=== PATIENT | male | born 1935 | race Caucasian/White ===

== ENCOUNTER 2018-06-06 11:31 | Outpatient (REF) | payer OTHER, SELFPAY ==
[2018-06-06 19:11] LABS: HCT 44.2 % (40.0-50.0); HGB 14.5 g/dL (13.5-17.5); Mean Corp. HGB Concentration 32.8 g/dL (32.0-36.0); Mean Corpuscular Volume 94.4 fL (80-95); Platelet Count 236 x1000/uL (130-400); RBC 4.68 m/cumm (4.50-6.00); RBC Distribution Width 13.1 % (11.8-14.1); White Blood Cell Count 7.59 k/cumm (4.4-10.8)
[2018-06-06 19:35] LABS: ALT 28 U/L (12-78); Albumin 3.8 g/dL (3.4-5.0); BUN 32 mg/dL (7-18); CREATININE 1.82 mg/dL (0.70-1.30); Calcium 9.3 mg/dL (8.5-10.1); Chloride 104 mmol/L (98-107); Estimated GFR 35.93 (mL/min/1.73m2); Glucose 104 mg/dL (70-100); Potassium 4.1 mmol/L (3.5-5.1); Sodium 141 mmol/L (136-145)
[2018-06-06 23:24] LABS: LDL CHOLESTEROL 82 mg/dL (<100)
== END 2018-06-06 11:51 ==
LOC: NCHCN 11:31
PROVIDERS: PCP Internal Medicine; Visit Provider Internal Medicine
DX: E78.5 Hyperlipidemia, unspecified (principal); L57.8 Other skin changes due to chronic exposure to nonionizing radiation; N18.3 Chronic kidney disease, stage 3 (moderate)
CPT/HCPCS: 80069; 83721; 85027; 84460

== ENCOUNTER 2018-11-11 08:52 | Outpatient (REF) | payer OTHER, SELFPAY ==
[2018-11-11 19:33] LABS: HCT 45.4 % (40.0-50.0); HGB 14.6 g/dL (13.5-17.5); Mean Corp. HGB Concentration 32.2 g/dL (32.0-36.0); Mean Corpuscular Hemoglobin 30.6 pg (27.0-33.0); Mean Corpuscular Volume 95.2 fL (80-95); Platelet Count 234 x1000/uL (130-400); RBC 4.77 m/cumm (4.50-6.00); RBC Distribution Width 13.5 % (11.8-14.1); White Blood Cell Count 6.51 k/cumm (4.4-10.8)
[2018-11-11 19:42] LABS: Iron 98 ug/dL (50-175); Total Iron Binding Capacity 315 ug/dL (250-450); Transferrin Sat 31 % (20-55)
[2018-11-11 19:54] LABS: PROTEIN 17.4 mg/dL (0.0-11.9)
[2018-11-11 20:09] LABS: Albumin 3.8 g/dL (3.4-5.0); Anion Gap 7.2 mmol/L (3-11); BUN 39 mg/dL (7-18); CO2 28.8 mmol/L (21.0-32.0); CREATININE 1.71 mg/dL (0.70-1.30); Calcium 9.1 mg/dL (8.5-10.1); Chloride 107 mmol/L (98-107); Estimated GFR 38.61 (mL/min/1.73m2); Ferritin 85 ng/mL (8-388); Potassium 4.3 mmol/L (3.5-5.1); Sodium 143 mmol/L (136-145)
[2018-11-11 20:22] LABS: COMMENT (LAB VIEW ONLY) 94.82 mg/dL; Microalb ug/mg Crea 16.3 ug/mg Cr
[2018-11-11 20:23] LABS: PHOSPHORUS 2.8 mg/dL (2.6-4.7); Uric Acid 8.5 mg/dL (3.5-7.2)
[2018-11-14 10:54] LABS: Parathyroid Hormone,Intact 94 pg/ml (19-88)
== END 2018-11-11 09:12 ==
LOC: LBN 08:52
PROVIDERS: PCP Internal Medicine; Visit Provider Internal Medicine Nephrology
DX: N18.3 Chronic kidney disease, stage 3 (moderate) (principal)
CPT/HCPCS: 80051; 84520; 85027; 82040; 82043; 82310; 82565; 82570; 82728; 83540; 83550; 83970; 84100; 84156; 84550

== ENCOUNTER 2019-12-11 13:26 | Outpatient (REF) | payer OTHER, SELFPAY ==
[2019-12-11 19:36] LABS: HCT 40.3 % (40.0-50.0); HGB 13.3 g/dL (13.5-17.5); Mean Corpuscular Hemoglobin 31.6 pg (27.0-33.0); Mean Corpuscular Volume 95.7 fL (80-95); Platelet Count 244 x1000/uL (130-400); RBC 4.21 m/cumm (4.50-6.00); RBC Distribution Width 13.6 % (11.8-14.1); White Blood Cell Count 7.49 k/cumm (4.4-10.8)
[2019-12-11 19:58] LABS: ALT 20 U/L (16-63); Albumin 3.7 g/dL (3.4-5.0); Anion Gap 7.9 mmol/L (3-11); BUN 41 mg/dL (7-18); CO2 26.1 mmol/L (21.0-32.0); CREATININE 1.79 mg/dL (0.70-1.30); Calcium 8.8 mg/dL (8.5-10.1); Chloride 105 mmol/L (98-107); Estimated GFR 36.54 (mL/min/1.73m2); Glucose 100 mg/dL (74-106); LDL CHOLESTEROL 81 mg/dL (<100); Potassium 4.1 mmol/L (3.5-5.1); Sodium 139 mmol/L (136-145)
[2019-12-11 20:10] LABS: PHOSPHORUS 2.9 mg/dL (2.6-4.7)
== END 2019-12-11 13:46 ==
LOC: NCHCN 13:26
PROVIDERS: PCP Internal Medicine; Visit Provider Internal Medicine
DX: N18.3 Chronic kidney disease, stage 3 (moderate) (principal); I10 Essential (primary) hypertension; E78.5 Hyperlipidemia, unspecified
CPT/HCPCS: 80069; 83721; 85027; 84460

== ENCOUNTER 2020-06-20 13:43 | Outpatient (REF) | payer OTHER, SELFPAY ==
[2020-06-20 16:01] LABS: Anion Gap 5.8 mmol/L (3-11); BUN 34 mg/dL (7-18); CO2 29.2 mmol/L (21.0-32.0); CREATININE 1.8 mg/dL (0.70-1.30); Calcium 9.5 mg/dL (8.5-10.1); Chloride 106 mmol/L (98-107); Estimated GFR 36.21 (mL/min/1.73m2); Glucose 96 mg/dL (74-106); Potassium 4.5 mmol/L (3.5-5.1); Sodium 141 mmol/L (136-145); TSH 0.92 uIU/mL (0.36-3.74); Vitamin B12 646 pg/mL (193-986)
== END 2020-06-20 14:03 ==
LOC: NCHCN 13:43
PROVIDERS: PCP Internal Medicine; Visit Provider Internal Medicine
DX: I10 Essential (primary) hypertension (principal); N18.30 Chronic kidney disease, stage 3 unspecified; G31.84 Mild cognitive impairment of uncertain or unknown etiology; R32 Unspecified urinary incontinence
CPT/HCPCS: 80048; 82607; 84443

== ENCOUNTER 2020-10-10 08:36 | Outpatient (REF) | payer OTHER, SELFPAY ==
[2020-10-10 18:41] LABS: HCT 43.9 % (40.0-50.0); HGB 14.4 g/dL (13.5-17.5); MCH 30.9 pg (27.0-33.0); MCHC 32.8 % (32.0-36.0); MCV 94.2 fL (80-95); MPV 10.5 fL (8.0-11.0); Platelet Count 260 10^3/uL (130-400); RBC 4.66 10^6/uL (4.36-5.78); RDW 13.1 % (11.8-14.1); RDW-SD 45.4 fL; WBC 7.39 10^3/uL (4.4-10.8)
[2020-10-10 18:56] LABS: Albumin 4.1 g/dL (3.4-5.0); Anion Gap 7.7 mmol/L (3-11); BUN 41 mg/dL (7-18); CO2 27.3 mmol/L (21.0-32.0); CREATININE 1.8 mg/dL (0.70-1.30); Calcium 9.4 mg/dL (8.5-10.1); Chloride 105 mmol/L (98-107); Estimated GFR 36.21 (mL/min/1.73m2); Glucose 99 mg/dL (74-106); PHOSPHORUS 3.2 mg/dL (2.6-4.7); Potassium 4.1 mmol/L (3.5-5.1); Sodium 140 mmol/L (136-145)
[2020-10-10 18:58] LABS: Iron 118 ug/dL (65-175); Total Iron Binding Capacity 338 ug/dL (250-450); Transferrin Sat 35 % (20-55)
[2020-10-10 19:02] LABS: COMMENT (LAB VIEW ONLY) 102.17 mg/dL; Microalb ug/mg Crea 23.9 ug/mg Cr
[2020-10-10 19:27] LABS: Ferritin 94 ng/mL (26-388)
[2020-10-14 10:51] LABS: Parathyroid Hormone,Intact 142 pg/mL (19-88)
== END 2020-10-10 08:37 | disposition home or self-care (01) ==
LOC: LBN 08:36
PROVIDERS: PCP Internal Medicine; Visit Provider Internal Medicine Nephrology
DX: N18.32 Chronic kidney disease, stage 3b (principal)
CPT/HCPCS: 80069; 85027; 82043; 82570; 82728; 83540; 83550; 83970

== ENCOUNTER 2021-06-17 16:39 | Outpatient (REF) | payer MEDICARE, SELFPAY ==
[2021-06-17 20:29] LABS: Bacteria Negative HPF (Negative); C & S Indicated? No; Crystals Many Triple Phos HPF (Negative); Epithelial Cells Negative HPF (Negative); Mucus Negative (Negative); RBC 20-50 HPF (0-2); WBC Negative HPF (0-5)
[2021-06-18 17:54] LABS: PSA, Diagnostic 12.4 ng/mL (0.0-6.5)
== END 2021-06-17 16:40 | disposition home or self-care (01) ==
LOC: NCHCN 16:39
PROVIDERS: PCP Internal Medicine; Visit Provider Physician Assistant
DX: R35.0 Frequency of micturition (principal); R31.9 Hematuria, unspecified; Z80.42 Family history of malignant neoplasm of prostate
CPT/HCPCS: 81015; 84153

== ENCOUNTER 2021-10-14 13:21 | Outpatient (REF) | payer MEDICARE, SELFPAY ==
[2021-10-14 19:33] LABS: Albumin 3.5 g/dL (3.4-5.0); Anion Gap 8.8 mmol/L (3-11); BUN 39 mg/dL (7-18); CO2 26.2 mmol/L (21.0-32.0); CREATININE 1.9 mg/dL (0.70-1.30); Calcium 9.1 mg/dL (8.5-10.1); Chloride 110 mmol/L (98-107); Estimated GFR 33.94 (mL/min/1.73m2); Glucose 102 mg/dL (74-106); PHOSPHORUS 2.8 mg/dL (2.6-4.7); Potassium 4.6 mmol/L (3.5-5.1); Sodium 145 mmol/L (136-145)
== END 2021-10-14 13:22 | disposition home or self-care (01) ==
LOC: LBN 13:21
PROVIDERS: PCP Internal Medicine; Visit Provider Internal Medicine Nephrology
DX: N18.32 Chronic kidney disease, stage 3b (principal)
CPT/HCPCS: 80051; 80069; 85027

== ENCOUNTER 2021-10-15 11:13 | Outpatient (REF) | payer MEDICARE, SELFPAY ==
[2021-10-15 20:41] LABS: HGB 13.5 g/dL (13.5-17.5); MCH 32.1 pg (27.0-33.0); MCHC 33.8 % (32.0-36.0); MCV 95 fL (80-95); Platelet Count 247 10^3/uL (130-400); RDW-SD 45.6 fL; WBC 11.09 10^3/uL (4.4-10.8)
== END 2021-10-15 11:14 | disposition home or self-care (01) ==
LOC: LBN 11:13
PROVIDERS: PCP Internal Medicine; Visit Provider Internal Medicine Nephrology
DX: N18.32 Chronic kidney disease, stage 3b (principal)
CPT/HCPCS: 85027

== ENCOUNTER 2022-01-16 19:02 | Outpatient (REF) | payer MEDICARE, SELFPAY ==
[2022-01-19 09:33] LABS: PSA, Screening 10.7 ng/mL (<=6.5)
== END 2022-01-16 19:03 | disposition home or self-care (01) ==
LOC: NCHCN 19:02
PROVIDERS: PCP Internal Medicine; Visit Provider Internal Medicine
DX: R97.20 Elevated prostate specific antigen [PSA] (principal); Z12.5 Encounter for screening for malignant neoplasm of prostate
CPT/HCPCS: 84153

== ENCOUNTER 2022-07-15 16:17 | Outpatient (REF) | payer MEDICARE, SELFPAY ==
[2022-07-15 21:32] LABS: Calculated LDL 77 mg/dL (<100); Cholesterol 178 mg/dL (<200); HDL Cholesterol 48 mg/dL (40-60); Triglyceride 267 mg/dL (<150)
[2022-07-15 21:51] LABS: Anion Gap 7.3 mmol/L (3-11); BUN 46 mg/dL (7-18); CO2 29.7 mmol/L (21.0-32.0); CREATININE 1.9 mg/dL (0.70-1.30); Calcium 9.8 mg/dL (8.5-10.1); Chloride 106 mmol/L (98-107); Estimated GFR 34.14 (mL/min/1.73m2); Glucose 116 mg/dL (74-106); Potassium 4.3 mmol/L (3.5-5.1); Sodium 143 mmol/L (136-145); Uric Acid 9.1 mg/dL (3.5-7.2)
[2022-07-16 18:09] LABS: PSA, Screening 13.3 ng/mL (<=6.5)
== END 2022-07-15 16:18 | disposition home or self-care (01) ==
LOC: NCHCN 16:17
PROVIDERS: PCP Internal Medicine; Visit Provider Internal Medicine
DX: R97.20 Elevated prostate specific antigen [PSA]; G31.84 Mild cognitive impairment of uncertain or unknown etiology; N18.30 Chronic kidney disease, stage 3 unspecified; Z12.5 Encounter for screening for malignant neoplasm of prostate; I10 Essential (primary) hypertension; E78.5 Hyperlipidemia, unspecified; R79.89 Other specified abnormal findings of blood chemistry
CPT/HCPCS: 80048; 80061; 84153; 84550

== ENCOUNTER 2022-10-07 21:52 | Outpatient (REF) | payer MEDICARE, SELFPAY ==
[2022-10-07 19:44] LABS: HCT 42.3 % (40.0-50.0); HGB 14.2 g/dL (13.5-17.5); MCHC 33.6 % (32.0-36.0); MCV 95 fL (80-95); MPV 10.2 fL (8.0-11.0); Platelet Count 307 10^3/uL (130-400); RBC 4.44 10^6/uL (4.36-5.78); RDW 12.9 % (11.8-14.1); RDW-SD 45.8 fL; WBC 7.94 10^3/uL (4.4-10.8)
[2022-10-07 19:54] LABS: Albumin 3.6 g/dL (3.4-5.0); Anion Gap 6.6 mmol/L (3-11); BUN 36 mg/dL (7-18); CO2 28.4 mmol/L (21.0-32.0); Calcium 9.4 mg/dL (8.5-10.1); Chloride 105 mmol/L (98-107); Glucose 112 mg/dL (74-106); PHOSPHORUS 2.8 mg/dL (2.6-4.7); Potassium 4.2 mmol/L (3.5-5.1); Sodium 140 mmol/L (136-145)
[2022-10-07 20:25] LABS: Creatinine,Urine 293.37 mg/dL; PROTEIN 24.1 mg/dL (0.0-11.9)
[2022-10-08 19:51] LABS: Parathyroid Hormone,Intact 198 pg/mL (19-88)
== END 2022-10-07 21:53 | disposition home or self-care (01) ==
LOC: LBN 21:52
PROVIDERS: PCP Internal Medicine; Visit Provider Internal Medicine Nephrology
DX: N18.32 Chronic kidney disease, stage 3b (principal)
CPT/HCPCS: 80069; 85027; 82565; 83970; 84156

== ENCOUNTER 2023-01-11 18:04 | Outpatient (REF) | payer MEDICARE, SELFPAY ==
[2023-01-11 19:39] LABS: ALT 22 U/L (16-63); Anion Gap 7.3 mmol/L (3-11); BUN 44 mg/dL (7-18); CO2 28.7 mmol/L (21.0-32.0); CREATININE 1.9 mg/dL (0.70-1.30); Calcium 9.4 mg/dL (8.5-10.1); Calculated LDL 48 mg/dL (<100); Chloride 106 mmol/L (98-107); Cholesterol 127 mg/dL (<200); Estimated GFR 33.93 (mL/min/1.73m2); Glucose 85 mg/dL (74-106); HDL Cholesterol 46 mg/dL (40-60); Potassium 4.4 mmol/L (3.5-5.1); Sodium 142 mmol/L (136-145); Triglyceride 166 mg/dL (<150)
[2023-01-11 19:51] LABS: Creatine Kinase 88 U/L (39-308)
[2023-01-12 18:33] LABS: PSA, Diagnostic 9.4 ng/mL (<=6.5)
== END 2023-01-11 18:05 | disposition home or self-care (01) ==
LOC: NCHCN 18:04
PROVIDERS: PCP Internal Medicine; Visit Provider Internal Medicine
DX: E78.5 Hyperlipidemia, unspecified (principal); I10 Essential (primary) hypertension; K21.9 Gastro-esophageal reflux disease without esophagitis; R97.20 Elevated prostate specific antigen [PSA]; N18.30 Chronic kidney disease, stage 3 unspecified
CPT/HCPCS: 80048; 80061; 82550; 84153; 84460

== ENCOUNTER 2023-03-22 13:38 | Outpatient (REF) | payer MEDICARE, SELFPAY ==
[2023-03-22 19:07] LABS: Uric Acid 8.5 mg/dL (3.5-7.2)
== END 2023-03-22 13:39 | disposition home or self-care (01) ==
LOC: NCHCN 13:38
PROVIDERS: PCP Internal Medicine; Visit Provider Nurse Practitioner Family
DX: M25.561 Pain in right knee (principal)
CPT/HCPCS: 84550

== ENCOUNTER 2023-07-16 21:09 | Outpatient (REF) | payer MEDICARE, SELFPAY ==
--- NOTE | 2023-07-16 11:15 | SKI_PTH ---
PAT[facility]: [id number] AGE/SX: 88/M ROOM: RE07/16/[address]: Henry Lehman : 1935 BED: DIS: 07/16/2023 SPEC #: [id number] RECD: 07/19/23 12:39 STATUS: TEDDY RUBIO #: [id number] KOURTNEY: 07/16/23 11:[address]: Henry Lehman DEPT: Surgical Specimen RECD BY: Allison Cali Tissues: 1 - SKIN BIOPSY(SHAVE/PUNCH) Procedures: SKIN LEVEL 4 Comments: [id number]
== END 2023-07-16 21:10 | disposition home or self-care (01) ==
LOC: NCHCN 21:09
PROVIDERS: PCP Internal Medicine; Referring Provider Internal Medicine; Visit Provider Internal Medicine
DX: C44.91 Basal cell carcinoma of skin, unspecified (principal)
CPT/HCPCS: 88305

== ENCOUNTER 2024-04-05 13:11 | Outpatient (REF) | payer MEDICARE, SELFPAY ==
--- OUTSIDE RECORDS SUMMARY | 2024-04-05 13:12 | XMS_ITS | Encounter Summary ---
Author Organization [facility] Address [facility] [address] [place] [id number] Care Team Providers Care Application Developer Manager Name Role Phone Henry Lehman MD Primary Care Provider [phone] Reason for Visit * Consultation (Routine) - Closed Specialty Diagnoses / Procedures Referred By Indu baum Referred To Contact Dermatology Diagnoses Squamous cell carcinoma, face Wilmer Cisneros MD [facility] [address] [place] [address] Maxim Rodriguez MD [facility] [address] [place] [address] Referral ID Status Reason Start Date Expiration Date V isits Requested Visits Authorized [id number] Closed Consult, Test & Treat 09/04/2023 09/03/2024 1 1 Encounter Details Date Type Department Care Team (Latest Contact Info) Description 09/14/2023 8:00 AM EDT Procedure visit Dermatology at [facility] [address] [place] [address] Maxim Rodriguez MD 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 Social History Tobacco Use Types Packs/Day Years Used Date Smoking Tobacco: Former Smokeless Tobacco: Never Sex and Gender Information Value Date Recorded Sex Assigned at Not on file Gender Identity Not on file Sexual Orientation Not on file documented as of this encounter Last Filed Vital Signs Vital Sign Reading Time Taken Comments Blood Pressure 125/63 09/14/2023 7:41 AM EDT Pulse 65 09/14/2023 7:41 AM EDT Temperature - - Respiratory Rate - - Oxygen Saturation - - Inhaled Oxygen Concentration - - Weight - - Height - - Body Mass Index - - documented in this encounter Progress Notes * Maxim Rodriguez MD - 09/14/2023 8:00 AM EDT Images from the original note were not included. Summary of Procedure(s): Site: right upper cutaneous lip Tumor Type: Squamous Cell Carcinoma + incidental basal cell carcinoma Stages to clear tumor: 3 Repair: advancement flap Images: The patient was asked to call with any issues and is aware that I am available 14/12 should questions arise. Maxim Rodriguez MD PhD Mohs Micrographic Surgery and Dermatologic Oncology Department of Dermatology Please note that I have reviewed the preoperative checklist from today's nursing visit including relevant social history and medications. I have reviewed the preoperative photos if available and the biopsy report. VITAL SIGNS: BP 125/63 (BP Location (NBP): Right arm, Patient Position: Sitting, BP Cuff Sizes: Adult (25-34 cm)) Pulse 65 PHYSICAL EXAMINATION: General: patient is awake, alert, oriented and in no acute distress. Skin: Focused examination of surgical site(s) performed which shows a well healed biopsy site with poorly defined surrounding hyperkeratosis and induration. PHYSICIAN REVIEW OF REPORTS, RECORDS, IMAGES: 1) The accompanying pathology report(s) associated with aforementioned biopsy slide(s) were/was also reviewed. Assessment: Anup Stanton is a 88 y.o. male presenting for: 1. 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 Plan: 1. Findings from the biopsy report, today's clinical exam, and other pertinent details were reviewed with patient today. All questions were answered. 2. Discussed treatment options based on the above findings. We recommended Mohs micrographic surgery for treatment of this tumor. Mohs micrographic surgery was indicated due to patient, site and/or tumor characteristics (see operative report for specific indication). 3. We discussed risks, benefits, and alternative treatment options to the Mohs micrographic surgeryprocedure and pertinent information including but not limited to the following: Risks include bleeding, infection, scar, recurrence, incomplete tumor removal or inability to cure with surgery alone if the tumor features are more aggressive than the initial pathology indicates. Occasionally, additional adjuvant treatments may be recommended. Additional risks include large wound, prolonged wound and healing, pain, swelling, bruising, increased appearance of vessels or worsening erythema of baseline skin; more rarely risks include damage to underlying structures such as nerves, cartilage, or muscle which could lead to temporary or permanent loss of sensation or motor function. Benefit is precise tumor removal If reconstruction is performed, it is specific to the patient and defect. Discussed that the shape, size, depth of the wound is often not known until the tumor is cleared and thus the reconstruction options are sometimes not known until after tumor clearance. Occasionally,referrals to other providers may be recommended for reconstruction based on patient preference and need. Reviewed the pros and cons of common reconstructions used for this tumor type, size, and location, and that reconstruction may lead to change in appearance. Natural history of scar was discussed, including that the scar will continue to mature for 1-2 years. Recommended avoidance of special ointments or scar creams, and avoidance of direct sun exposure to the scar for optimal recovery. Reviewed that there are some aspects of cosmesis that are dependent on patient's characteristics such as age, skin laxity/texture factors, inflammatory skin diseases such as rosacea, prior surgery/radiation, degree of actinic damage, smoking status, strength of the patient's immune system, diligentwound care, medications, and genetics. Having Mohs surgery may lead to physical limitations for optimal healing, such as restricted physical activity and heavy lifting. 4. Signs and symptoms of skin cancer reviewed. Patient to report any new, changing, or symptomatic lesions and follow up with his or her sales marketing or other skin provider. 5. Discussed avoiding direct sun exposure to scars for best cosmetic result. Note initiated by FLORENCIO Fay LPN has performed the documentation for this encounter in the presence of and acting as a scribe for Dr. Rodriguez I performed the above scribed service and agree with the accuracy of the documentation in this encounter. Reviewed and signed by: Maxim Rodriguez Dermat[facility] * Maxim Rodriguez MD - 09/14/2023 8:00 AM EDT Mohs micrographic Surgery Operative Report Patient name: Anup Stanton : 1935 Date: 09/14/2023 Staff Surgeon and Pathologist: Maxim Rodriguez MD PhD Nursing/Merchandise Presentation Associate(s): Loly Vazquez RN, Gavi Osborne LPN, Dulce Echeverria, Josie Bojorquez RN Coffee Bar Attendant (s): Pan Vinson CMA Pre-operative diagnosis: Squamous cell carcinoma Post-operative diagnosis: Same as above + incidental basal cell carcinoma Location/Site: Right upper cutaneous lip Procedure: Mohs micrographic surgery Indication(s) for Mohs micrographic surgery: Anatomic location for tissue conservation Stages: 3 Preoperative size of tumor: 1.5 x 1.7 cm Final defect size: 2.0 x 2.0 cm Stage I The nature and purpose of the procedure, associated risks, possible consequences and complications,and alternative forms of treatment were explained in detail. We reviewed the possible repairs basedon the clinical appearance of tumor but discussed that often the repair options may not be known until the tumor has yusuf extirpated. Informed consent and permission to take photographs were obtained. The site was confirmed with the patient/authorized sales representative rural power/referring physician and/or a photograph form time of biopsy. A pre-operative time-out (procedural pause) was conducted with no unresolved discrepancies noted. Local anesthesia was obtained with 0.5 % lidocaine with 1:200,000 epinephrine. The surgical site was prepped and draped in the usual sterile manner. A 1-2 mm margin was excised around clinically evident tumor as a complete layer. Hemostasis was achieved by electrocoagulation. The excised tissue was oriented and divided into 2 sections, chromacoded, and submitted for frozen sections. The patient tolerated the procedure well and without complications. On my personal microscopic evaluation of the frozen sections, residual tumor was identified as SUPERFICIAL BASAL CELL CARCINOMA - Extending from the epidermis and superficial hair follicles are multicentric buds of basaloid keratinocytes. The nuclei at the periphery of the islands have a palisaded arrangement. The tumor islands are associated with a fibromyxoid stroma and there is cleft formationbetween some of the islands and stroma. on section A2 (see section number on map). Stage II The surgical site was re-anesthetized with 0.5 % lidocaine with 1:200,000 epinephrine, re-prepped and redraped in a sterile manner. The residual tumor was re-excised as a complete layer 2-3mm in thickness using the Mohs map to delineate area of residual tumor. Hemostasis was achieved with electrocoa gulation. The tissue was oriented and divided into 1 sections, chromacoded, and submitted for frozen sections. The patient tolerated the procedure well and without complications. On my personal microscopic evaluation of the frozen sections, residual tumor was identified as SUPERFICIAL BASAL CELL CARCINOMA - Extending from the epidermis and superficial hair follicles are multicentric buds of basaloid keratinocytes. The nuclei at the periphery of the islands have a palisaded arrangement. The tumor islands are associated with a fibromyxoid stroma and there is cleft formationbetween some of the islands and stroma. on section(s) B1. Stage III The surgical site was re-anesthetized with 0.5 % lidocaine with 1:200,000 epinephrine, re-prepped and redraped in a sterile manner. The residual tumor was re-excised as a complete layer 2-3mm in thickness. Hemostasis was achieved with electrocoagulation. The tissue was oriented and divided into 1 sections, chromacoded, and submitted for frozen sections. The patient tolerated the procedure well and without complications. On my personal microscopic evaluation of the frozen sections, no residual tumor was identified on the deep or outer border of the sections. The final size of the defect after complete tumor removal was 2.0 x 2.0 cm, extending to muscle. Maxim Rodriguez MD PhD Mohs Micrographic Surgery and Dermatologic Oncology Department of Dermatology [address] [place] [id number] Repair Report (Flap) Patient name: Anup Stanton Staff Surgeon: Maxim Rodriguez MD PhD Community Services Coordinator(s): same as above senior office assistant: Sylvia Fernandes LPN, Vasu Anderson MD Date: 09/14/2023 Clinical Diagnosis: skin and soft tissue defect status post Mohs micrographic surgery Location/Site: Right upper cutaneous lip Indication: repair of wound with uatsdin of anatomy/function Defect size to be repaired: 2.0 x 2.0 cm Procedure: Advancement flap repair (tissue rearrangement) Final flap size: 2.5 x 4.0 cm 2 Procedure Details: Due to the size and location of the defect resulting from the complete removal of the tumor, the postoperative risk of hemorrhage, infection, and the possibility of serious deformity from scarring, and in order to restore proper function and prevent loss of function, the defect was closed with a flap. The nature and purpose of the procedure, associated risks, possible consequences, complications andalternative methods of treatment were explained to the patient in detail. An informed consent was obtained. Local anesthesia was obtained with a solution of 0.5 % lidocaine with 1:200,000 epinephrine. The surgical site was prepped and draped in the usual sterile manner. Any beveled edges of the defect were repaired with a scalpel blade. The flap was created by making incisions along the upper right and left cutaneous lip and columella. The flap and the wound edges were undermined, and hemostasis was obtained with electrocoagulation.The flap was advanced onto the defect. The skin edges were closed using 4.0 Monocryl dermal/subcutaneous sutures and 5.0 Chromic gut and 5.0 Fast gut skin sutures. Final flap size: 2.5 x 4.0 cm2. Estimated blood loss: Minimal. Complications: None. Wound care: Routine. Follow up as needed. The patient was discharged in good condition. Total anesthesia used today of 0.5 % lidocaine with 1:200,000 epinephrine: 15 cc Total anesthesia used today of 1% lidocaine with 1:100,000 epinephrine: 4 cc Post-operative medication: Tylenol 650 mg PO now Maxim Rodriguez MD PhD Mohs Micrographic Surgery and Dermatologic Oncology Department of Dermatology [address] [place] [address] Note initiated by Sylvia Fernandes LPN. Sylvia Fernandes LPN has performed the documentation for this encounter in the presence of and acting as a scribe for Dr. Rodriguez I performed the above scribed service and agree with the accuracy of the documentation in this encounter. 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 When ordered for pain, acetaminophen should be given even when other ordered pain medications are indicated., Routine Given 09/14/2023 10:30 AM EDT 650 mg documented in this encounter Care Teams Application Developer Manager Relationship Specialty Start Date End Date Henry Lehman MD [address] [place] [id number] PCP - General General Internal Medicine 08/19/23 documented as of this encounter
--- OUTSIDE RECORDS SUMMARY | 2024-04-05 13:12 | XMS_ITS | Continuity of Care Document ---
Author Organization [facility] Address [address] [place] [address] Care Team Providers Care Tank Crewmember Name Role Phone Henry Baez Primary Care Physician Encounter [facility] Date(s): 07/30/23 - 07/30/[address] [address] Discharge Disposition: Home or Self Care Attending Physician: Henry Baez MD Admitting Physician: Henry Baez MD Referring Physician: Henry Baez MD Allergies, Adverse Reactions, Alerts No Known Medication Allergies Immunizations Given and Recorded Vaccine Date Status Refusal Reason SARS-CoV-2 (COVID-19) mRNA-1273 vaccine 03/21/21 R ecorded SARS-CoV-2 (COVID-19) mRNA-1273 vaccine 07/31/20 R ecorded SARS-CoV-2 (COVID-19) mRNA-1273 vaccine 07/03/20 R ecorded Medications atorvastatin 20 mg oral tablet 90 EA, TAKE ONE TABLET BY MOUTH EVERY DAY, 0 Refill(s) Start Date: 11/19/22 Status: Ordered citalopram 20 mg oral tablet 90 EA, TAKE ONE TABLET BY MOUTH EVERY DAY, 0 Refill(s) Start Date: 11/19/22 Status: Ordered hydroCHLOROthiazide 25 mg oral tablet 90 EA, TAKE ONE TABLET BY MOUTH EVERY DAY, 0 Refill(s) Start Date: 11/19/22 Status: Ordered losartan 100 mg oral tablet 90 EA, TAKE ONE TABLET BY MOUTH EVERY DAY, 0 Refill(s) Start Date: 11/19/22 Status: Ordered NIFEdipine (Eqv-Adalat CC) 60 mg oral tablet, extended release 90 EA, TAKE ONE TABLET BY MOUTH EVERY DAY, 0 Refill(s) Start Date: 11/19/22 Status: Ordered tamsulosin 0.4 mg oral capsule 30 EA, TAKE ONE CAPSULE BY MOUTH EVERY NIGHT, 0 Refill(s) Start Date: 11/19/22 Status: Ordered Problem List Condition Confirmation Course Effective Dates Status H ealth Status Informant Adenomatous polyp of colon Confirmed Active Anxiety Confirmed Active Basal cell carcinoma - primary Confirmed Active CKD stage 3 Confirmed Active Dyspnea Confirmed Active Elevated PSA 1 Confirmed Active Gastritis Confirmed Active Gout Confirmed Active Hematuria Confirmed Active Hyperlipidemia Confirmed Active Hypertension Confirmed Active Inguinal hernia Confirmed Active Long-term current use of drug therapy Confirmed Active Melena Confirmed Active Mild cognitive impairment Confirmed Active Urinary incontinence Confirmed Active Urolithiasis Confirmed Active Vertigo Confirmed Active 1From 10-05-2021 visit: One-time PSA of 12, obtained during an episode of exacerbated lower urinary tract symptoms which have since resolved. Exam showed some right-sided induration but he has known prostatic calculi based on recent ultrasound. Given age, we are pursuing this conservatively. I recommended a PSA 3 months after the last (due late October), with follow-up based on results. Statistics for men in their 80s are that aggressive evaluation of the prostate which show about a 70% likelihood of having prostate cancer, most of these being indolent. However, with a PSA above 10 this could represent a more significant (clinically relevant) prostate cancer in a patient with physiology suggesting a 5 to 10-year lifeexpectancy. Social History Social History Type Response Tobacco Former tobacco user Tobacco Use:. 1 pack per day. 1 Sex Male 1quit ~46 years ago, smoked for 30 years Pulmonary function study * Event Display: Pulmonary Function Studies Please click on link to view image. Patient Care team information Care Team Personnel Name: Fallon Henry FERREIRA MD Position: No Access Member Role: Primary Care Physician Address: Address: [facility] [address], [place] [address] Name: [facility] Position: Physician Member Role: Informed Provider Address: Address: [address] [place] [phone] Care Team Related Persons Name: MIREYA BAY Address: Home [address] [place] [address], [phone]
--- OUTSIDE RECORDS SUMMARY | 2024-04-05 13:12 | XMS_ITS | Continuity of Care Document ---
Author Organization [facility] Ambulatory Clinics Address [address] [place] [address] Care Team Providers Care Footwear Sales Representative Name Role Phone JEFERSON STEPHEN Primary Care Physician Encounter [facility] NBR [id number] Date(s): 03/14/24 - 03/14/24 [facility] [address] [place] [address]- [place] Encounter Diagnosis History of squamous cell carcinoma of skin(Discharge Diagnosis) - 03/14/24 Abnormal skin growth(Discharge Diagnosis) - 03/14/24 Discharge Disposition: Home or Self Care Attending Physician: JAIMIE Perales Referring Physician: JEFERSON STEPHEN Allergies, Adverse Reactions, Alerts No Known Medication Allergies Assessment and Plan Extracted from: Title:ENT Office Visit Note Author:JAIMIE Keller Date:03/14/24 1.??History of squamous cell carcinoma of skin??Z85.828 Left preauricular lesion is consistent with nonmelanotic skin cancer probable squamous cell carcinoma which has been growing??fairly rapidly recently. ??This was biopsied today in the office as well as the other 2 lesions??in case they are??cancerous I suspect they may be these can also be removed at the time of the??left preauricular lesion.?? We discussed consideration for surgical excision of the left preauricular lesion??with frozen section. ??Will proceed with MAC anesthesia.?? He does primarily speak Albanian??and his??daughter and?? were present with him today.?? He has no??history of??cardiopulmonary disease. ??He is able to??walk up 2 flights of stairs without any chest pain or shortness of breath.?? Is a non-smoker. ??He does have history of??high blood pressure. ??No history of??prior problems with anesthesia or??bleeding problems.?? Will proceed with surgical??date tentatively May 04 and sooner if cancellations??pending pathology.?? Postbiopsy care instructions reviewed and provided. 2.??Abnormal skin growth??D49.2 Medications atorvastatin 20 mg oral tablet TAKE ONE TABLET BY MOUTH EVERY DAY Start Date: 03/14/24 Status: Ordered citalopram 20 mg oral tablet TAKE ONE TABLET BY MOUTH EVERY DAY Start Date: 03/14/24 Status: Ordered fluorouracil 5% topical cream APPLY TOPICALLY EVERY DAY IN THE MORNING FOR 21 DAYS Start Date: 03/14/24 Status: Ordered hydroCHLOROthiazide 25 mg oral tablet TAKE ONE TABLET BY MOUTH EVERY DAY Start Date: 03/14/24 Status: Ordered NIFEdipine (Eqv-Adalat CC) 60 mg oral tablet, extended release TAKE ONE TABLET BY MOUTH EVERY DAY, TAKE WITH 30 MG FOR TOTAL 90 MG DAILY Start Date: 03/14/24 Status: Ordered tamsulosin 0.4 mg oral capsule TAKE TWO CAPSULES BY MOUTH EVERY EVENING AT BEDTIME Start Date: 03/14/24 Status: Ordered Physician Outpatient Note * JAIMIE Perales: PERFORM JAIMIE Perales: PERFORM, MODIFY JAIMIE Perales: MODIFY Event Display: Office Clinic Note Physician Authored Date: [id number] REBECCA BAY :1935 Age:89 years Sex:Male Visit Date:03/14/2024 Primary Care Physician: JEFERSON STEPHEN Chief Complaint new patient - squamous cell on tragus History of Present Illness New patient referred for evaluation of possible??squamous cell on the left ear. 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 Review of Systems Negative for: no new cardiac, respiratory, GI, , hematologic, neurologic, psychological, allergic, traumatic or endocrine problems except as listed above Physical Exam GENERAL APPEARANCE:??The patient is awake, alert, and oriented and in no acute distress, Appears nutritionally sound, Healthy in appearance, Voice is strong, with no stridor or stertor, Handling secretions without difficulty.?PSYCH:??affect normal, good eye contact, oriented to person, oriented to place, oriented to time.?NEURO:??CN's II-XII grossly intact, Gait is normal,?HEENT:??The patient is normocephalic with a normal facies?NECK:??There is no palpable lymphadenopathy.?SKIN:??Surgical scar of the upper lip.?? Multiple actinic changes of the forearms bilaterally??prominent??lesion of the left??forearm concerning for probable skin cancer??photo documented??and 0.3 cm diameter,??large ulcerated??lesion??right??preauricular??further documented??2.3 cmdiameter??consistent with nonmelanotic skin cancer probably squamous cell,??no associated lymphadenopathy,??raised telangiectasia??ectatic??pearly lesion of the right abdomen??on??centimeter diameter??photo documented. ?MUSCULOSKELETAL:??normal gait and station.?? Images 2024-03-14 13:00:56 Procedure Surgery Consent??There was a full discussion of all treatment options including conservative management, second opinion and surgical intervention. The patient and or family has opted to proceed with surgical intervention. We have discussed risks and complications as it relates to the procedure and postoperative period, including but not limited to those listed on the consent. All of their questions were answered, consent was reviewed and signed. There is no history of any bleeding disorders or anesthesia complications. We will proceed..?PFP Shave Excision ? Location: (Left forearm??1.2 cm,??left preauricular 1 cm diameter,??right abdomen??0.9cm diameter biopsy) ?Prep:??Betadine used to prep site.?Consent:??The procedure was discussed, risks and complications explained and consent obtained.?Procedure:??Shave excision was performed, hemostasis was achieved and no complications.? Discharge Instructions:??Keep area moist with ointment and clean, follow up in seven days for pathology.?? Medical Decision Making: There was a full discussion of all treatment options including conservative management, second opinion and surgical intervention. The patient and or family has opted to proceed with surgical intervention. We have discussed risks and complications as it relates to the procedure and postoperative period, including but not limited to those listed on the consent. All of their questions were answered,consent was reviewed and signed. There is no history of any bleeding disorders or anesthesia complications. We will proceed. Assessment/Plan 1.??History of squamous cell carcinoma of skin??Z85.828 Left preauricular lesion is consistent with nonmelanotic skin cancer probable squamous cell carcinoma which has been growing??fairly rapidly recently. ??This was biopsied today in the office as well as the other 2 lesions??in case they are??cancerous I suspect they may be these can also be removed at the time of the??left preauricular lesion.?? We discussed consideration for surgical excision of the left preauricular lesion??with frozen section. ??Will proceed with MAC anesthesia.?? He does primarily speak Albanian??and his??daughter and?? were present with him today.?? He has no??history of??cardiopulmonary disease. ??He is able to??walk up 2 flights of stairs without any chest pain or shortness of breath.?? Is a non-smoker. ??He does have history of??high blood pressure. ??No history of??prior problems with anesthesia or??bleeding problems.?? Will proceed with surgical??date tentatively May 04 and sooner if cancellations??pending pathology.?? Postbiopsy care instructions reviewed and provided. 2.??Abnormal skin growth??D49.2 Problem List/Past Medical History Ongoing No qualifying data Historical No qualifying data Medications atorvastatin 20 mg oral tablet citalopram 20 mg oral tablet fluorouracil 5% topical cream hydroCHLOROthiazide 25 mg oral tablet NIFEdipine (Eqv-Adalat CC) 60 mg oral tablet, extended release tamsulosin 0.4 mg oral capsule Allergies No Known Medication Allergies Electronically Signed on 03/14/2024 15:48 EDT JAIMIE Perales Patient Care team information Care Team Personnel Name: JEFERSON STEPHEN Position: No Access Member Role: Primary Care Physician Address: [address] [place] [address] Care Team Related Persons Name: JOSELINE BAY Name: JOSELINE BAY Name: SILVIA VASQUEZ Name: KRIS VASQUEZ Name: REMBERTO VASQUEZ Insurance Providers Guarantor name: LYDIA Health Plan Information #: 1 Payer: [facility] [employer] Member Number: [id number] Policy Number: MARK Health Plan Information #: 2 Payer: [facility] [employer] Member Number: [id number] Policy Number:
--- OUTSIDE RECORDS SUMMARY | 2024-04-05 13:12 | XMS_ITS | Encounter Summary ---
Author Organization [facility] Address [facility] [place] [address] Care Team Providers Care Obstetrics Scrub Nurse Name Role Phone Lexie Brown MD Primary Care Provider [phone] Encounter Details Date Type Department Care Team ([facility] st Contact Info) Description 02/27/2022 Telephone Dermatology at [facility] [address] [place] [id number] Allison Jones LPN Social History Tobacco Use Types Packs/Day Years Used Date Smoking Tobacco: Never Assessed Sex and Gender Information Value Date Recorded Sex Assigned at Not on file Gender Identity Not on file Sexual Orientation Not on file documented as of this encounter Miscellaneous Notes * Telephone Encounter - Allison Jones LPN - 02/27/2022 10:29 AM EDT Spoke with patients son regarding his Dad's procedure on 03/03/22. He is unable to answer the questions regarding his Dad. He said that his parents only speak Yemeni. The daughter in law has had excisions before and explained to Mr. Stanton what will happen. Son will make sure he brings an updated med list with them. documented in this encounter Plan of Treatment Not on file documented as of this encounter Visit Diagnoses Not on filedocumented in this encounter Care Teams Obstetrics Scrub Nurse Relationship Specialty Start Date End Date Lexie Brown MD PCP - General 04/15/10 08/17/23 documented as of this encounter
--- OUTSIDE RECORDS SUMMARY | 2024-04-05 13:12 | XMS_ITS | Encounter Summary ---
Author Organization [facility] Address [facility] [place] [place] [address] Care Team Providers Care Consumer Marketing Analyst Name Role Phone Henry Lehman MD Primary Care Provider [phone] Encounter Details Date Type Department Care Team (Late st Contact Info) Description 09/03/2023 Telephone Dermatology at [facility] [address] [place] [address] Reid Fritz MD [facility] [address] [place] [address] Social History Tobacco Use Types Packs/Day Years Used Date Smoking Tobacco: Former Smokeless Tobacco: Never Sex and Gender Information Value Date Recorded Sex Assigned at Not on file Gender Identity Not on file Sexual Orientation Not on file documented as of this encounter Miscellaneous Notes * Telephone Encounter - Isabella Espitia - 09/03/2023 11:25 AM EDT I received a phone call from Rochelle who is the daughter in law of Anup Stanton. They were returning a call to Dr. Fritz about biopsy results. Anup uses a swazi management retail intern but was hoping that Dr. Fritz could call back when Rochelle is with them to get the results? I got verbal confirmation that it is ok to call Rochelle at [phone]. She lives a few doors down from Anup so when the call comes in she would go to them so they all could hear what the results are and what the treatment plan is going to be. documented in this encounter Plan of Treatment Not on file documented as of this encounter Visit Diagnoses Not on filedocumented in this encounter Care Teams Consumer Marketing Analyst Relationship Specialty Start Date End Date Henry Lehman MD [address] [place] [id number] PCP - General General Internal Medicine 08/19/23 documented as of this encounter
--- OUTSIDE RECORDS SUMMARY | 2024-04-05 13:12 | XMS_ITS | Clinical Summary ---
Author Organization [facility] [place] [address] Care Team Providers Care Industrial Cleaner Name Role Phone Henry Lehman MD Primary Care Provider Allergies Active Allergy Reactions Criticality Noted Date Comments Lisinopril 03/03/2022 Medications Medication Sig Dispensed Refills Start Date End Date Status fluorouraciL (EFUDEX) 5 % CreamIndications:Acti peace keratoses Apply a thin layer to affected areas on the forearms and backs of hands twice daily (morning and night) as tolerated for 3 weeks. 40 g 01/30/2022 Active Active Problems No known active problems Social History Tobacco Use Types Packs/Day Years Used Date Smoking Tobacco: Former Smokeless Tobacco: Never Sex and Gender Information Value Date Recorded Sex Assigned at Not on file Gender Identity Not on file Sexual Orientation Not on file Last Filed Vital Signs Vital Sign Reading Time Taken Comments Blood Pressure 125/63 09/14/2023 7:41 AM EDT Pulse 65 09/14/2023 7:41 AM EDT Temperature - - Respiratory Rate - - Oxygen Saturation - - Inhaled Oxygen Concentration - - Weight - - Height - - Body Mass Index - - Plan of Treatment Health Maintenance Due Date Last Done Comments Tetanus/Diphtheria/Pertussis Vaccines (1 - Tdap) 01[birth year]11/1954 Zoster vaccine (1 of 2) 1987 Advance Directive 01/11/1992 Pneumoccocal Vaccine: 65+ (1 of 1 - PCV) 2002 Covid-19 Vaccine (2023-2 5 season) 2024 05/07/2023, 03/11/2022, 03/21/2021, Additional history exists Influenza (Flu) vaccine (1 o f 1 - Influenza standard series) 01/23/2024 Advance Directives Documents on File Type Date Recorded Patient Senior Environmental Technician Expl anatelizabeth Personal Senior Environmental Technician 09/20/2023 10:22 AM lan stanton Personal Senior Environmental Technician 09/20/2023 10:22 AM gilbert stanton Personal Senior Environmental Technician 09/16/2023 7:32 AM Care Teams Industrial Cleaner Relationship Specialty Start Date End Date Henry Lehman MD [address] [place] [id number] PCP - General General Internal Medicine 08/19/23
--- OUTSIDE RECORDS SUMMARY | 2024-04-05 13:12 | XMS_ITS | Encounter Summary ---
Author Organization [facility] Address [facility] [place] [address] Care Team Providers Care Sheeting Puller Name Role Phone Lexie Brown MD Primary Care Provider [phone] Reason for Visit * Consultation (Routine) - Closed Specialty Diagnoses / Procedures Referred By Indu baum Referred To Contact Dermatology Diagnoses Disorder of the skin and subcutaneous tissue, unspecified Actinic keratosis Skin Lesion, Actinic Skin Damage; Prior Patient-Notes Received Procedures Consult Lian Lovell PA [address] [place] [id number] [facility] Dermatology [address] [place] [address] Referral ID Status Reason Start Date Expiration Date Visits Re quested Visits Authorized [id number] Closed 12/23/2021 12/23/2022 1 1 Encounter Details Date Type Department Care Team (Late st Contact Info) Description 01/30/2022 11:15 AM EDT Office Visit Dermatology at [facility] [address] [place] [address] Agata Ferrer MD [facility] [address] [place] [address] Neoplasm of unspecified behavior of bone, soft tissue, and skin; Actinic keratoses; Seborrheic keratoses Social History Tobacco Use Types Packs/Day Years Used Date Smoking Tobacco: Never Assessed Sex and Gender Information Value Date Recorded Sex Assigned at Not on file Gender Identity Not on file Sexual Orientation Not on file documented as of this encounter Patient Instructions * Patient Instructions* Gadiel Saleh - 01/30/2022 11:15 AM EDT Images from the original note were not included. How to use 5-fluorouracil (Efudex) 5% cream Area(s) to be treated: forearms, backs of hands Treatment length: Twice daily (morning and evening) for 3 weeks. Instructions for use: Wash your hands before applying. Wash area with a gentle cleanser and pat dry. Use a clean fingertip to apply a small amount to the affected area. Use just enough to cover the area with a thin film. Avoid your eyes, nostrils and mouth. (Note: Even when treating the entire face,a pea-sized amount should be sufficient.) Rub cream into skin. Do NOT cover with a Band-Aid or other coverings. Wash your hands after applying. After 1 hour, you may apply moisturizer, sunscreen and/or makeup to the area. What to expect: Reactions vary from person to person. During this treatment, your skin may become red, inflamed, irritated (i.e., burning, crusting, weeping, oozing, etc.) and potentially tender or painful. This is a normal reaction. After the treatment period is complete, your skin will take several weeks to heal completely. For discomfort, you may take Tylenol or ibuprofen. You may also apply wet compresses as well as petroleum jelly, such as Vaseline or Aquaphor, to soothe the skin. While you should expect some lzxs-fr-[id number] discomfort and tenderness, if pain is excessive and interferes with daily activity or keeps you awake at night, you may pause treatment for 1-2 days. Please contact the clinic if you develop a fever or a thick yellow/honey-colored crust over the treatedarea. Warnings: - Use only as directed. - Do not share this medication. - Do not use other topical or medicated products on the treatment area unless instructed to do so by your doctor. The photos below represent normal reaction during treatment (L-R: Day 6, Day 16, Day 18) documented in this encounter Progress Notes * Agata Ferrer MD - 01/30/2022 11:15 AM EDT Images from the original note were not included. DEPARTMENT OF DERMATOLOGY Medical Dermatology Clinic Provider: Agata Ferrer MD Patient's preferred name Anup Preferred contact method for results [x]Phone []myD-H []Letter Detailed phone message OK? yes Are there any other people with whom we may discuss your care? no Past Medical History Date, location, treatment Melanoma no Dysplastic nevi no SCC no BCC no AKs no UV Exposure & Protection Family History Details Melanoma no NMSC no Other relevant family history Social History Occupation: retired Hobbies: Other: Pre-Procedure Screening Details Allergy to lidocaine, epinephrine, Dermabond, chlorhexidine, or adhesives no Bleeding disorder or blood thinners no Pacemaker, defibrillator, deep brain stimulator, cochlear implant no History of Present Illness: Anup Stanton is a 87 y.o. Patient is referred to the clinic at [facility] of Lian Lovell for a spot of concern on the left arm. - He reports that this lesion has been present for years and is asymptomatic. He denies any prior treatments. - There is a spot on the upper right abdomen which has been present for 7 years. - There are spots on the back the patient wanted examined. - Patient speaks Romansh. Patient requested a medical office receptionist assistant today. - Patient requested that we reach out to his son to relay the results of the biopsy. Patient's son's number: Review of Systems: General: Feeling well. Skin: No other skin concerns. Medications: Reviewed in eD-H Allergies: Reviewed in eD-H Skin Examination: Focused skin examination of the forearms, backs of hands, upper right abdomen, back was normal withthe exception of the findings below. Assessment/Plan #. Favor BCC - 1 cm red, pearly plaque on the upper right chest (Figure 1). - Recommended a skin biopsy to confirm/clarify the nature of the skin lesion. After discussion of potential risks (scarring, bleeding, infection) and recurrence, patient agreed to proceed. - Patient denies known allergies to lidocaine and epinephrine. Procedure: Skin shave biopsy Location: upper right chest Discussed indications for procedure and expectations including risks and benefits. Verbal consent obtained. Time out performed. Skin prepped with alcohol. Local anesthesia with 1% xylocaine, 1/100,000 epinephrine. A sample of the lesion was removed by shave technique to the level of the dermis and s ubmitted to Pathology. Hemostasis obtained (AlCl). There were no complications; patient tolerated the procedure well. Wound dressed. Post-procedure expectations, wound care and activity restrictions reviewed. - Follow-up based on pathology results. #. Diffuse Actinic Keratoses - Ill-defined gritty papules on the forearms and backs of hands. - Explained premalignant potential of these lesions. - Discussed treatment with 5-FU and its risks and benefits. - Patient elects to proceed with 5-FU treatment. - Start Rx 5-fluorouracil (Efudex) 5% cream: Apply a thin layer to affected areas on the forearms twice daily (morning and night) as tolerated for 3 weeks. - Reviewed expectations, typical reaction, and restrictions on light exposure during treatment. Patient understands that affected area will likely become red, irritated and tender during treatment and that this is a normal reaction. Discussed option to hold treatment for 1-2 days if inflammation becomes too intense or patient experiences discomfort. - Instructed patient to return to clinic for re-evaluation if lesion(s) does not resolve as expected with this treatment. #. Seborrheic Keratoses - Stuck on, waxy papules on the trunk and extremities. - Discussed benign nature of lesions and provided reassurance. No treatment necessary at this time. Figure 1 Photo(s) taken and charted with patient's verbal consent. Other: ??? N/A RTC: Pending pathology and 3 months for 5-FU follow-up and FSE []Note routed to corporate legal secretary []Recall placed in scheduling system [x]Appointment scheduled at checkout Scribe attestation: Gadiel Saleh and Radha Robb [facility] have performed the documentation for this encounter in the presence of and acting as a scribe for Agata Ferrer MD. I performed the above scribed service and agree with the accuracy of the documentation in this encounter. Reviewed and signed by: Agata Ferrer MD Dermatology [facility] * Agata Ferrer MD - 01/30/2022 11:15 AM EDT Allison, please call patient's son (phone number in most recent note) and inform him of results of BCC, recommend excision for complete removal. * Agata Ferrer MD - 01/30/2022 11:15 AM EDT DERMATOLOGY TELEPHONE NOTE Anup Stanton 02[birth year]2022 [id number] Reason for call: Discuss biopsy results I called the patient this afternoon to discuss the results of his recent biopsy. Message left for patient's son Lan per patient's request. There was no answer, asked for call back to discuss the results in more detail Agata Ferrer MD Dermatology Resident * Allison Jones LPN - 01/30/2022 11:15 AM EDT Spoke with son regarding patients biopsy results. He understands per Dr. Ferrer it was a BCC and she recommends excision. Son understands. Marylin please call son to schedule. Pt speaks kenyan. documented in this encounter Plan of Treatment Not on file documented as of this encounter Procedures Procedure Name Priority Date/Time Associated Diagnosis Comments SPECIMEN TO PATHOLOGY Routine 01/30/2022 11:56 AM EDT Neoplasm of unspecified behavior of bone, soft tissue, and skin SURGICAL PATHOLOGY REPORT Routine 01/30/2022 11:04 AM EDT documented in this encounter Results * Specimen to Pathology (01/30/2022 11:56 AM EDT) AP Specimen 01/30/2022 11:5 6 AM EDT 01/30/2022 11:56 AM EDT Narrative [facility] - 01/30/2022 11:56 AM EDT Specimen requisition ordered. ??Separate Pathology report to follow Agata Ferrer MD PATHOLOGY/CYTOLOGY O BOBBI [facility] [place] [address] * Surgical Pathology Report (01/30/2022 11:04 AM EDT) Final Diagnosis [id number] ? Location: [facility] The signing pathologist has (i) examined the relevant preparation(s) for the specimen(s) and (ii) rendered or confirmed the diagnosis(es). . ?Surgical Pathology DIAGNOSIS A - Upper right chest, skin shave biopsy: - ??Basal cell carcinoma, nodular and infiltrating patterns, ?? present at the peripheral and deep specimen edges Electronically signed by: ?Antonio REBOLLEDO, PhD, [facility] Verified: ??02/03/2022 13:32 ??Dermatopatholo gist Performed at: ??-[facility] Dept. of Pathology, [place], [place] SPECIMEN(S) SUBMITTED A - upper right chest, skin shave biopsy (1) CLINICAL INFORMATION Favor BCC. 1 cm red pearly plaque SPECIMEN PROCESSING A - Labeled/Fixative : Patient demographics, formalin. Quantity/Size: ??Single, 1.2 x 0.9 x 0.3 cm. Tissue Description: Granular, partly crusted, friable pink-white papule. Sections/Process ing: Inked, serially sectioned and entirely submitted in 2 cassettes as follows: ?A1: ??Tips ?A2: ??Body ??pps 02/03/2022 1:32 PM EDT [facility] SPECIMEN FROM SKIN / Unknown 01/30/2022 11:04 AM EDT 01/30/2022 11:04 AM EDT Agata Ferrer MD PATHOLOGY/CYTOLOGY O [facility] [place] [id number] documented in this encounter Visit Diagnoses Diagnosis Neoplasm of unspecified behavior of bone, soft tissue, and skin Actinic keratoses Actinic keratosis Seborrheic keratoses documented in this encounter Care Teams Sheeting Puller Relationship Specialty Start Date End Date Lexie Brown MD PCP - General 04/15/10 08/17/23 documented as of this encounter
--- OUTSIDE RECORDS SUMMARY | 2024-04-05 13:12 | XMS_ITS | Continuity of Care Document ---
Author Organization [facility] Address [address] [place] [address] Care Team Providers Care Aircraft Maintenance Instructor Name Role Phone Henry Ureña Primary Care Physician Encounter [id number] Date(s): 03/04/23 - 03/04/23 [facility] [address] [place] [address] Discharge Disposition: Home or Self Care Attending [...] ~46 years ago, smoked for 30 years Patient Care team information Care Team Personnel Name: Henry Ureña MD Position: Physician Member Role: Informed Provider Address: Address: [address] [place] [phone] [place] Care Team Related Persons Name: MIREYA BAY Address: Home [address] [place] [address], [id number]
--- OUTSIDE RECORDS SUMMARY | 2024-04-05 13:12 | XMS_ITS | Encounter Summary ---
Author Organization [facility] Address [facility] [place] [address] Care Team Providers Care Administrative Support Technician Name Role Phone Lexie Brown MD Primary Care Provider [phone] Encounter Details Date Type Department Care Team (Latest Contact Info) Description 03/03/2022 10:00 AM EDT Clinical Support Dermatology at [facility] [address] [place] [address] Jackie Lord MD [facility] [address] Basal cell carcinoma (BCC), unspecified site Social History Tobacco Use Types Packs/Day Years Used Date Smoking Tobacco: Former Smokeless Tobacco: Never Sex and Gender Information Value Date Recorded Sex Assigned at Not on file Gender Identity Not on file Sexual Orientation Not on file documented as of this encounter Last Filed Vital Signs Vital Sign Reading Time Taken Comments Blood Pressure 147/71 03/03/2022 10:33 AM EDT Pulse 53 03/03/2022 10:33 AM EDT Temperature - - Respiratory Rate - - Oxygen Saturation - - Inhaled Oxygen Concentration - - Weight - - Height - - Body Mass Index - - documented in this encounter Progress Notes * Viviana Ray RN - 03/03/2022 10:00 AM EDT Pre Procedure Nurse Intake: Provider: MD Anup Boyd is a 87 y.o. male presents to the clinic today for a procedure visit. Pre surgery Vital signs: Patient Vitals for the past 24 hrs: Pulse BP 03/03/22 1033 53 147/71 Reviewed surgery expectations and after visit wound care instructions with patient. Patient verbalized understanding. Confirmed location with patient. Prepared patient for surgery. Viviana Ray LPN documented in this encounter Plan of Treatment Not on file documented as of this encounter Visit Diagnoses Diagnosis Basal cell carcinoma (BCC), unspecified site documented in this encounter Care Teams Administrative Support Technician Relationship Specialty Start Date End Date Lexie Brown MD PCP - General 04/15/10 08/17/23 documented as of this encounter
--- OUTSIDE RECORDS SUMMARY | 2024-04-05 13:12 | XMS_ITS | Encounter Summary ---
Author Organization [facility] Address [facility] [place] [address] Care Team Providers Care Apartment Leasing Specialist Name Role Phone Henry Lehman MD Primary Care Provider [phone] Reason for Visit * Reason Comments Procedure Encounter Details Date Type Department Care Team (Latest Contact Info) Description 11/15/2023 3:20 PM EDT Procedure visit Dermatology at [address] [address] Wilmer Cisneros MD [facility] [place] [address] History of SCC (squamous cell carcinoma) of skin; Actinic keratoses Social History Tobacco Use Types Packs/Day Years Used Date Smoking Tobacco: Former Smokeless Tobacco: Never Sex and Gender Information Value Date Recorded Sex Assigned at Not on file Gender Identity Not on file Sexual Orientation Not on file documented as of this encounter Progress Notes * Wilmer Cisneros MD - 11/15/2023 3:20 PM EDT Images from the original note were not included. DEPARTMENT OF DERMATOLOGY Medical Dermatology Clinic Provider: Wilmer Cisneros MD Patient's preferred name Anup Preferred contact [...] of Present Illness: Anup Stanton is a 88 y.o. Patient returns to clinic today for ED&C and spots of concern. 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 Assessment/Plan #. Biopsy-Proven SCCis - 1.5 cm healing biopsy site on the right flank. - Reviewed pathology and ED&C procedure with patient. [place] decision to proceed with ED&C today. - Patient denies allergies to lidocaine and epinephrine. - Patient denies having a pacemaker or defibrillator. Procedure: Destruction of lesion by electrodesiccation and curettage (ED&C) Location: As noted above. Discussed indications and expectations including risks and benefits. Verbal consent obtained. Skin prepped with alcohol. Local anesthesia with 1% xylocaine, 1/100,000 epinephrine. The entire lesion plus a small margin was treated. Post- curettage defect size: 1.9 cm. There were no complications; patient tolerated the procedure well. Wound dressed. Expectations (including discomfort management) andwound care reviewed. #. Biopsy-Proven SCCis - 1.7 cm healing biopsy site on the left flank. - Biopsied by PCP. Pathology report in Media tab. - Reviewed pathology and ED&C procedure with patient. [place] decision to proceed with ED&C today. - Patient denies allergies to lidocaine and epinephrine. - Patient denies having a pacemaker or defibrillator. Procedure: Destruction of lesion by electrodesiccation and curettage (ED&C) Location: As noted above. Discussed indications and expectations including risks and benefits. Verbal consent obtained. Skin prepped with alcohol. Local anesthesia with 1% xylocaine, 1/100,000 epinephrine. The entire lesion plus a small margin was treated. Post- curettage defect size: 1.9 cm. There were no complications; patient tolerated the procedure well. Wound dressed. Expectations (including discomfort management) andwound care reviewed. #. Hyperkeratotic Actinic Keratosis - Scaly irregular pink papule located on central abdomen x1 - Discussed etiology and treatment options with patient - Joint decision to pursue LN2 x 2 to lesion. Advised to return if lesion(s) do not resolve. Procedure Note: Procedure: Destruction of lesions with cryotherapy. Number: 1 Location: as above Discussed procedure and expectations including risks (including risk of hypopigmentation) and benefits. Verbal consent obtained. Frozen with LN2, 15-30 second thaw time, TWICE. There were no complications; the patient tolerated the procedure well. Post-procedure expectations and wound care were reviewed. #. Actinic Keratosis - Scaly irregular pink papules located on left helix x1, right lower extremityx2 - Discussed etiology and treatment options with patient - Joint decision to pursue LN2 x 2 to lesion. Advised to return if lesion(s) do not resolve. Procedure Note: Procedure: Destruction of lesions with cryotherapy. Number: 3 Location: as above Discussed procedure and expectations including risks (including risk of hypopigmentation) and benefits. Verbal consent obtained. Frozen with LN2, 15-30 second thaw time, TWICE. There were no complications; the patient tolerated the procedure well. Post-procedure expectations and wound care were reviewed. Other: N/A RTC: August 2024 for FSE []Note routed to engineering secretary [x]Recall placed in scheduling system []Appointment scheduled at checkout Scribe attestation: Aura Padron [facility] has performed the documentation for this encounter inthe presence of and acting as a scribe for Wilmer Cisneros MD. I performed the above scribed service and agree with the accuracy of the documentation in this encounter. Reviewed and signed by: Wilmer Cisneros MD [facility] Staff cobol engineer: Cielo Nix MD [facility] * Cielo Nix MD - 11/15/2023 3:20 PM EDT I was the supervising physician working with the Dermatology resident, Wilmer Cisneros MD, in the care of this Dermatology patient in person. For the purposes of billing, the resident provided the care. I have reviewed the encounter note details and level of service. Cielo Nix MD Staff Turning Sander Operator Department of Dermatology [facility] documented in this encounter Plan of Treatment Not on file documented as of this encounter Visit Diagnoses Diagnosis History of SCC (squamous cell carcinoma) of skin Personal history of other malignant neoplasm of skin Actinic keratoses Actinic keratosis documented in this encounter Care Teams Apartment Leasing Specialist Relationship Specialty Start Date End Date Henry Lehman MD [address] [place] [id number] PCP - General General Internal Medicine 08/19/23 documented as of this encounter
--- OUTSIDE RECORDS SUMMARY | 2024-04-05 13:12 | XMS_ITS | Encounter Summary ---
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 Date of : 1935 Today's Date: 09/14/2023 REFERRING PROVIDER: Wilmer Cisneros CC: Mohs micrographic surgery for treatment of a cutaneous tumor HPI: Anup Stanton is a 88 y.o. male presenting for biopsy-proven squamous cell carcinoma, location on the right upper cutaneous lip. The dermatologic preoperative information sheet was reviewed with pertinent positive and negative as below. DERMATOLOGIC PRE-OPERATIVE EVALUATION AND REVIEW OF SYSTEMS History of Mohs surgery? no If yes, have you ever had Mohs surgery with Dr. Rodriguez? no Pacemaker/Defibrillator? no Joint replacement or other implantable devices (e.g. Cochlear implant)? If yes then when? no Do you take a blood thinner? No History of organ transplant? no History of artificial valve or stroke? no History of liver disease or bleeding disorder? no Do you have any medical problems that may affect your upcoming surgery? no Do you have any concerns regarding your upcoming surgery? no We ask patients to discontinue Fish oil/Multivitamin/Vit E/?? supplements and natural medicines not prescribed by a physician 1 week prior to surgery. 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
--- OUTSIDE RECORDS SUMMARY | 2024-04-05 13:12 | XMS_ITS | Encounter Summary ---
Author Organization [facility] [place] [address] Care Team Providers Care Bilingual Sales Consultant Name Role Phone Henry Lehman MD Primary Care Provider [phone] Encounter Details Date Type Department Care Team (Latest Contact Info) Description 08/19/2023 Travel Social History Tobacco Use Types Packs/Day Years Used Date Smoking Tobacco: Former Smokeless Tobacco: Never Sex and Gender Information Value Date Recorded Sex Assigned at Not on file Gender Identity Not on file Sexual Orientation Not on file documented as of this encounter Plan of Treatment Not on file documented as of this encounter Visit Diagnoses Not on filedocumented in this encounter Care Teams Bilingual Sales Consultant Relationship Specialty Start Date End Date Henry Lehman MD [address] [place] [address] [phone] PCP - General General Internal Medicine 08/19/23 documented as of this encounter
--- OUTSIDE RECORDS SUMMARY | 2024-04-05 13:12 | XMS_ITS | Encounter Summary ---
Author Organization [facility] Address [facility] [place] [address] Care Team Providers Care Tack Coverer Name Role Phone Lexie Brown MD Primary Care Provider [phone] Reason for Referral * Consultation (Routine) - Authorized Specialty Diagnoses / Procedures Referred By Indu baum Referred To Contact Dermatology Diagnoses Squamous cell carcinoma of skin Henry Lehman MD [address] [place] [address] [facility] Dermatology [address] [place] [address] Referral ID Status Reason Start Date Expiration Date Visits Requested Visits Authorized [id number] Authorized Consult, Test & Treat PCP Updated and/or Approved 3 05/07/2024 6 6 Encounter Details Date Type Department Care Team (Latest Contact Info) Description 05/13/2023 Transcribe Orders eDH Incoming Referrals [phone] Henry Lehman MD [address] [place] [phone] Squamous cell carcinoma of skin Social History Tobacco Use Types Packs/Day Years Used Date Smoking Tobacco: Former Smokeless Tobacco: Never Sex and Gender Information Value Date Recorded Sex Assigned at Not on file Gender Identity Not on file Sexual Orientation Not on file documented as of this encounter Plan of Treatment Scheduled Referrals Name Type Priority Associated Diagnoses Order Schedule Referral to Dermatology Outpatient Referral Routine Squamous cell carcinoma of skin Ordered: 05/13/2023 documented as of this encounter Visit Diagnoses Diagnosis 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
--- OUTSIDE RECORDS SUMMARY | 2024-04-05 13:12 | XMS_ITS | Continuity of Care Document ---
Author Organization [facility] Address [address] [place] [address] Care Team Providers Care Rental Car Deliverer Name Role Phone JEFERSON STEPHEN Primary Care Physician [phone] Encounter [facility]BR [id number] Date(s): 02/28/24 - 02/28/24 [facility] [address] [place] [address]- [place] Patient Care team information Care Team Personnel Name: JEFERSON STEPHEN Position: No Access Member Role: Primary Care Physician Address: [address] [place] [address] [place] Insurance Providers Guarantor name: Health Plan Information #: 1 Payer: [facility] [employer] Member Number: NA Policy Number: NA
--- OUTSIDE RECORDS SUMMARY | 2024-04-05 13:12 | XMS_ITS | Encounter Summary ---
Author Organization [facility] Address [facility] [place] [address] Care Team Providers Care Program And Research Coordinator Name Role Phone Henry Lehman MD Primary Care Provider [phone] Encounter Details Date Type Department Care Team (Late st Contact Info) Description 09/03/2023 Telephone Dermatology at [facility] [address] [place] [address] Wilmer Cisneros MD [facility] [address] [place] [address] Social History Tobacco Use Types Packs/Day Years Used Date Smoking Tobacco: Former Smokeless Tobacco: Never Sex and Gender Information Value Date Recorded Sex Assigned at Not on file Gender Identity Not on file Sexual Orientation Not on file documented as of this encounter Miscellaneous Notes * Telephone Encounter - Loren Silverman - 09/03/2023 4:35 PM EDT 2nd call checking in on coordinating biopsy results call so she can be present to help Anup Stanton. [phone] Cisneros documented in this encounter Plan of Treatment Not on file documented as of this encounter Visit Diagnoses Not on filedocumented in this encounter Care Teams Program And Research Coordinator Relationship Specialty Start Date End Date Henry Lehman MD [address] [place] [id number] PCP - General General Internal Medicine 08/19/23 documented as of this encounter
--- OUTSIDE RECORDS SUMMARY | 2024-04-05 13:12 | XMS_ITS | Continuity of Care Document ---
Author Organization [facility] Address [address] [place] [address] Care Team Providers Care Design And Sales Consultant Name Role Phone PrimeHenry Moncada Primary Care Physician Encounter [facility] Date(s): 12/01/22 - 12/01/22 [facility] [address] [place] [address] Discharge Disposition: Home or Self Care Attending Physician: Brock Granda MD Admitting Physician: Brock Granda MD Referring Physician: [facility] Allergies, Adverse Reactions, Alerts No Known Medication Allergies Assessment and Plan Future Appointments Diagnostic Tests Pending * Surgical Pathology [facility] 12/01/22 Immunizations Given and Recorded Vaccine Date Status [...] team information Care Team Personnel Name: [facility] Position: Physician Member Role: Primary Care Physician Address: Address: [address] [place] [id number] [place]
--- OUTSIDE RECORDS SUMMARY | 2024-04-05 13:12 | XMS_ITS | Encounter Summary ---
[facility] [place] [address] Care Team Providers Care Snow Plow Operator Name Role Phone Henry Lehman MD Primary Care Provider Encounter Details Date Type Department Care Team (Latest Contact Info) Description 11/15/2023 Travel Social History Tobacco Use Types Packs/Day [...] on filedocumented in this encounter Care Teams Snow Plow Operator Relationship Specialty Start Date End Date Henry Lehman MD [address] [place] [phone] PCP - General General Internal Medicine 08/19/23 documented as of this encounter
--- OUTSIDE RECORDS SUMMARY | 2024-04-05 13:12 | XMS_ITS | Encounter Summary ---
Author Organization [facility] Address [facility] [place] [address] Care Team Providers Care Workers' Compensation Claims Examiner Name Role Phone Henry Lehman MD Primary Care Provider [phone] Reason for Referral * Consultation (Routine) - Closed Specialty Diagnoses / Procedures Referred By Indu t Referred To Contact Dermatology Diagnoses Squamous cell carcinoma, face Luis E Woo MD [facility] [place] [address] Maxim Rodriguez MD [facility] [place] [address] Referral ID Status Reason Start Date Expiration Date V isits Requested Visits Authorized [id number] Closed Consult, Test & Treat 09/04/2023 09/03/2024 1 1 Reason for Visit * Consultation (Routine) - Authorized Specialty Diagnoses / Procedures Referred By Contac t Referred To Contact Dermatology Diagnoses Squamous cell carcinoma of skin Henry Lehman MD [address] [address] [facility] Dermat[facility] [address] [place] [address] Referral ID Status Reason Start Date Expiration Date Visits Requested Visits Authorized [id number] Authorized Consult, Test & Treat PCP Updated and/or Approved 3 05/07/2024 6 6 Encounter Details Date Type Department Care Team (Late st Contact Info) Description 08/19/2023 10:40 AM EDT Office Visit Dermatology at [facility] [address] [place] [address] Luis E Woo MD [facility] [address] [place] [address] Neoplasm of unspecified behavior of bone, soft tissue, and skin; AK (actinic keratosis); Squamous cell carcinoma in situ; Squamous cell carcinoma, face Social History Tobacco Use Types Packs/Day Years Used Date Smoking Tobacco: Former Smokeless Tobacco: Never Sex and Gender Information Value Date Recorded Sex Assigned at Not on file Gender Identity Not on file Sexual Orientation Not on file documented as of this encounter Progress Notes * Luis E Woo MD - 08/19/2023 10:40 AM EDT Images from the original note were not included. DEPARTMENT OF DERMATOLOGY Medical Dermatology Clinic Provider: Luis E Woo MD Patient's preferred name Anup Preferred contact [...] y.o. Patient returns to clinic today for lesion and AK. The patient reports the following: - Patient has a spot on the upper lip, a spot on the right lower leg, and a spot on both flanks. 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 Last visit at Dermatology: 03/03/2022 Last visit with this provider: Visit date not found Medications: Reviewed in eD-H Allergies: Reviewed in eD-H Skin Examination: Focused skin examination of the face, trunk, and extremities was normal with the exception of the findings below. Assessment/Plan #. Biopsy-Proven SCCis, left flank - biopsy-scar with residual erythematous scaly plaque on the left flank - Biopsy-proven by PCP (see last page of External Office notes from 07/22/23) - Will plan for next available ED&C A. Favor SCC - 1 cm x 1cm ill-defined erythematous keratotic and crusted plaque on the right upper cutaneous lip (Figure 1). - Recommended a skin biopsy to confirm/clarify the nature of the skin lesion. After discussion of potential risks (scarring, bleeding, infection) and recurrence, patient agreed to proceed. - Patient denies known allergies to lidocaine and epinephrine. Procedure: Skin shave biopsy Location: Right Upper Cutaneous Lip Time of procedure: 11:05 AM Discussed indications for procedure and expectations including risks and benefits. Verbal consent obtained. Time out performed. Skin prepped with alcohol. Local anesthesia with 1% xylocaine, 1/100,000 epinephrine. A sample of the lesion was removed by shave technique to the level of the dermis and s ubmitted to Pathology. Hemostasis obtained. There were no complications; patient tolerated the procedure well. Wound dressed. Post-procedure expectations, wound care and activity restrictions reviewed. - Follow-up based on pathology results. B. Favor SCC - 1.4 cm x 1 cm red scaly plaque on the right flank (Figure 2). - Recommended a skin biopsy to confirm/clarify the nature of the skin lesion. After discussion of potential risks (scarring, bleeding, infection) and recurrence, patient agreed to proceed. - Patient denies known allergies to lidocaine and epinephrine. Procedure: Skin shave biopsy Location: Right Flank Time of procedure: 11:15 AM Discussed indications for procedure and expectations including risks and benefits. Verbal consent obtained. Time out performed. Skin prepped with alcohol. Local anesthesia with 1% xylocaine, 1/100,000 epinephrine. A sample of the lesion was removed by shave technique to the level of the dermis and s ubmitted to Pathology. Hemostasis obtained. There were no complications; patient tolerated the procedure well. Wound dressed. Post-procedure expectations, wound care and activity restrictions reviewed. - Follow-up based on pathology results. #. Actinic Keratoses - Ill-defined gritty papules on the right dorsal hand x1, left dorsal hand x1,left forearm x1, central upper back x1, right padilla x 2 - Explained premalignant potential of these lesions. - Discussed treatment with cryotherapy to thickest and most bothersome actinic keratoses. Patient elects to proceed with cryotherapy today. - Instructed patient to return to clinic for re-evaluation if lesion(s) does not resolve as expected with this treatment. - Patient will need close follow up for further evaluation and treatment of actinic damage/actinic keratoses Procedure: Destruction of lesion(s) with cryotherapy (LN2). Location(s): As noted above. Number: 6 Discussed procedure and expectations, including risks and benefits. Verbal consent obtained. Treated with LN2. Let thaw 15-30 seconds and refrozen. There were no complications; Patient tolerated the procedure well. Post-procedure expectations and wound care reviewed. RTC: Pending Pathology (will attempt to coordinate procedures); next available for FBSE []Note routed to hospital secretary []Recall placed in scheduling system [x]Appointment scheduled at checkout Scribe attestation: Pauline Cervantes [facility] has performed the documentation for this encounter in the presence of and acting as a scribe for Luis E Woo MD. I performed the above scribed service and agree with the accuracy of the documentation in this encounter. Reviewed and signed by: Luis E Woo MD [facility] Patient seen and evaluated with staff sheet mill supervisor: Danny Overton MD [facility] * Danny Overton MD - 08/19/2023 10:40 AM EDT I directly supervised the Dermatology resident during this office visit. The resident presented thehistory and physical exam to me. I then saw and examined this patient with the resident. We reviewed the history and pertinent details and I confirmed the physical findings. I agree with the details of the history and physical exam as documented in the resident's note. 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 Joint decision to pursue ED&C to SCCis on the right flank and Mohs surgery to the atypical squamous proliferation suspicious for at least SCCis on the right upper cutaneous lip. Messaged hospital secretary to schedule follow up appointment for ED&C. Referral to Mohs placed. documented in this encounter Miscellaneous Notes * Addendum Note - Luis E Woo MD - 08/19/2023 10:40 AM EDTAddended by: LUIS E WOO on: 09/04/2023 12:28 PM Modules accepted: Orders documented in this encounter Plan of Treatment Scheduled Referrals Name Type Priority Associated Diagnoses Order Schedule Referral to Dermatology Outpatient Referral Routine Squamous cell carcinoma, face Ordered: 09/04/2023 documented as of this encounter Procedures Procedure Name Priority Date/Time Associated Diagnosis Comments SURGICAL PATHOLOGY REPORT Routine 08/19/2023 12:10 PM EDT SPECIMEN TO PATHOLOGY Routine 08/19/2023 12:10 PM EDT Neoplasm of unspecified behavior of bone, soft tissue, and skin SPECIMEN TO PATHOLOGY Routine 08/19/2023 12:10 PM EDT Neoplasm of unspecified behavior of bone, soft tissue, and skin documented in this encounter Results * (ABNORMAL) Surgical Pathology Report (08/19/2023 12:10 PM EDT) Final Diagnosis [id number] ? Location: [facility] The signing pathologist has (i) examined the relevant preparation(s) for the specimen(s) and (ii) rendered or confirmed the diagnosis(es). . 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 of Pathology, [place] [address] Tree Feller: Tommy Leonard MD, [facility], ??CLIA Certificate: [id number] DISCUSSION THIS RESULT REQUIRES PHYSICIAN/A.P.P. FOLLOW UP SPECIMEN(S) SUBMITTED A - right upper cutaneous lip, skin shave biopsy (2) B - right flank, skin shave biopsy (1) CLINICAL INFORMATION A - Favor SCC-1 cm x 1 cm ill-defined erythematous keratotic and crusted plaque on the right upper cutaneous lip B - Favor SCC-1.4 cm x 1 cm red scaly plaque on the right flank SPECIMEN PROCESSING A - Labeled/Fixative : A-right upper cutaneous lip, formalin. Quantity/Size: ??Two, 0.5 x 0.3 x 0.2 and 0.8 x 0.5 x 0.2 cm. Tissue Description: Fragmented shave of a slater-pink, friable skin plaque. Sections/Process ing: Entirely submitted in 2 cassettes as follows: ?A1: ??Single tissue, inked and bisected ?A2: ??Single fragment, submitted in toto B - Labeled/Fixative : B-right flank, formalin. Quantity/Size: ??Single, 1.0 x 0.6 x 0.3 cm. Tissue Description: Shave of a pink papule. Sections/Process ing: Inked, trisected and entirely submitted in 1 cassette labeled B1. ??jnr(A) 08/31/2023 7:26 PM EDT [facility] SPECIMEN FROM SKIN / Unknown 08/19/2023 12:10 PM EDT 08/19/2023 12:10 PM EDT SPECIMEN FROM SKIN / Unknown 08/19/2023 12:10 PM EDT 08/19/2023 12:10 PM EDT Luis E Woo MD PATHOLOGY/CYTOLOGY O RDERABLES Performing Organization Address [facility] Co de Phone Number [facility] [place] [place] [address] * Specimen to Pathology (08/19/2023 12:10 PM EDT) AP Specimen 08/19/2023 12:1 0 PM EDT 08/19/2023 12:10 PM EDT Narrative [facility] - 08/19/2023 12:10 PM EDT Specimen requisition ordered. ??Separate Pathology report to follow Danny Overton MD PATHOLOGY/CYTOLOGY ORDERABLES Performing Organization Address [facility] Co de Phone Number [facility] [place] [address] * Specimen to Pathology (08/19/2023 12:10 PM EDT) AP Specimen 08/19/2023 12:1 0 PM EDT 08/19/2023 12:10 PM EDT Narrative [facility] - 08/19/2023 12:10 PM EDT Specimen requisition ordered. ??Separate Pathology report to follow Danny Overton MD PATHOLOGY/CYTOLOGY ORDERABLES [facility] [place] [address] documented in this encounter Visit Diagnoses Diagnosis Neoplasm of unspecified behavior of bone, soft tissue, and skin AK (actinic keratosis) Actinic keratosis Squamous cell carcinoma in situ Carcinoma in situ, site unspecified Squamous cell carcinoma, face Squamous cell carcinoma of skin of other and unspecified parts of face documented in this encounter Care Teams Workers' Compensation Claims Examiner Relationship Specialty Start Date End Date Henry Lehman MD [address] [place] [phone] PCP - General General Internal Medicine 08/19/23 documented as of this encounter
--- OUTSIDE RECORDS SUMMARY | 2024-04-05 13:12 | XMS_ITS | Encounter Summary ---
Author Organization [facility] Address [facility] [place] [address] Care Team Providers Care Glove Cleaner Name Role Phone Henry Lehman MD Primary Care Provider [phone] Encounter Details Date Type Department Care Team (Late st Contact Info) Description 09/07/2023 Telephone Dermatology at [facility] [address] [place] [address] Pan Bailon CMA Social History Tobacco Use Types Packs/Day Years Used Date Smoking Tobacco: Former Smokeless Tobacco: Never Sex and Gender Information Value Date Recorded Sex Assigned at Not on file Gender Identity Not on file Sexual Orientation Not on file documented as of this encounter Miscellaneous Notes * Telephone Encounter - Pan Bailon CMA - 09/07/2023 2:42 PM EDT Mohs consultation and preoperative note (H&P) Patient Name: Anup Stanton Age: 88 y.o. Date of : 1935 Today's Date: 09/07/2023 REFERRING PROVIDER: No ref. provider found CC: Mohs micrographic surgery for treatment of [...] you ever had Mohs surgery with Dr. Davenport? no Pacemaker/Defibrillator? no Joint replacement or other [...] on filedocumented in this encounter Care Teams Glove Cleaner Relationship Specialty Start Date End Date Henry Lehman MD [address] [place] [phone] PCP - General General Internal Medicine 08/19/23 documented as of this encounter
--- OUTSIDE RECORDS SUMMARY | 2024-04-05 13:12 | XMS_ITS | Encounter Summary ---
Author Organization [facility] Address [facility] [place] [address] Care Team Providers Care Nickel Plater Name Role Phone Lexie Brown MD Primary Care Provider [phone] Encounter Details Date Type Department Care Team (Latest Contact Info) Description 03/03/2022 10:30 AM EDT Procedure visit Dermatology at [facility] [address] [place] [address] Jackie Lord MD [facility] [place] [address] Basal cell carcinoma (BCC), unspecified site Social History Tobacco Use Types Packs/Day Years Used Date Smoking Tobacco: Former Smokeless Tobacco: Never Sex and Gender Information Value Date Recorded Sex Assigned at Not on file Gender Identity Not on file Sexual Orientation Not on file documented as of this encounter Patient Instructions * Patient Instructions* Viviana Ray RN - 03/03/2022 10:30 AM EDT Post-Operative Instructions Wound care: The bandage applied today should remain dry and intact for approximately 48 hours. When it is time to remove the bandage, wash your hands, wet the area, and gently remove the dressing. Afterward perform the following daily wound care: Clean the wound with mild soap and warm water, and gently pat dry. Apply Vaseline, Aquaphor or another brand of plain petroleum jelly. Do NOT use peroxide or antibiotic ointment/cream (Neosporin or Bacitracin) on the wound. Cover the wound with a new bandage, such as non-stick Telfa pad and paper tape, or a Band-Aid. Repeat this regimen every day until your sutures are removed. A small amount of yellow drainage is part of the normal healing process. The wound is not considered healed until the drainage stops. It may take up to 3-4 weeks depending on the surgical site. Signsof infection include: increasing redness, drainage, swelling, tenderness, or pain. If you notice any of those symptoms, please contact the clinic. For bleeding or discomfort: If bleeding should occur, hold firm, constant pressure against the wound for 15- 20 minutes (with nopeeking). If bleeding continues, repeat for another 15-20 minutes. If that does not stop the bleeding, call the clinic or go to your local emergency department. For discomfort, you may take acetaminophen (Tylenol), according to package directions. For the first 48 hours, avoid aspirin and ibuprofen (Advil, Motrin), as they increase the risk of bleeding. After 48 hours, it is okay to switch to aspirin or ibuprofen as needed. Activity restrictions: It is important that you avoid strenuous and/or vigorous activities, heavy lifting (more than 5-10 pounds, the equivalent of 1 gallon of milk) and bending for a period of 3 weeks. Suture removal: The sutures should be removed in 12-14 days. Contact information: After 5 PM, and on weekends and holidays, please call the hospital at [phone] and ask for the [employer] On-Call. Provider: Jackie Lord MD Hand Stone Polisher: Viviana Ray LPN documented in this encounter Progress Notes * Jackie Lord MD - 03/03/2022 10:30 AM EDT Dermatologic Surgery Operative Report (Procedure: excision with intermediate layered closure) Patient Name: Anup Stanton Date of : 1935 Visit date: 02/27/2022 STAFF SURGEON: Jackie Lord MD, TYLER PEARL RESTORER SURGEON: Dr. Maxim Funk PEARL RESTORER: Viviana Ray LPN Preoperative diagnosis: Basal cell carcinoma, nodular and infiltrating patterns Postoperative diagnosis: Same as above Pathology: Submitted for permanent pathology. Pending. Lesion site (location): upper right chest Pre-operative size (cm): 1.8 cm x 0.8 cm Circumferential margins obtained: 0.5 cm Final defect size or total excision diameter (the lesion plus margins): 2.8 cm x 1.8 cm Final length of closure: 5.5 cm Total anesthesia volume used for today: 10 cc INDICATION Removal. PROCEDURE Excision with intermediate layered closure. PREOPERATIVE MEDICATION: [x] None Prior to the procedure, final verification of the patient identity and correct marked surgical sitewas performed. Timeout was performed. Anesthesia used was 2% lidocaine with 1:100,000 epinephrine. The skin was prepped in a sterile fashion with with 2% chlorhexidine. The lesion was excised with clinically tumor-free margins in a fusiform fashion through the skin and through the subcutaneous tissue. The wound edges were trimmed as needed, and hemostasis was obtained with electrocoagulation. Due to wound size, the wound edges were closed in a layered fashion with 3-0 monocryl subcutaneous sutures and 4-0 prolene skin sutures. Estimated blood loss: Minimal. Complications: none. Wound care: routine. Specimen sent to Dermatopathology. Pathology report is pending. Suture removal in 14 days. POST-OPERATIVE MEDICATIONS: [x] NONE Jackie Lord MD, TYLER Department of Dermatology [facility] * Jackie Lord MD - 03/03/2022 10:30 AM EDT Skin excision pathology results reviewed. Margins negative. No further tx needed. Patient letter sent. [id number] ? Location: [facility] The signing pathologist has (i) examined the relevant preparation(s) for the specimen(s) and (ii) rendered or confirmed the diagnosis(es). ? Surgical Pathology DIAGNOSIS Upper right chest, skin excision: - Residual ??basal cell carcinoma; the examined inked margins are negative - ??Reparative changes consistent with previous operative site documented in this encounter Plan of Treatment Not on file documented as of this encounter Procedures Procedure Name Priority Date/Time Associated Diagnosis Comments SURGICAL PATHOLOGY REPORT Routine 03/03/2022 11:10 AM EDT SPECIMEN TO PATHOLOGY Routine 03/03/2022 11:10 AM EDT Basal cell carcinoma (BCC), unspecified site documented in this encounter Results * Surgical Pathology Report (03/03/2022 11:10 AM EDT) Final Diagnosis [id number] ? Location: [facility] The signing pathologist has (i) examined the relevant preparation(s) for the specimen(s) and (ii) rendered or confirmed the diagnosis(es). . ?Surgical Pathology DIAGNOSIS Upper right chest, skin excision: - Residual ??basal cell carcinoma; the examined inked margins are negative - ??Reparative changes consistent with previous operative site Electronically signed by: ?Yumi Burgos MD Verified: ??03/12/2022 17:09 ??Dermatopatholo gist Performed at: ??-[facility] [place] [place], [place], [place] SPECIMEN(S) SUBMITTED A - upper right chest, skin excision (1) CLINICAL INFORMATION BCC-1.8 cm by 0.8 cm healing previous biopsy site on upper right chest. [id number] SPECIMEN PROCESSING A - Labeled/Fixative : Patient demographics, formalin. Quantity/Size: ??Single, 5.4 x 2.0 cm, excised to a depth of 0.6 cm. Tissue Description: Non-oriented ellipse of slater-pink skin with a 1.3 x 0.7 cm pink biopsy scar Sections/Process ing: Inked and entirely submitted in 7 cassettes as follows: ?A1: ??tips ?A2-A7: ??Body, sequentially submitted ??ajw 03/12/2022 5:09 PM EDT [facility] SPECIMEN FROM SKIN / Unknown 03/03/2022 11:10 AM EDT 03/03/2022 11:10 AM EDT Jackie Lord MD PATHOLOGY/CYTOLOGY O BOBBI Performing Organization Address City/[facility]/ZIP Co de Phone Number [facility] [place] [address] * Specimen to Pathology (03/03/2022 11:10 AM EDT) AP Specimen 03/03/2022 11:1 0 AM EDT 03/03/2022 11:10 AM EDT Narrative [facility] - 03/03/2022 11:10 AM EDT Specimen requisition ordered. ??Separate Pathology report to follow Jackie Lord MD PATHOLOGY/CYTOLOGY O BOBBI [facility] [place] [address] documented in this encounter Visit Diagnoses Diagnosis Basal cell carcinoma (BCC), unspecified site documented in this encounter Care Teams Nickel Plater Relationship Specialty Start Date End Date Lexie Brown MD PCP - General 04/15/10 08/17/23 documented as of this encounter
--- OUTSIDE RECORDS SUMMARY | 2024-04-05 13:12 | XMS_ITS | Continuity of Care Document ---
Author Organization [facility] Address [address] [place] [address] Care Team Providers Care Ecommerce Marketing Manager Name Role Phone Henry Baez Primary Care Physician Encounter [facility] Date(s): 07/22/23 - 07/22/23 [facility] [address] [place] [address] Discharge Disposition: Home or Self Care Attending Physician: Henry Baez MD Admitting Physician: Henry Baez MD Referring Physician: Henry Baez MD Allergies, Adverse Reactions, Alerts No Known Medication Allergies Assessment and Plan Future Appointments Immunizations Given and Recorded Vaccine Date Status [...] team information Care Team Personnel Name: [facility] Position: No Access Member Role: Primary Care Physician Address: Address: [facility] [address] [place], [place] [address] Name: [facility] Position: Physician Member Role: Informed Provider Address: Address: [address] [place] [address] Care Team Related Persons Name: MIRYEA BAY Address: Home [address] [place] [address], [phone]
--- OUTSIDE RECORDS SUMMARY | 2024-04-05 13:12 | XMS_ITS | Clinical Summary ---
Author Organization [facility] Address [address] [place] [address] Care Team Providers Care Scientific Affairs Manager Name Role Phone Henry Lehman MD Primary Care Provider [phone] Allergies Active Allergy Reactions Criticality Noted Date Comments Lisinopril Medications atorvastatin (LIPITOR) 20 mg tablet Take 1 Tablet by mouth daily. Active NIFEdipine XL (PROCARDIA-XL) 60 mg tablet Take 1 Tablet by mouth daily. Active citalopram (CELEXA) 20 mg tablet Take 1 Tablet by mouth daily. Active losartan (COZAAR) 100 mg tablet Take 100 mg by mouth daily. Active hydroCHLOROthia zide (HYDRODIURIL) 25 mg tablet Take 1 Tablet by mouth daily. Active TAMSulosin (FLOMAX) 0.4 mg capsule Take 1 Capsule by mouth daily. Active Active Problems Patient Care Coordination No te Formatting of this note migh t be different from the original. Patient has given permission for [facility] to verbally discuss the following information with Lan Stanton who has the following relationship to the patient: Son/Daughter: Scheduling/Appt/Billing/Payment Information (does not include clinical information unless specifically indicated with separate option) Medical Information including symptoms, diagnosis, medications, test results and treatment plan (does not include Mental Health unless specifically indicated with separate option) Mental Health (Behavioral,Psychiatric,Chemical Dependency) health information, including my symptoms, diagnosis, medications and treatment plan Permission remains in effect until the patient elects to revoke it. Patient has given permission for [facility] to verbally discuss the following information with Krystyna Stanton who has the following relationship to the patient: Granddaughter : Scheduling/Appt/Billing/Payment Information (does not include clinical information unless specifically indicated with separate option) Medical Information including symptoms, diagnosis, medications, test results and treatment plan (does not include Mental Health unless specifically indicated with separate option) Permission remains in effect until the patient elects to revoke it. Patient has given permission for [facility] to verbally discuss the following information with Rochelle Brandiesheryl who has the following relationship to the patient: Daughter-in -Law : Scheduling/Appt/Billing/Payment Information (does not include clinical information unless specifically indicated with separate option) Medical Information including symptoms, diagnosis, medications, test results and treatment plan (does not include Mental Health unless specifically indicated with separate option) Permission remains in effect until the patient elects to revoke it. 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 No medication changes Encounters Date Type Department Care Team Description 04/04/2024 9:15 EST Office Visit [facility] Ophthalmology - [address] [address] Henry Mercado MD Arrived 03/15/2024 Lab Requisition [facility] Pathology & Laboratory Medicine [address] [address] Scott Garcia [place] Neoplasm of unspecified behavior of bone, soft tissue, and skin 03/02/2024 8:00 EDT Office Visit [address] [address] Henry Mercado MD from Last 3 Months Social History Tobacco Use Types Packs/Day Years Used Date Smoking Tobacco: Former Smokeless Tobacco: Never Interpersonal Safety Answer Date Record ed Physically Hurt Never 12/25/2019 Verbally Threaten Not on file 12/25/2019 Sex and Gender Information Value Date Recorded Sex Assigned at Not on file Legal Sex Male 16:26 EST Gender Identity Not on file Sexual Orientation Not on file Obstetrics History Last Filed Vital Signs Vital Sign Reading Time Taken Comments Blood Pressure 118/59 10/29/2022 1026 EDT Pulse 50 10/29/2022 1026 EDT Temperature - - Respiratory Rate - - Oxygen Saturation - - Inhaled Oxygen Concentration - - Weight 78 kg (172 lb) 10/29/2022 1026 EDT Height 167 cm (5' 5.75) 10/29/2022 1026 EDT Body Mass Index 27.97 10/29/2022 1026 EDT Plan of Treatment Upcoming Encounters Date Type Department Care Team (Late st Contact Info) Description 05/02/2024 9:30 EST Office Visit [address] [id number] Henry Mercado MD [address] [place] [phone] 06/13/2024 9:30 EST Office Visit [address] [address] Henry Mercado MD [address] [place] [phone] Health Maintenance Due Date Last Done Comments Fall Risk Screening 2002 RSV Immunization ( o r 60+ Years) (1 - 1-dose 75+ series) 01/11/2012 COVID-19 Vaccine Completed 02/23/2024, , 03/11/2022, Additional history exists Procedures Procedure Name Priority Date/Time Associated Diagnosis Comments INTRAVITREAL INJECTION, PHARMACOLOGIC AGENT - OD - RIGHT EYE Routine 04/04/2024 10:09 EST Exudative age-related macular degeneration of right eye with active choroidal neovascularization (HCC-CMS) OCT, RETINA - OU - BOTH EYES Routine 04/04/2024 9:47 EST Exudative age-related macular degeneration of right eye with active choroidal neovascularization (HCC-CMS) Intermediate stage nonexudative age-related macular degeneration of left eye SURGICAL PATHOLOGY Today 03/14/2024 13 :30 EDT Neoplasm of unspecified behavior of bone, soft tissue, and skin OCT, RETINA - OU - BOTH EYES Routine 03/02/2024 9:07 EDT Exudative age-related macular degeneration of right eye with active choroidal neovascularization (HCC-CMS) Intermediate stage nonexudative age-related macular degeneration of left eye INTRAVITREAL INJECTION, PHARMACOLOGIC AGENT - OD - RIGHT EYE Routine 03/02/2024 9:05 EDT Exudative age-related macular degeneration of right eye with active choroidal neovascularization (HCC-CMS) from Last 3 Months Results * INTRAVITREAL INJECTION, PHARMACOLOGIC AGENT - OD - RIGHT EYE (04/04/2024 10:09 EST) Narrative [facility]INT [facility] - 04/04/2024 10:54 EST Time Out 04/04/2024. 10:09. Confirmed correct patient, procedure, site, and patient consented. Anesthesia Topical anesthesia was used. Anesthetic medications included Proparacaine 0.5%, Tetracaine 0.5%. Procedure Preparation included 5% betadine to ocular surface, eyelid speculum. A 30 gauge needle was used. Injection: 1.25 mg bevacizumab ??Route: intravitreal, Site: Right Eye ??[facility]: [id number], Lot: [id number], Expiration date: 04/09/2024 Post-op Post injection exam found visual acuity of at least counting fingers. The patient tolerated the procedure well. There were no complications. The patient received written and verbal post procedure care education. Post injection medications were not given. Henry Mercado MD OPHTH CLINIC PROCEDURES Final Re sult Performing Organization Address City/[facility]/ZIP Co de Phone Number [facility] POINT OF CARE * OCT, RETINA - OU - BOTH EYES (04/04/2024 9:47 EST) Narrative [facility] OPHTHALMOLOGY - 04/04/2024 10:53 EST Right Eye Quality was good. Scan locations included extrafoveal. Progression has improved. Findings include pigment epithelial detachment, subretinal fluid. Left Eye Progression has been stable. Notes Stable PP PED with resolution of subretinal fluid far from fovea right eye Drusen, outer retinal atrophy, left eye Henry Mercado MD OPHTH TOMOGRAPHY Final Result Performing Organization Address [facility] Co de Phone Number [facility] OPHTHALMOLOGY * SURGICAL PATHOLOGY (03/14/2024 13:30 EDT) Note to Patient The following pathology results have been interpreted by your pathologist and may be available to you before your health provider has had the opportunity to review them. Please allow time for your provider to receive these results and explore management options, if applicable. 03/16/2024 15:53 [facility] Final Diagnosis A. SKIN OF ABDOMEN, RIGHT, SHAVE BIOPSY: - Dermal scar. See comment. B. SKIN OF FOREARM, LEFT, SHAVE BIOPSY: - Hypertrophic actinic keratosis. - Lesion extends to biopsy edge and base. C. SKIN OF PRE-AURICULAR REGION, LEFT, SHAVE BIOPSY: - Squamous cell carcinoma, moderately differentiated, invasive. - Lesion extends to biopsy base. 03/16/2024 15:53 [facility] Diagnosis Comment In specimen A, the etiology the scar is uncertain. 03/16/2024 15:53 [facility] Attestation By the signature below, the attending physician certifies that they have 1) personally conducted a gross and/or microscopic examination of the described specimen(s), and/or personally interpreted the results of laboratory testing of the described specimen(s), and 2) personally rendered or confirmed the above diagnosis. 03/16/2024 15:53 [facility] at 1553 Clinical History Abnormal skin growth; clinical diagnosis code: D49.2 03/16/2024 15:53 [facility] Gross Description A. Received in formalin labelled with proper patient identification (initials F, B) and right abdomen is a shave biopsy of slater skin (1.0 x 0.7 x 0.1 cm). The margin is inked blue. The specimen is trisected and entirely submitted in A1. B. Received in formalin labelled with proper patient identification (initials F, B) and left forearm is a shave biopsy of a slater-sky keratotic and flaking peripherally brown papule (1.1 x 1.0 x 0.25 cm). The margin is inked blue. The specimen is trisected and entirely submitted in B1. C. Received in formalin labelled with proper patient identification (initials F, B) and left preauricular is a shave biopsy of pale-slater and brown speckled roughened skin (1.0 x 0.6 x 0.1 cm). The margin is inked blue. The specimen is bisected and entirely submitted in C1. [place] Dayday 03/16/2024 7:26 03/16/2024 15:53 [facility] Performing Lab [facility] 03/16/2024 15:53 [facility] Scanned Images 03/16/2024 15:53 [facility] Tissue SPECIMEN FROM SKIN / Unknown 03/14/2024 13:30 EDT 03/15/2024 20:47 EDT Tissue specimen (specimen) SPECIMEN FROM SKIN / Unknown 03/14/2024 13:30 EDT 03/15/2024 20:47 EDT Tissue specimen (specimen) SPECIMEN FROM SKIN / Unknown 03/14/2024 13:30 EDT 03/15/2024 20:47 EDT Scott ETIENNE PATHOLOGY ORDERABLES Final Result [facility] [address] [place] [address] * OCT, RETINA - OU - BOTH EYES (03/02/2024 9:07 EDT) Narrative [facility] OPHTHALMOLOGY - 03/02/2024 13:36 EDT Right Eye Quality was good. Scan locations included extrafoveal. Progression has no prior data. Findings include pigment epithelial detachment, subretinal fluid. Left Eye Progression has no prior data. 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 Co de Phone Number [facility] OPHTHALMOLOGY * INTRAVITREAL INJECTION, PHARMACOLOGIC AGENT - OD - RIGHT EYE (03/02/2024 9:05 EDT) Narrative [facility] - 03/02/2024 13:36 EDT Time Out 03/02/2024. 8:58. Confirmed correct patient, procedure, site, and patient consented. Anesthesia Topical anesthesia was used. Anesthetic medications included Proparacaine 0.5%, Tetracaine 0.5%. Procedure Preparation included 5% betadine to ocular surface, eyelid speculum. A 30 gauge needle was used. Injection: 1.25 mg bevacizumab ??Route: intravitreal, Site: Right Eye ??[facility] [place]: [id number], Lot: [id number], Expiration date: 03/03/2024 Post-op Post injection exam found visual acuity of at least counting fingers. The patient tolerated the procedure well. There were no complications. Post injection medications were not given. Henry Mercado MD OPHTH CLINIC PROCEDURES Final Re sult Performing Organization Address [facility]/ZIP Co de Phone Number [facility] POINT OF CARE from Last 3 Months Insurance [employer] Care Teams Scientific Affairs Manager Relationship Specialty Start Date End Date Henry Lehman MD [address] [place] [address] PCP - General 11/22/18
--- OUTSIDE RECORDS SUMMARY | 2024-04-05 13:12 | XMS_ITS | Data Portability ---
Author Organization MD - [facility] Address [address] [place] [address] Care Team Providers Care Mergers And Acquisitions Associate Name Role Phone JEFERSON STEPHEN Primary Care Provider Assessment Encounter Date Assessment Date Assessment LastModified by Organization Details LastModified Time 04/05/2024 04/05/2024 Already has vaccines. He needs help selecting a new insurance plan. Not available 04/05/2024 12:29:47 Plan of Treatment Reminders Order Date Submit Date Provider Last Modified By Organization Details Last Modified Time Details Appointments Follow Up 2023 11:00A M JEFERSON STEPHEN Not available Not available Not available Annual Wellness Exam 30 2024 10:00A M JEFERSON STEPHEN Not available Not available Not available Lab influenza virus A + B + SARS-CoV- 2 (COVID19) Ag panel, rapid IA, upper respirato ry specimen [address] [facility] [place], [address] [place] [address], [address], 01/05/2024 09:52:37 PSA, total, serum or plasma 2023 024 [email or web address] [facility] (Registration ), [address] [place] [address] [place], [address], 04/05/2024 12:31:09 BMP, serum or plasma 2023 024 [email or web address] [facility] (Registration ), [address] [place] [address] [place], [address], 04/05/2024 12:31:09 Referral plastic surgeon referral - Very active vigorous 89 yo non-smoke r has 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 1.5 x 1 cm. Pt has a long hx of prior actinic damage and skin cancers. Hx of controlle d hypertens ion. No anticoagu lation. Mild cognitive impairmen t but very able to make risk benefit judgement . Primarily Sammarinese speaking. Evaluate and manage as indicated . 2023 024 [email or web address] [facility], [address], [place], [address], 03/30/2024 09:48:45 Procedures cerumen removal (PROC) 2023 024 [email or web address] [facility] (Registration ), [address] [place] [address] , [place], [address], 01/18/2024 10:06:06 Surgeries None recorded. Imaging None recorded. Medication Orders doxycycli ne hyclate 100 mg capsule 2023 024 [email or web address] [facility], [address] , [place], [place], [id number], 01/17/2024 14:28:41 losartan 25 mg tablet 2023 024 [id number], [address], [place], [address], 04/05/2024 11:30:09 Patient TargetsNo targets recorded. Patient Instructions Encounter Date Encounter Id Patient Instructions Last Modified By Organization Details Last Modified Time 01/05/2024 [id number] Push fluids, herbal tea, start the antibiotic today, if no improvement please return to the office [email or web address] Not available 01/05/2024 09:21:59 02/28/2024 [id number] We are referring you to Dr. Aguirre in [facility] to have that skin lesion removed. Please reach out to our office if you do not hear from their office. Please measure your blood pressure daily for the next two weeks and report those readings. [email or web address] Not available 02/28/2024 11:01:45 04/05/2024 [id number] 1. BP is too hig h , we are resuming a small dose of losartan 25 mg daily. You were on a much higher dose last year ( 100 mg ) and we stopped that when your BP was too low. 2. Your surgery in [place] for skin cancer is being done by an research and evaluation analyst because it is so close to the ear. 3. [place] [facility] [place] - next time is scheduled in August 2024. 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 1.5 x 1 cm. Pt has a long hx of prior actinic damage and skin cancers. Hx of controlled hypertension. No anticoagulation. Mild cognitive impairment but very able to make risk benefit judgement. Primarily Sammarinese speaking. Evaluate and manage as indicated. Referring Physician: Jeferson Stephen, Internal Medicine, Encounter Date: 02/28/2024 Results Created Date Observation Date Name Description Value Unit Range Abnormal Flag Note LastModifiedBy Organization Detail LastModifiedTime 01/05/20 24 01/05/2024 influ ekta virus A + B + SARS- CoV-2 (COVI D19) Ag panel , rapid IA, upper respi rator y speci men Influenza A negati ve Not Available [address], [address], 01/05/2024 09:25:05 01/05/20 24 01/05/2024 influ ekta virus A + B + SARS- CoV-2 (COVI D19) Ag panel , rapid IA, upper respi rator y speci men Influenza B negati ve Not Available [address], [place], [address], 01/05/2024 09:25:05 01/05/20 24 01/05/2024 influ ekta virus A + B + SARS- CoV-2 (COVI D19) Ag panel , rapid IA, upper respi rator y speci men SARS-COV-2 negati ve Not Available [facility] [place] [address] [facility] [address], [place], [address], 01/05/2024 09:25:05 02/07/20 24 06/24/2021 US, bladd er No observ ation record ed. Not Available 02/06 19:29:51 02/07/20 24 12/01/2020 imagi ng/di agnos tic resul t No observ ation record ed. Not Available 02/06 19:29:52 02/07/20 24 07/30/2021 imagi ng/di agnos tic resul t No observ ation record ed. Not Available 02/06 19:30:13 02/07/20 24 03/04/2023 XR, chest No observ ation record ed. Not Available 02/06 19:30:17 Result Notes None recorded. Problems Name Problem SNOMED Code Status Onset Date Resolution Date Notes Provider Name and Address Organization Details Recorded Time Actinic keratosi s Active [address], [place], [address] , [facility] 4 12:30:22 [facility] hyperten andres 64339463 Active 200701/17/20 22 - Comments only - Jeferson Stephen MD - Fair control is appropri ate for age. Problem Code: I10; Problem Code Type: ICD-10; Not Available [facility] 4 21:55:27 Anxiety disorder 122638612 Active 2007 Problem Code: F41.9; Problem Code Type: ICD-10; Not Available [facility] 4 21:55:26 Hyperlip idemia 83098777 Active 200706/06/19 19 - Comments only - Jeferson Stephen MD - He chooses to continue on the statin since he tolerate s it well. Problem Code: E78.5; Problem Code Type: ICD-10; Not Available [facility] 4 21:55:27 Inguinal hernia 410634552 Active 2008 Problem Code: K40.90; Problem Code Type: ICD-10; Not Available [facility] 4 21:55:27 Lipoma of skin and subcutan eous tissue 90589276030 105 Active 2009 Problem Code: D17.39; Problem Code Type: ICD-10; Not Available [facility] 4 21:55:27 Divertic ulitis of intestin e 086392633 Completed 201606/17/2016 Problem Code: K57.92; Problem Code Type: ICD-10; Not Available [facility] 3 05:25:47 Adult health examinat ion Active 201606/26/19 22 - Comments only - Jeferson Stephen MD - Tetanus booster Problem Code: Z00.00; Problem Code Type: ICD-10; Not Available [facility] 4 21:55:27 Disorder of right ear 76825322162 26881 Completed 201611/13/2016 Problem Code: H93.91; Problem Code Type: ICD-10; Not Available [facility] 3 05:25:48 Chronic kidney disease stage 3 587898450 Active 201701/12/20 23 - Comments only - Jeferson Stephen MD - Nephrolo gy recommen ded no other changes last year and did not feel the need to schedule follow-u p. I am rechecki ng his renal function now. He is reminded to limit salt. Not Available [facility] 4 21:55:27 Gastroes ophageal reflux disease without esophagi tis 014079319 Active 2017 Problem Code: K21.9; Problem Code Type: ICD-10; Not Available [facility] 4 21:55:26 Benign paroxysm al position al vertigo 579559378 Active 201709/29/19 18 - Improved - Ariana Barnes SUEDING AND BUFFING MACHINE OPERATOR - Patient has improved signific antly. He will continue physical therapy. He does have meclizin e at home if needed. If his symptoms start up again he will take meclizin e and do his prescrib ed physical therapy exercise s. If symptoms persist he will call the clinic. Needs to schedule an annual exam before he leaves today. The patient is in good understa nding and agreemen t with the plan of care. Problem Code: H81.10; Problem Code Type: ICD-10; Not Available [facility] 4 21:55:26 General examinat ion of patient Active 201709/30/19 18 - Comments only - Joaquim Plunkett PA-C - Due to hyperten andres given a one year card. Well controll ed. No current medical complain ts that limit him from driving a [employer] al vehicle. He did have recent episode of vertigo which has resolved . Problem Code: Z00.8; Problem Code Type: ICD-10; Not Available [facility] 4 21:55:26 Gout 91786338 Completed 201705/10/2018 11/09/19 18 - Comments only - Joaquim Plunkett PA-C - First episode of gout. Improvin g with anti-inf lammator ies and rest. Continue . Recheck if worse or changes. 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 No secondar y trauma. Recheck as needed. Problem Code: H74.8x1; Problem Code Type: ICD-10; Not Available [facility] 3 05:25:49 Gout 78269231 Completed 201805/07/2023 Problem Code: M10.9; Problem Code Type: ICD-10; MD [address], [place], [address] , [facility] 3 11:05:45 Urinary incontin ence 779881301 Active 201906/14/19 20 - Comments only - Jeferson Stephen MD - Anup is not having overflow incontin ence. Rather than start a drug, try to disconti nue his hydrochl orothiaz azalea which may help some. He is not eager to get active treatmen t. 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 No real benefit from starting donepezi l at this point. Problem Code: G31.84; Problem Code Type: ICD-10; Not Available [facility] 4 21:55:27 Increase d frequenc y of urinatio n 944167566 Completed 202106/18/2021 Problem Code: R35.0; Problem Code Type: ICD-10; Not Available [facility] 3 05:25:49 Family history of malignan t neoplasm of prostate 969852338 Active 2021 Problem Code: Z80.42; Problem Code Type: ICD-10; Not Available [facility] 4 21:55:27 Nicotine dependen ce 10502109 Completed 202105/07/2023 06/26/19 22 - Comments only - Jeferson Stephen MD - No symptoms to suggest chronic lung disease. He quit almost 30 years ago. Problem Code: Z87.891; Problem Code Type: ICD-10; MD [address], [place], [address] , [place] [facility] 3 11:02:22 Blood in urine 82637110 Completed 202105/07/2023 06/26/19 22 - Comments only - Jeferson Stephen MD - Clearly should have cystosco py. Ultrasou nd negative for renal or bladder mass or stone. Problem Code: R31.9; Problem Code Type: ICD-10; MD [address], [place], [address] , [facility] 3 11:05:53 Prostate specific antigen above referenc e range 606901649 Active 202101/12/20 23 - Comments only - Jeferson Stephen MD - He has a pretty clear understa nding of the cancer risk and the benefits of observat ion. Recheck PSA now. Problem Code: R97.20; Problem Code Type: ICD-10; Not Available [facility] 4 21:55:27 Cellulit is of left upper limb 39933800154 595229 Completed 202112/13/2021 Problem Code: L03.114; Problem Code Type: ICD-10; Not Available [facility] 3 05:25:50 Neoplasm of uncertai n behavior of skin 08319728 Completed 202112/13/2021 Problem Code: D48.5; Problem Code Type: ICD-10; Not Available [facility] 3 05:25:50 Urolithi asis 32404250 Active 2021 Problem Code: N20.9; Problem Code Type: ICD-10; Not Available [facility] 4 21:55:27 Basal cell carcinom a of skin 547807949 Completed 202105/07/2023 Problem Code: C44.91; Problem Code Type: ICD-10; MD [address], [place], [address] , [facility] 4 12:42:31 Cough 67115100 Completed 202107/16/2023 10/03/19 23 - Comments only - Lian ETIENNE - /Sore throat Negative rapid COVID/fl u/strep. Benign exam. Vitals stable except for temperat ure being elevated . Recommen ded Tylenol for fever manageme nt. Prescrip tion for Tessalon Perles 1 capsule 3 times a day as needed for cough. Discusse d supporti ve care. Follow-u p if not improvin g or worsenin g symptoms . Problem Code: R05.8; Problem Code Type: ICD-10; IESHA CHUTE, [facility]WE[employer] HARVESTER [address], [place], [address] , [facility] 4 09:17:09 Neoplasm of uncertai n behavior of skin 73990635 Completed 202210/03/2022 10/03/19 23 - Comments only - Lian ETIENNE - Concern for possible squamous cell carcinom a. Sending referral to [facility] general surgery Problem Code: D48.5; Problem Code Type: ICD-10; Not Available [facility] 3 05:25:51 Insomnia 867082995 Completed 202205/07/2023 Problem Code: G47.00; Problem Code Type: ICD-10; MD [address], [place], [address] , [facility] 3 11:02:44 Chest pain 10488189 Completed 200706/06/2018 Problem Code: R07.89; Problem Code Type: ICD-10; Not Available [facility] 3 05:25:55 Hyperten sive disorder 35863011 Completed 200702/17/2023 Not Available [facility] 3 05:25:57 Impacted cerumen of bilatera l ears 32629078760 51712 Completed 202107/15/2022 Problem Code: H61.23; Problem Code Type: ICD-10; Not Available [facility] 3 05:25:58 Dyspnea 847095382 Active 2014 PFT 06/2023 very slt obstruct ion, no response to broncodi lator. Neg CXR.Prob peng Code: R06.09; Problem Code Type: ICD-10; MD [address], [place], [address] , [facility] 4 10:56:58 Lipoma 92110632 Completed 200902/17/2023 Problem Code: 214.9; Problem Code Type: ICD-9; Not Available [facility] 3 05:26:00 Retentio n of urine 989347929 Completed 201906/15/2019 Problem Code: R33.9; Problem Code Type: ICD-10; Not Available [facility] 3 05:26:02 Atypical chest pain 162436222 Completed 200702/17/2023 Not Available [facility] 3 05:26:03 Removal of suture Completed 202107/15/2022 Problem Code: Z48.02; Problem Code Type: ICD-10; Not Available [facility] 3 05:26:05 Orthosta tic hypotens ion 60216541 Active 202203/03/20 23 - Comments only - Jeferson Stephen MD - I think the major issue here is that his blood pressure simply running too low, and he is old enough to have some fragilit y. I Karin stop his losartan complete ly. He understa nds we may have to resume at a lower dose. I do not think meclizin e will help and now in warned him that that could actually make the orthosta sis worse. We checked a hemoglob in which was normal so he has not had GI bleeding . There is nothing really to suggest coronary disease but at the if episodes do not stop promptly off the losartan going to do more cardiac work-up. He is given detailed instruct ions in Sammarinese. Problem Code: I95.1; Problem Code Type: ICD-10; Not Available [facility] 4 21:55:27 Pain of right knee joint 72365662739 4100 Active 2022 Problem Code: M25.561; Problem Code Type: ICD-10; Not Available [facility] 4 21:55:27 Hearing loss 93491597 Active 202203/22/20 23 - Comments only - Iesha Jarrett SUEDING AND BUFFING MACHINE OPERATOR - Note give out of jury duty Problem Code: H91.90; Problem Code Type: ICD-10; Not Available [facility] 4 21:55:26 Acute pharyngi tis 073045540 Completed 202203/03/2023 Problem Code: J02.9; Problem Code Type: ICD-10; Not Available [facility] 4 05:37:12 Hypoxemi a 175699719 Active [address], [place], [address] , [facility] 4 12:04:52 Squamous cell carcinom a of skin 050096172 Active [address], [facility] [address] , [facility] 4 12:44:18 Cellulit is of right upper limb 89751549662 036301 Completed 202311/03/[address], [place], [address] , [facility] 10:55:58 Cough 45255402 Active 202310/03/19 - Comments only - Lian Dugan PA - /Sore throat Negative rapid COVID/fl u/strep. Benign exam. Vitals stable except for temperat ure being elevated . Recommen ded Tylenol for fever manageme nt. Prescrip tion for Tessalon Perles 1 capsule 3 times a day as needed for cough. Discusse d supporti ve care. Follow-u p if not improvin g or worsenin g symptoms . Problem Code: R05.8; Problem Code Type: ICD-10; [address], [place], [address] , [facility] 09:17:09 Impacted cerumen in left ear 46345379739 16623 Active [address], [facility] [address] , [facility] 14:41:44 Notes:*Problem Name: Csope N eg 05/30 *ICD-10 Codes: *Problem Status: inactive *Comments: *Note Date: 03/29/2008 *Problem Name: Csope Neg 05/30 *ICD-10 Codes: *Problem Status: inactive *Comments: *Problem Code Type: CPT *Note Date: 03/29/2008 Some problems listed in Document: #[id number] could not be added to this patient's chart. Please review this document and add these problems to the patient's chart manually as needed. Problem Notes None recorded. Procedures Surgical History Date Name Laterality Status Provider Name and Address Organization Details Recorded Time 4 Cerumen Removal completed ELMA GARCIA PA-C [address], [place], [address], [facility] 12/20/2023 11:44:41 4 Suture/Stapl e removal completed Rylee Pinto RN [facility] 07/23/2023 11:33:22 4 Punch Biopsy completed JEFERSON STEPHEN MD [address], [place], [address], [facility] 07/16/2023 12:07:03 Imaging Results Imaging Date Name Status LastModified by Organiz ation Details LastModified Time 06/24/2021 US, bladder completed Information n ot available 02/07/2024 19:29:51 12/01/2020 imaging/diag nostic result completed Information not available 02/07/2024 19:29:52 07/30/2021 imaging/diag nostic result completed Information not available 02/07/2024 19:30:13 03/04/2023 XR, chest completed Information no t available 02/07/2024 19:30:17 Procedure Notes None recorded. Medical Equipment None Reported. Allergies No known drug allergies Medications Name Sig Start Date Stop Date Status Note LastModified by Organization Details LastModified Time doxycycli ne hyclate 100 mg capsule Take 1 capsule twice a day by oral route for 10 days. 01/16 completed pt reports not taking Not Available Not Available Not Available atorvasta tin 20 mg tablet TAKE ONE TABLET BY MOUTH EVERY DAY active Not Available Not Available No t Available nifedipin e ER 90 mg tablet,ex tended release Take 1 tablet by mouth once a day 03/30 completed Not Available Not Available Not Available prednison e 20 mg tablet 2 tablet by mouth once a day Take with food. 03/28 completed Not Available Not Available Not Available fluoroura cil 5 % topical cream APPLY TOPICALL Y EVERY DAY IN THE MORNING FOR 21 DAYS 12/19 completed Not Available Not Available Not Available Debrox 6.5 % ear drops INSTILL 5 DROPS INTO AFFECTED EAR(S) BY OTIC ROUTE 2 TIMES PER DAY x 4 days 04/05 completed Not Available Not Available Not Available atenolol 25 mg tablet Take 1 by mouth nightly 05/27 completed Not Available Not Available Not Available nifedipin e ER 30 mg tablet,ex tended release TAKE ONE TABLET BY MOUTH EVERY DAY, TAKE WITH 60 MG FOR TOTAL 90 MG DAILY active Not Available Not Available No t Available sulfameth oxazole 800 mg-trimet hoprim 160 mg tablet Take 1 tablet every 12 hours by oral route for 3 days, for cellulit is. 11/02 completed Not Available Not Available Not Available losartan 100 mg-hydroc hlorothia zide 25 mg tablet Take 1 by mouth daily. 03/16 completed Not Available Not Available Not Available citalopra m 20 mg tablet TAKE ONE TABLET BY MOUTH EVERY DAY active Not Available Not Available No t Available tamsulosi n 0.4 mg capsule TAKE TWO CAPSULES BY MOUTH EVERY EVENING AT BEDTIME active Not Available Not Available No t Available meclizine 25 mg tablet Take 1 tablet by mouth three times a day as needed 12/19 completed Not Available Not Available Not Available benzonata te 100 mg capsule Take 1 capsule by mouth three times a day as needed for cough 01/11 completed Not Available Not Available Not Available cephalexi n 500 mg capsule Take 1 capsule by mouth three times a day 11/02 completed Not Available Not Available Not Available losartan 25 mg tablet Take 1 tablet every day by oral route. 2023 active Not Available Not Available Not Avai lable cephalexi n 500 mg tablet 1CAP four times daily 07/11 completed Not Available Not Available Not Available aspirin 81 mg tablet 1 tab qd 2012 active Not Available Not Available Not Avai lable hydrochlo rothiazid e 25 mg tablet TAKE ONE TABLET BY MOUTH EVERY DAY active Not Available Not Available No t Available Aspir-81 mg tablet,de layed release take 1 tab daily 12/10 completed Not Available Not Available Not Available lovastati n 20 mg tablet Take 1 by mouth at bedtime 05/15 completed Not Available Not Available Not Available nifedipin e ER 60 mg tablet,ex tended release TAKE ONE TABLET BY MOUTH EVERY DAY, TAKE WITH 30 MG FOR TOTAL 90 MG DAILY active Not Available Not Available No t Available losartan 100 mg tablet 1 tablet by mouth once a day 03/03 completed Not Available Not Available Not Available Erythromy edmar (Ophth) 5 mg/g eye ointment top tid 08/07 completed Not Available Not Available Not Available atenolol 50 mg tablet 1 TAB QD 04/11 completed Not Available Not Available Not Available Zostavax (PF) 1 inj once 11/28 completed Not Available Not Available Not Available Vitals Date Recorded Body height Body mass index (BMI) Body weight Body temperature Oxygen saturation Oxygen saturation in Arterial blood by Pulse oximetry Heart rate Respiratory rate Systolic blood pressure Diastolic blood pressure Provider Name and Address Organization Details Last Updated DateTime 4 162.56 cm 29.6 kg/m2 63317.2 9 g 97.5 [degF] 95 % 95 % 70 /min 20 /min 137 mm[Hg] 69 mm[Hg] CRISTOPHER SHEA RN [facility] 4 08:56:30 Date Recorded Body height Body mass index (BMI) Body weight Oxygen saturation Oxygen saturation in Arterial blood by Pulse oximetry Heart rate Systolic blood pressure Diastolic blood pressure Provider Name and Address Organization Details Last Updated DateTime 4 162.56 cm 29 kg/m2 11003.1 1 g 93 % 93 % 58 /min 134 mm[Hg] 58 mm[Hg] DESIRE DOAN MA [facility] 4 14:30:03 Date Recorded Body height Body mass index (BMI) Body weight Body temperature Respiratory rate Oxygen saturation Oxygen saturation in Arterial blood by Pulse oximetry Heart rate Systolic blood pressure Diastolic blood pressure Provider Name and Address Organization Details Last Updated DateTime 4 162.56 cm 29.4 kg/m2 71697.3 g 96.5 [degF] 18 /min 95 % 95 % 60 /min 140 mm[Hg] 70 mm[Hg] NAVI NEELY LPN [facility] 4 10:28:46 Date Recorded Body height Body mass index (BMI) Body weight Oxygen saturation Oxygen saturation in Arterial blood by Pulse oximetry Heart rate Systolic blood pressure Diastolic blood pressure Provider Name and Address Organization Details Last Updated DateTime 4 162.56 cm 29.6 kg/m2 04790.0 4 g 94 % 94 % 66 /min 144 mm[Hg] 68 mm[Hg] DESIRE DOAN MA [facility] 4 10:57:25 Social History Question Answer Notes LastModified by Organizat ion Details LastModified Time Tobacco Smoking Status Former Smoker DESIRE DOAN MA [facility], [facility] 07/16/2023 10:53:59 When Did You Quit Smoking? 16+yearssinc elastcigaret te [email or web address] Information not available 09/20/2023 Would You Say That, In General, Your Health Is Very Good [email or web address] Information not available 07/16/2023 How Often Does Anyone, Including Family, Physically Hurt You? Never [email or web address] Information not available 07/16/2023 How Often Does Anyone, Including Family, Insult Or Talk Down To You? Never [email or web address] Information no t available 07/16/2023 How Often Does Anyone, Including Family, Threaten You With Harm? Never [email or web address] Information not available 07/16/2023 How Often Does Anyone, Including Family, Scream Or Curse At You? Never [email or web address] Information not available 07/16/2023 Within The Past 12 Months, You Worried That Your Food Would Run Out Before You Got Money To Buy More. Never True [email or web address] Information n ot available 07/16/2023 Within The Past 12 Months, The Food You Bought Just Didn't Last And You Didn't Have Money To Get More. Never True Information not available 07/16/2023 How Hard Is It For You To Pay For The Very Basics Like Food, Housing, Medical Care, And Heating? Would You Say It Is: Not Hard At All Information not available 07/16/2023 In The Past 12 Months, Has Lack Of Reliable Transportation Kept You From Medical Appointments, Meetings, Work Or From Getting Things Needed For Daily Living? No [email or web address] Information not available 07/16/2023 What Is Your Housing Situation Today? I Do Not Have Housing [email or web address] Information not available 07/16/2023 How Often In The Past Year Have You Used Marijuana (including Smoking, Vaping, Dabbing, Or Edibles)? Never [email or web address] Information not available 07/16/2023 How Often In The Past Year Have You Used Prescription Medications That Were Not Prescribed To You? Never [email or web address] Information not available 07/16/2023 How Often In The Past Year Have You Taken Your Own Prescription Medication More Than The Way It Was Prescribed Or For Different Reasons Than Its Intended Purpose? Never [email or web address] Information not available 07/16/2023 How Often In The Past Year Have You Used Other Drugs (for Example, Heroin, Cocaine, Meth, Salvia, Inhalants)? Never [email or web address] Information not available 07/16/2023 Have You Ever Used IV Drugs? No [email or web address] Information not available 07/16/2023 Date Of Most Recent SBINS 07/16/2023 [email or web address] Information not available 07/16/2023 What Was The Date Of Your Most Recent Tobacco Screening? 12/20/2023 [email or web address] Information n ot available 12/20/2023 Has Tobacco Cessation Counseling Been Provided? No [email or web address] Information not available 12/20/2023 Do You Or Have You Ever Used Any Other Forms Of Tobacco Or Nicotine? No [email or web address] Information not available 12/20/2023 Sex: Male Functional Status None recorded. Mental Status None recorded. Family History Relationship Description Onset Age of this Age Resolved Age Notes LastModified by Organization Details LastModified Time Son Family history of acute medical disorder suicid e [email or web address] Not available 04/02/2023 03:55:04 Notes:*Problem: FAMILY HX: M other at 91 at an advanced age. Father at 77, had Alzheimer's disease. Has a sister who at 57 from breast and skin cancer. Has a brother recently dx'ed w/ prostate Ca. Medical History No medical history recorded. Immunizations Vaccine Type Date Status Provider Name and Address Organization Details Recorded Time Pneumococcal conjugate PCV20, polysaccharide LVB892 conjugate, adjuvant, PF 11/03/2023 completed NAVI NEELY LPN null, [facility] 11/03/2023 11:11:07 COVID-19, mRNA, LNP-S, PF, paulina-sucrose, 30 mcg/0.3 mL 02/23/2024 completed Mic Smith RN null, [facility] 02/23/2024 12:11:05 Influenza, high-dose, trivalent, PF 02/23/2024 completed Mic Smith RN null, [facility] 02/23/2024 12:11:05 Td (adult), 2 Lf tetanus toxoid, preservative free, adsorbed 06/26/2021 completed Not Available [facility] 06/11/2023 21:55:28 Tdap 04/08/2011 completed Not Available [facility] 21:55:28 zoster live 05/12/2013 completed Not Available [facility] 06/11/2023 21:55:28 Influenza, high-dose, trivalent, PF 03/14/2018 completed Not Available [facility] 06/11/2023 21:55:28 Influenza, high-dose, trivalent, PF 03/14/2019 completed Not Available [facility] 06/11/2023 21:55:28 Influenza, high-dose, trivalent, PF 03/24/2017 completed Not Available [facility] 06/11/2023 21:55:28 Td(adult) unspecified formulation 05/24/2003 completed Not Available [facility] 06/11/2023 21:55:28 Influenza, split virus, trivalent, preservative 03/30/2016 completed Not Available [facility] 06/11/2023 21:55:28 Influenza, split virus, trivalent, preservative 04/09/2015 completed Not Available [facility] 06/11/2023 21:55:28 Influenza, split virus, quadrivalent, PF 03/11/2020 completed Not Available [facility] 06/11/2023 21:55:28 Pneumococcal Conjugate, unspecified formulation 04/17/2014 completed Not Available [facility] 06/11/2023 21:55:29 Influenza, high-dose, quadrivalent, PF 03/04/2021 completed Not Available [facility] 06/11/2023 21:55:28 Influenza, high-dose, quadrivalent, PF 03/11/2022 completed Not Available [facility] 06/11/2023 21:55:28 COVID-19, mRNA, LNP-S, PF, 100 mcg/0.5mL dose or 50 mcg/0.25mL dose 03/21/2021 completed Not Available [facility] 06/11/2023 21:55:28 SARS-COV-2 (COVID-19) vaccine, UNSPECIFIED 07/03/2020 completed Not Available [facility] 06/11/2023 21:55:28 SARS-COV-2 (COVID-19) vaccine, UNSPECIFIED 07/31/2020 completed Not Available [facility] 06/11/2023 21:55:28 COVID-19, mRNA, LNP-S, bivalent, PF, 30 mcg/0.3 mL dose 03/11/2022 completed Not Available [facility] 06/11/19 21:55:28 pneumococcal polysaccharide PPV23 03/24/2007 completed Not Available [facility] 2023 21:55:28 Influenza, high-dose, quadrivalent, PF 03/03/2023 completed Not Available [facility] 06/11/2023 21:55:28 COVID-19, mRNA, LNP-S, PF, paulina-sucrose, 30 mcg/0.3 mL 05/07/2023 completed [facility]07/[facility]23 14:01:31 Past Encounters Encounter ID Performer Location Encounter Start Date Encounter Closed Date Diagnosis/Indication Diagnosis SNOMED-CT Code Diagnosis ICD10 Code [id number] JEFERSON STEPHEN MD [address] [address] 05/07/2023 10:19:23 05/07/2023 12:37:43 Urolithiasis 36054048 N20.9 Mild neuro cognitive disorder 006442905 G31.84 Hyperlipidemia 89220373 E78.5 Essential hypertension 01473802 I10 Chronic ki dney disease stage 3 294629367 N18.30 Benign par oxysmal positional vertigo 048829791 H81.10 Multiple a ctinic keratoses 040969193 L57.0 Prostate s pecific antigen above reference range 179464118 R97.20 Squamous c ell carcinoma of skin 009955774 C44.92 Administra tion of SARS-CoV-2 vaccine 2761656370 Z23 [id number] JEFERSON STEPHEN MD [address] [address] 07/16/2023 10:18:09 07/16/2023 11:41:20 Hypoxemia 815785642 R09.02 Chronic ki dney disease stage 3 801464492 N18.30 Essential hypertension 95610753 I10 Mild neuro cognitive disorder 620367820 G31.84 Prostate s pecific antigen above reference range 366749873 R97.20 Basal cell carcinoma of skin 945040479 C44.91 [id number] Rylee Pinto RN [address] [address] 07/23/2023 11:12:16 07/23/2023 11:31:[id number] [address] 09/20/2023 13:23:54 09/20/2023 14:06:24 Cellulitis of right upper limb 0926120426 8348151 L03.[id number] [address] 09/22/2023 09:57:00 09/22/2023 10:46:43 Cellulitis of right upper limb 7397423542 7074435 L03.[id number] [address] 09/24/2023 10:39:53 09/24/2023 10:59:58 Cellulitis of right upper limb 0205288639 9158716 L03.429 [id number] [facility] [address] [address] 09/27/2023 08:20:05 09/27/2023 09:10:12 Cellulitis of right upper limb 5361227805 4460485 L03.785 [id number] LIAN DUGAN PA-C [address] [address] 09/29/2023 10:20:18 09/29/2023 10:46:49 Cellulitis of right upper limb 2131033409 7706034 L03.192 [id number] JEFERSON STEPHEN MD [address] [address] 11/03/2023 10:17:57 11/03/2023 11:11:00 Prostate specific antigen above reference range 013082428 R97.20 Hyperlipidemia 33266082 E78.5 Essential hypertension 38276164 I10 Chronic ki dney disease stage 3 213783652 N18.30 Mild neuro cognitive disorder 164381545 G31.84 Squamous c ell carcinoma of skin 259471807 C44.92 Active or passive immunization 667639559 Z23 [id number] ELMA GARCIA PA-C [address] [address] 12/20/2023 10:09:46 12/20/2023 11:37:02 Impacted cerumen of bilateral ears 4756536581 371997 H61.[id number] [address] 01/05/2024 08:55:45 01/05/2024 10:03:12 Cough 68921129 R05.[id number] [address] 5 01/17/2024 14:23:36 01/17/2024 15:22:51 Impacted cerumen in left ear 7021390524 122031 H61.22 [id number] Mic Smith RN [address] [address] 02/23/2024 09:49:16 02/23/2024 10:47:23 Active or passive immunization 133241582 Z23 [id number] [address] [address] 02/28/2024 10:24:24 02/28/2024 11:01:30 Squamous cell carcinoma of skin 369272034 C44.92 Actinic keratosis 799235 007 L57.0 Essential hypertension 48957761 I10 [id number] JEFERSON STEPHEN MD [address] [address] 04/05/2024 10:50:30 04/05/2024 12:30:41 Anxiety disorder 643241636 F41.9 Essential hypertension 88670301 I10 Hyperlipidemia 13367167 E78.5 Prostate s pecific antigen above reference range 508813548 R97.20 Actinic keratosis 662224 007 L57.0 Health Concerns Section Related Observation LastModified by Organization Detai ls LastModified Time None Recorded Concern Status LastModified by Organization Details LastModified Time None Recorded Advance Directives Directive None Recorded Payers Encounter Date Sequence Insurance Name Policy Number Policy Petit Covered Member ID Petit Member ID Guarantor Name 01/05/2024 1 [facility] (MEDICARE REPLACEMENT/A DVANTAGE - PPO) [id number] Anup A Fauteux [id number] Anup A Fauteux 01/17/2024 1 [facility] (MEDICARE REPLACEMENT/A DVANTAGE - PPO) [id number] Anup A Fauteux [id number] Anup A Fauteux 02/23/2024 1 [facility] (MEDICARE REPLACEMENT/A DVANTAGE - PPO) [id number] Anup A Fauteux [id number] Anup A Fauteux 02/28/2024 1 [facility] (MEDICARE REPLACEMENT/A DVANTAGE - PPO) [id number] Anup A Fauteux [id number] Anup A Fauteux 04/05/2024 1 [facility] (MEDICARE REPLACEMENT/A DVANTAGE - PPO) [id number] Anup A Fauteux [id number] Anup A Fauteux Notes Date Note Type Note Provider Name and Address Organization Details Recorded Time 01/05/2024 text/html Shortness of john ath Short of breath, feels something stuck in his chest, no fever or chills. Feels sick, no otc medication. No one else sick at home. Cough, mild sore throat, no sinus pain or headache, no ear ache or runny nose, no chest pain, sleep is okHas been drinking lots of waterAppetite is goodSick since last Wednesday or [address], [place], [address], [facility], [facility]. 01/05/2024 12:28:47 01/17/2024 text/html cc check ears sharon chambers Has been wearing hearing aides, just wants his ears checked other oh well [address], [place], [address], [facility], [facility] 01/17/2024 15:22:34 02/28/2024 text/html cc: skin concern by left ear Patient complaining of a dime-sized, hard lump in front of left ear. Area surrounding the lump is red with two small open areas sloughing of skin in the middle. Reports bleeding from this area. This area on left side of face was frozen [place] [facility] [place], has been getting more sore since that time. Patient reports that area now seems more red than it had been, and so decided to get it evaluated. He is unsure if it is growing in size. Not sure when open area or bleeding developed. He uses a band-aid on the area at night. He reports that the area is painful to touch and has always been that way. He does not have a scheduled follow-up appt. with dermatology. No injury, scrape, laceration, or insect bite was associated with the location. Patient has history of squamous cell carcinoma. Saw Dermatology [place] 11/15/20[place] [facility] [place]-proven SCC. Biopsied by PCP. There was electrodesiccation and curettage of area. Right flank, 1.5 cm area, Left flank 1.7 cm area. Biopsied by PCP. 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 MOHS procedure performed. Patient reports that he already had flu and Covid vaccine. MD [address], [place], [address], [facility]. 02/28/2024 13:14:05 04/05/2024 text/html Follow-up hypert clint Hebert brought in his blood pressure readings and they have been too high at home, though highly variable. He has had no recurrence of significant lightheadedness. Overall he feels well and he is doing some walking again. No chest pain or chest heaviness. No new numbness or weakness. He is scheduled for excision of the large SCC in front of the left ear, in about a month's time. He notes some new bumps on the back of both hands but they do not bother him. His mood is good. 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 No new weakness or numbness. No edema or orthopnea. Has to get up every hour and a half to void, but gets back to sleep. He does not want to consider other urologic intervention. There is been no bleeding. MD [address], [place], [address], [facility]. 04/05/2024 12:30:38
--- OUTSIDE RECORDS SUMMARY | 2024-04-05 13:12 | XMS_ITS | Encounter Summary ---
[facility] [place] [address] Care Team Providers Care Hospital Librarian Name Role Phone Henry Lehman MD Primary Care Provider [phone] Encounter Details Date Type Department Care Team (Latest Contact Info) Description 09/14/2023 Travel Social History Tobacco Use Types Packs/Day [...] on filedocumented in this encounter Care Teams Hospital Librarian Relationship Specialty Start Date End Date Henry Lehman MD [address] [place] [phone] PCP - General General Internal Medicine 08/19/23 documented as of this encounter
--- OUTSIDE RECORDS SUMMARY | 2024-04-05 13:13 | XMS_ITS | Encounter Summary ---
Author Organization [facility] Address [address] [place] [address] Care Team Providers Care [employer] 8 Teacher Name Role Phone Henry Lehman MD Primary Care Provider [phone] Reason for Visit * Reason Comments Chronic Kidney Disease Encounter Details Date Type Department Care Team ([facility] st Contact Info) Description 10/29/2022 10:[address] [facility] Nephrology - [address] [id number] Armida Engle NP Stage 3b chronic kidney disease (HCC-CMS) (Primary Dx) Social History Tobacco Use Types Packs/Day Years [...] Body Mass Index 27.97 10/29/2022 1026 EDT documented in this encounter Functional Status * Because of a physical, mental, or emotional condition, does this person have difficulty doing errands alone such as visiting a doctor's office or shopping? Answer Date of Assessment Author No 06/09/2018 13:29 EST documented as of this encounter Mental Status * Because of a physical, mental, or emotional condition, does this person have serious difficulty concentrating, remembering, or making decisions? Answer Entry Date Author Yes 06/09/2018 13:29 EST documented in this encounter Patient Instructions * Patient Instructions* Armida Engle NP - 10/29/2022 10:30 EDT No follow up necessary, PCP can manage stable CKD Stage 3b Discharge from Nephrology Clinic documented in this encounter Progress Notes * Armida Engle NP - 10/29/2022 1030 EDT Nephrology Clinic Progress Note (Est Patient) Henry Gavin Fallon Date of Visit: 10/29/2022 Current symptoms, medications, vital signs, and recent laboratory data were being reviewed. Chief Complaint Patient presents with ??? Chronic Kidney Disease History of Present Illness Anup Stanton is being seen in follow-up for chronic kidney disease Stage 3b. Baseline Cr 1.8-2.0 for the past 5 years. PMH includes hypertension and CKD. No overt proteinuria, on losartan 100 mgdaily. is present in the room, georgian brand inspector on the iPad to interpret the visit. Review of Systems Constitutional: Neg recent weight gain/loss or fatigue HEENT: Negative Cardiovascular: Neg for chest pain, LE edema Respiratory: Neg for dyspnea, cough Gastrointestinal: Neg for abdominal pain, N/V/D, constipation Genitourinary: Neg for urinary hesitancy, urgency, dysuria, hematuria, flank pain Musculoskeletal: Neg joint pain, back pain, neck pain Skin: Neg for color change, rash, bruising Neurological: Neg for BARAJAS, dizziness, weakness, syncope All other systems reviewed and are negative Vitals: 10/29/22 1026 BP: 118/59 BP Cuff Location: Left arm BP Patient Position: Sitting BP Cuff Sizes: Adult, regular Pulse: 50 Weight: 78 kg (172 lb) Height: 167 cm (65.75) Physical Examination General appearance: well nourished, well developed, in no acute distress Head: Atraumatic, normocephalic Cardiovascular: Normal rate/rhythm, no murmur/rub/gallop, no LE edema Pulmonary: CTAB Abdomen: Non-distended, soft, non-tender, normal bowel sounds Extremities: Warm, dry Neurologic: No weakness Current Outpatient Medications Medication Sig Dispense Refill ??? atorvastatin (LIPITOR) 20 mg tablet Take 20 mg by mouth daily. ??? citalopram (CELEXA) 20 mg tablet Take 20 mg by mouth daily. ??? hydroCHLOROthiazide (HYDRODIURIL) 25 mg tablet Take 25 mg by mouth daily. ??? losartan (COZAAR) 100 mg tablet Take 100 mg by mouth daily. ??? NIFEdipine XL (PROCARDIA-XL) 60 mg tablet Take 60 mg by mouth daily. No current facility-administered medications for this visit. Labs No results found for: CREATININE, BUN, NA, K, CL, CO2, CALCIUM No results found for: MICROALBUR No results found for: MICROALBUR No results found for: RBCU, WBCUA No results found for: HGB, WBC No results found for: IRON, TIBC, FERRITIN No results found for: HGBA1C No results found for: CALCIUM, CAION, PHOS No results found for: SPEP, UPEP No results found for: CHUCKIE, C3, C4, RF, CRP, PANCA No results found for: HAV, HEPAIGM, HEPBIGM, HEPBCAB, HBEAG, HEPCAB No results found for: URICACID Assessment and Plan Essential hypertension Stable blood pressure control on losartan 100 mg daily, nifedipine XL 60 mg daily, and hydrochlorothiazide 25 mg daily. No medication changes Stage 3b chronic kidney disease (HCC) Stable renal function, Cr in baseline at 2.0/ BUN 36 and eGFR 32 ml/min/1.73m2 Stable electrolytes, K 4.2, Na 140, CO2 28 Stable Hgb 14.2, no need for TOÑA therapy Maintain adequate hydration Continue to avoid all NSAIDs No follow up necessary, PCP can manage stable CKD Stage 3b No orders of the defined types were placed in this encounter. Patient Instructions No follow up necessary, PCP can manage stable CKD Stage 3b Discharge from Nephrology Clinic documented in this encounter Miscellaneous Notes * Assessment & Plan Note - Armida Engle NP - 10/29/2022 1244 EDTAssociated Problem(s): Stage 3b chronic kidney disease ([facility]) Stable renal function, Cr in baseline at 2.0/ BUN 36 and eGFR 32 ml/min/1.73m2 Stable electrolytes, K 4.2, Na 140, CO2 28 Stable Hgb 14.2, no need for TOÑA therapy Maintain adequate hydration Continue to avoid all NSAIDs No follow up necessary, PCP can manage stable CKD Stage 3b * Assessment & Plan Note - Armida Engle NP - 10/29/2022 124 EDTAssociated Problem(s): Essential hypertension Stable blood pressure control on losartan 100 mg daily, nifedipine XL 60 mg daily, and hydrochlorothiazide 25 mg daily. No medication changes documented in this encounter Plan of Treatment Upcoming Encounters Date Type Department Care Team (Late st Contact Info) Description 05/02/2024 9:30 EST Office Visit [address] [phone] Henry Mercado MD [address] [place] [phone] 06/13/2024 9:[address] [facility] Ophthalmology [address] [phone] Henry Mercado MD [address] [place] [phone] documented as of this encounter Visit Diagnoses Diagnosis Stage 3b chronic kidney disease ([facility])- Primary documented in this encounter Care Teams Grades 7 And 8 Teacher Relationship Specialty Start Date End Date Henry Lehman MD [address] [place] [address] PCP - General 11/22/18 documented as of this encounter
--- OUTSIDE RECORDS SUMMARY | 2024-04-05 13:13 | XMS_ITS | Encounter Summary ---
Author Organization [facility] Address [address] [place] [address] Care Team Providers Care Yarn Examiner Skeins Name Role Phone Unknown, Provider MD Primary Care Provider Unava ilable Reason for Visit * Reason Comments Chronic Kidney Disease * Consult, Test and Treat (Routine) - Closed Specialty Diagnoses / Procedures Referred By Indu baum Referred To Contact Nephrology Diagnoses Deterioration in renal function [facility] Nephrology [address] [address] Phone: tel: fax: Referral ID Status Reason Start Date Expiration Date Visits Re quested Visits Authorized [id number] Closed 1 1 Encounter Details Date Type Department Care Team (Late st Contact Info) Description 06/09/2018 13:30 EST Office Visit [facility] Nephrology [address] [id number] Dayday Dutta MD [address] [place] [phone] CKD (chronic kidney disease) stage 3, GFR 30-59 ml/min ([facility]) (Primary Dx) Discharge Disposition: Auto Discharge Social History Tobacco Use Types Packs/Day Years Used Date Smoking Tobacco: Former Smokeless Tobacco: Never Sex and Gender Information Value Date Recorded Sex Assigned at Not on file Legal Sex Male 16:26 EST Gender Identity Not on file Sexual Orientation Not on file documented as of this encounter Last Filed Vital Signs Vital Sign Reading Time Taken Comments Blood Pressure 138/70 06/09/2018 1353 EST Pulse 58 06/09/2018 1329 EST Temperature - - Respiratory Rate - - Oxygen Saturation - - Inhaled Oxygen Concentration - - Weight 75.6 kg (166 lb 11.2 oz) 06/09/2018 1329 EST Height 167 cm (5' 5.75) 06/09/2018 1329 EST Body Mass Index 27.11 06/09/2018 1329 EST documented in this encounter Functional Status * [...] 06/09/2018 13:29 EST documented in this encounter Discharge Diagnoses Diagnosis N18.3 Chronic kidney disease, stage 3 (moderate)-N18.3[ICD-10-CM] documented in this encounter Patient Instructions * Patient Instructions* Dayday Dutta MD - 06/09/2018 13:30 EST 1. Continue medications at your current doses 2. Follow-up with me in 6 months documented in this encounter Discharge Disposition Disposition Code Departure Means Destination Auto Discharge documented in this encounter Progress Notes * Dayday Dutta MD - 06/09/2018 1330 EST Images from the original note were not included. Subjective: Patient ID: Rebecca Bay is an 83 y.o. male. Chief Complaint Patient presents with ??? Chronic Kidney Disease HPI Mr. Bay is being seen in the nephrology clinic at the request of Dr. Lehman for the problem ofchronic kidney disease. The patient appears well in the clinic and does not have any current complaints. He is accompanied by an musician instrumental for [place]. The patient is originally from [place] and now lives with his of 58 years in [place], [place]. 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 He does not have a history of HTN, but he has been bothered by gout at times. He does not use NSAIDs except for a couple of Advil when his gout flares. He states his blood pressure has been in good control. He has two healthy sons and he is not aware of any family history of kidney disease or stones. He has had a recent renal ultrasound and a Bence-Villa test and both were normal.He remains quite active and walks 2.5 miles per day outside or on his treadmill. A summary of his eGFR over the past 3 years iis shown below: There is no problem list on file for this patient. In addition to stage 3 CKD (eGFR 35) he has a history of HTN, anxiety, GERD and hyperlipidemia. No past medical history on file. As above No past surgical history on file. Right inguinal hernia repair; appendectomy No family history on file. As above, family history is negative. Social Social History Socioeconomic History ??? Marital status: Spouse name: Not on file ??? Number of children: Not on file ??? Years of education: Not on file ??? Highest education level: Not on file Social Needs ??? Financial resource strain: Not on file ??? Food insecurity - worry: Not on file ??? Food insecurity - inability: Not on file ??? Transportation needs - medical: Not on file ??? Transportation needs - non-medical: Not on file Occupational History ??? Not on file Tobacco Use ??? Smoking status: Former Smoker ??? Smokeless tobacco: Never Used Substance and Sexual Activity ??? Alcohol use: Not on file ??? Drug use: Not on file ??? Sexual activity: Not on file Other Topics Concern ??? Not on file Social History Narrative ??? Not on file No current outpatient medications on file prior to visit. No current facility-administered medications on file prior to visit. Medications: Nifedipine 60 mg daily Losartan-HCTZ 100/25 daily Atorvastatin 20 mg daily Citalopram 20 mg daily ASA 81 mg daily Meclizine 25 mg tid prn dizziness Allergies Allergen Reactions ??? Lisinopril Review of Systems Constitutional: Negative for chills, fever, malaise/fatigue and weight loss. HENT: Positive for hearing loss. Negative for nosebleeds, sinus pain and sore throat. Eyes: Negative for pain and redness. Respiratory: Negative for cough and shortness of breath. Cardiovascular: Negative for chest pain, palpitations, claudication and leg swelling. Gastrointestinal: Negative for abdominal pain, blood in stool, diarrhea, heartburn, nausea and vomiting. Genitourinary: Negative for dysuria, flank pain and hematuria. Nocturia x 3 Musculoskeletal: Negative for joint pain, myalgias and neck pain. Gout hx Skin: Negative for rash. Neurological: Negative for dizziness, sensory change, focal weakness, seizures and weakness. Endo/Heme/Allergies: Does not bruise/bleed easily. Psychiatric/Behavioral: Negative for depression and memory loss. The patient is not nervous/anxious. - See HPI Objective: BP 138/70 (BP Cuff Location: Right arm, Patient Position: Sitting, BP Cuff Sizes: Adult, long) Pulse 58 Ht 167 cm (65.75) Wt 75.6 kg (166 lb 11.2 oz) BMI 27.11 kg/m?? Physical Exam Constitutional: He is oriented to person, place, and time. He appears well- developed and well-nourished. No distress. HENT: Nose: Nose normal. Mouth/Throat: Mucous membranes are moist. Oropharynx is clear. Pharynx is normal. Eyes: Conjunctivae and EOM are normal. Pupils are equal, round, and reactive to light. Neck: Normal range of motion. Neck supple. Cardiovascular: Normal rate, regular rhythm, normal heart sounds and intact distal pulses. Exam reveals no gallop and no friction rub. No murmur heard. Pulmonary/Chest: Effort normal and breath sounds normal. No respiratory distress. He has no wheezes. He has no rales. Abdominal: Soft. Bowel sounds are normal. He exhibits no mass. There is no tenderness. Musculoskeletal: Normal range of motion. He exhibits no edema. Lymphadenopathy: He has no cervical adenopathy. Neurological: He is alert and oriented to person, place, and time. Skin: Skin is warm and dry. No rash noted. Nails show no clubbing. Psychiatric: He has a normal mood and affect. His behavior is normal. Thought content normal. Vitals reviewed. Labs: Results for REBECCA BAY ( ) as of 06/10/2018 00:44 Ref. Range 06/06/2018 00:00 Sodium, External Unknown 141 Potassium, External Unknown 4.1 CO2, External Unknown 30.0 Chloride, External Unknown 104 BUN, External Unknown 32 Creatinine, External Unknown 1.82 ALT, External Unknown 28 GFR, Calculated, External Unknown 35.93 Glucose, Serum, External Unknown 104 Calcium, External Unknown 9.3 Phosphorus, External Unknown 3.0 Albumin, External Unknown 3.8 WBC, External Unknown 7.59 RBC, External Unknown 4.68 Hemoglobin, External Unknown 14.5 HCT, External Unknown 44.2 MCV, External Unknown 94.4 MCH, External Unknown 31.0 PLT, External Unknown 236 RDW-CV, External Unknown 13.1 Urinalysis: Results for REBECCA BAY ( ) as of 06/10/2018 00:44 Ref. Range 06/09/2018 13:47 Color Latest Ref Range: Yellow YELLOW Clarity, UA Latest Ref Range: Clear Clear Specific [place] Latest Ref Range: 1.001 - 1.035 1.020 pH Latest Ref Range: 4.6 - 8.0 7.0 Glucose Latest Ref Range: Neg Neg Bilirubin Latest Ref Range: Neg Neg Ketones Latest Ref Range: Neg Neg Blood Latest Ref Range: Neg Neg Protein Latest Ref Range: Neg Neg Urobilinogen Latest Ref Range: 0.2 - 1.0 mg/dL 0.2 Nitrite Latest Ref Range: Neg Neg Leuk Esterase Latest Ref Range: Neg Neg Results for REBECCA BAY ( ) as of 06/10/2018 00:44 Ref. Range 06/09/2018 13:48 Ur Alb ug/mg Crea Latest Units: ug/mg Crea 6.5 Urine sediment: I personally examined the sediment, which was without cells, casts, or crystals. Assessment/Plan: Stage 3 CKD (eGFR 36) without albuminuria: Mr. Bay is clinically well with no complaints. His blood pressure is well controlled on a regimen including an ARB. He does not have a history of DM and have a microalbuminuria less than 10 mg/g.His renal ultrasound is normal and a Bence-Villa test was negative. As is often the case, the exactetiology of his CKD is not known with certainty, although hypertension probably played a role. There is no reason to suspect glomerulonephritis, obstruction, or a TMA. Chronic interstitial nephritis (eg, sometimes seen in gout) cannot be excluded but his renal ultrasound did not show increases echogenicity. There is no further work- up indicated and the emphasis will be on trying to slow the progression of his CKD by controlling his blood pressure, leaving him on the ARB, and avoiding exposure to potential nephrotoxins. Plan: 1. Continue to keep blood pressure as it is with him on an ARB 2. Avoid NSAIDs 3. Follow-up with me in 6 months documented in this encounter Plan of Treatment Upcoming Encounters Date Type Department Care Team (Late st Contact Info) Description 05/02/2024 9:30 EST Office Visit [facility] Ophthalmology [address] [phone] Henry Mercado MD [address] [place] [phone] 06/13/2024 9:30 EST Office Visit [address] [phone] Henry Mercado MD [address] [place] [phone] documented as of this encounter Procedures Procedure Name Priority Date/Time Associated Diagnosis Comments URINE [id number] NE RATIO (ACR) Routine 06/09/2018 13:48 EST CKD (chronic kidney disease) stage 3, GFR 30-59 ml/min ([facility]) POCT URINE DIPSTICK, CLINITEK Routine 06/09/2018 13:47 EST CKD (chronic kidney disease) stage 3, GFR 30-59 ml/min ([facility]) documented in this encounter Results * ALBUMIN, URINE (06/09/2018 13:48 EST) Creatinine, Urn [place] 92.6 mg/dl 06/09/2018 18:12 EST [facility] Ur Albumin mg/dl 0.6 mg/dL 06/09/19 19 18:14 EST [facility] Comment:Immuno[employer] 5600 Meth odology in use 09/22/2017 Urine Albumin to Creatinine Ratio 6.5 ug/mg Crea 06/09/2018 18:14 [facility] Comment: Normal: <30 ug/mg creatinine Moderately increased albuminuria: 30-300 ug/mg creatinine Severly increased albuminuria: >300 ug/mg creatinine TagMan 5600 Methodology in use 09/22/2017 Urine specimen (specimen) URINE / Unknown 06/09/2018 13:48 EST 06/09/2018 17:31 EST Dayday Dutta MD CHEMISTRY & BLOOD GAS ORDERABLES Final Result [facility] [address] [place] [phone] * POCT URINE DIPSTICK, CLINITEK (06/09/2018 13:47 EST) Color YELLOW Yellow 06/09/2018 13:54 [facility] Clarity, UA Clear Clear 06/09/2018 13:54 [facility] Glucose Neg Neg 06/09/2018 13:54 [facility] Bilirubin Neg Neg 06/09/2018 13:54 [facility] Ketones Neg Neg 06/09/2018 13:54 [facility] Specific [place] 1.020 1.001 - 1.035 06/09/2018 13:54 [facility] Blood Neg Neg 06/09/2018 13:54 [facility] pH 7.0 4.6 - 8.0 06/09/2018 13:54 [facility] Protein Neg Neg 06/09/2018 13:54 [facility] Urobilinogen 0.2 0.2 - 1.0 mg/dL 06/09/2018 13:54 [facility] Nitrite Neg Neg 06/09/2018 13:54 [facility] Leuk Esterase Neg Neg 06/09/2018 13:54 [facility] peripheral edp equipment operator ID [id number] 06/09/2018 13:54 [facility] Comment:Test Performed at Re nal Services Urine specimen (specimen) URINE / Unknown 06/09/2018 13:47 EST 06/09/2018 13:54 EST Dayday Dutta MD POINT OF CARE TEST ORDERABLES Fi nal Result [facility] [address] [place] [phone] documented in this encounter Visit Diagnoses Diagnosis CKD (chronic kidney disease) stage 3, GFR 30-59 ml/min ([facility])- Primary Chronic kidney disease, Stage III (moderate) documented in this encounter Care Teams Yarn Examiner Skeins Relationship Specialty Start Date End Date Unknown, Provider, PCP - General 06/09/16 11/21/18 documented as of this encounter
--- OUTSIDE RECORDS SUMMARY | 2024-04-05 13:13 | XMS_ITS | Encounter Summary ---
Author Organization [facility] Address [address] [place] [address] Care Team Providers Care Boiler Riveter Name Role Phone Henry Lehman MD Primary Care Provider [phone] Encounter Details Date Type Department Care Team (Late st Contact Info) Description 10/08/2022 Lab Requisition [facility] Pathology & Laboratory Medicine - [address] [address] Outr Resulting Lab, Provider Social History Tobacco Use Types Packs/Day Years [...] on file documented as of this encounter Functional Status * Because of [...] 06/09/2018 13:29 EST documented in this encounter Plan of Treatment Upcoming Encounters Date Type Department Care Team (Late st Contact Info) Description 05/02/2024 9:30 EST Office Visit [facility] Ophthalmology - [address] [phone] Henry Mercado MD [address] [facility] [address] [place] [phone] 06/13/2024 9:30 EST Office Visit [facility] Ophthalmology - [facility] [address] [place], [place] [phone] Henry Mercado MD [address] [phone] documented as of this encounter Procedures Procedure Name Priority Date/Time Associated Diagnosis Comments PTH INTACT Routine 10/07/2022 11:20 EDT documented in this encounter Results * (ABNORMAL) PTH INTACT (10/07/2022 11:20 EDT) Intact PTH 198(H) 19 - 88 pg/mL 10/08/2022 19:46 EDT [facility] Blood VENOUS BLOOD / Unknown 10/07/2022 11:20 EDT 10/08/2022 17:23 EDT us Provider Outr Resulting Lab CHEMISTRY & BLOOD GA S ORDERABLES Final Result [facility] [address] [place] [address] documented in this encounter Visit Diagnoses Not on filedocumented in this encounter Care Teams Boiler Riveter Relationship Specialty Start Date End Date Henry Lehman MD [address] [place] [address] PCP - General 11/22/18 documented as of this encounter
--- OUTSIDE RECORDS SUMMARY | 2024-04-05 13:13 | XMS_ITS | Encounter Summary ---
Author Organization [facility] Address [address] [place] [address] Care Team Providers Care Ged Instructor Name Role Phone Henry Lehman MD Primary Care Provider [phone] Reason for Visit * Reason Onset Date Comments Appointment Related 10/08/2020 Encounter Details Date Type Department Care Team ([facility] st Contact Info) Description 10/08/2020 Telephone [facility] Nephrology - [address] [phone] Naveed Brady MD [address] [place] [address], [address] [place] [phone] Appointment Related Social History Tobacco Use Types Packs/Day Years [...] 06/09/2018 13:29 EST documented in this encounter Miscellaneous Notes * Telephone Encounter - Isabella Ortiz - 10/08/2020 1017 EDT Left voicemail with language line to switch appt on 10/29 to 10/31 as it needs to be in person with aninterpreter documented in this encounter Plan of Treatment Upcoming Encounters Date Type Department Care Team (Late st Contact Info) Description 05/02/2024 9:30 EST Office Visit [address] [phone] Henry Mercado MD [address] [place] [phone] 06/13/2024 9:30 EST Office Visit [address] [phone] Henry Mercado MD [address] [place] [phone] documented as of this encounter Visit Diagnoses Not on filedocumented in this encounter Care Teams Ged Instructor Relationship Specialty Start Date End Date Henry Lehman MD [address] [place] [address] PCP - General 11/22/18 documented as of this encounter
--- OUTSIDE RECORDS SUMMARY | 2024-04-05 13:13 | XMS_ITS | Encounter Summary ---
Author Organization [facility] Address [address] [place] [address] Care Team Providers Care Dinking Machine Operator Name Role Phone Henry Lehman MD Primary Care Provider [phone] Encounter Details Date Type Department Care Team (Late st Contact Info) Description 10/11/2020 Lab Requisition [facility] Pathology & Laboratory Medicine - [address] [address] Outr Resulting Lab, Provider Social History Tobacco [...] Info) Description 05/02/2024 9:30 EST Office Visit [facility] Ophthalmology - [address] [phone] Henry Mercado MD [address] [place] [phone] 06/13/2024 9:30 EST Office Visit [facility] Ophthalmology - [facility] [address] [place], [place] [phone] Henry Mercado MD [address] [phone] documented as of this encounter Procedures Procedure Name Priority Date/Time Associated Diagnosis Comments PTH INTACT Routine 10/10/2020 8:00 EDT documented in this encounter Results * (ABNORMAL) PTH INTACT (10/10/2020 8:00 EDT) Intact PTH 142(H) 19 - 88 pg/mL 10/14/2020 10:[address] [facility] Blood VENOUS BLOOD / Unknown 10/10/2020 8:00 EDT 10/11/2020 15:58 EDT us Provider Outr Resulting Lab CHEMISTRY & BLOOD GA S ORDERABLES Final Result [facility] [address] [place] [address] documented in this encounter Visit Diagnoses Not on filedocumented in this encounter Care Teams Dinking Machine Operator Relationship Specialty Start Date End Date Henry Lehman MD [address] [place] [address] PCP - General 11/22/18 documented as of this encounter
--- OUTSIDE RECORDS SUMMARY | 2024-04-05 13:13 | XMS_ITS | Encounter Summary ---
Author Organization [facility] Address [address] [place] [address] Care Team Providers Care Service Correspondent Name Role Phone Henry Lehman MD Primary Care Provider [phone] Reason for Visit * Reason Comments Eye Problem * Prior Authorization (Routine) - Authorization Not Required Specialty Diagnoses / Procedures Referred By Indu baum Referred To Contact Diagnoses Exudative age-related macular degeneration of right eye with active choroidal neovascularization ([facility]) Intermediate stage nonexudative age-related macular degeneration of left eye Procedures DE INTRAVITREAL NJX PHARMACOLOGIC AGT SPX DE AFLIBERCEPT INJECTION DE BEVACIZUMAB INJECTION [address] [address] Phone: tel: fax: [address] [address] Phone: tel: fax: Referral ID Status Reason Start Date Expiration Date Visits Requested Visits Authorized [id number] Authorization Not Required 2 2 Encounter Details Date Type Department Care Team (Late st Contact Info) Description 04/04/2024 9:15 EST Office Visit [address] [id number] Henry Mercado MD [address] [place] [address], 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 Dry age-related macular degeneration left eye. 4 week s/p Avastin right eye 03/02/24. Base Eye Exam Visual Acuity (Snellen - Linear) Right Left Dist sc 20/30 -1 20/50 Dist ph sc 20/30 Tonometry (Applanation, 9:20) Right Left Pressure 12 13 Neuro/Psych Oriented x3: Yes Mood/Affect: Normal Dilation Both eyes: Tropicamide 1%, Phenylephrine 2.5% @ 9:20 Slit Lamp and Fundus Exam Slit Lamp Exam Right Left Lids/Lashes ed, Dermatochalasis - upper lid ed, Dermatochalasis - upper lid Conjunctiva/Sclera White and quiet fluid filled cyst nasally Cornea Clear Clear Anterior Chamber Deep and quiet Deep and quiet Iris Dilated, no TID's Dilated, no TID's Lens 1+ Nuclear sclerosis, 2+ Cortical cataract 1+ Nuclear sclerosis, 2+ Cortical cataract Anterior Vitreous Lagunas ring Lagunas ring Fundus Exam Right Left Disc PPA PED and SRH Intact Rim Macula no drusen RPE clumping and atrophy, Drusen Vessels Normal Normal Periphery attached attached OCT, Retina - OU - Both Eyes Right Eye Quality was good. Scan locations included extrafoveal. Progression has improved. Findings include pigment epithelial detachment, subretinal fluid. Left Eye Progression has been stable. Notes Stable PP PED with resolution of subretinal fluid far from fovea right eye Drusen, outer retinal atrophy, left eye Intravitreal Injection, Pharmacologic Agent - OD - Right Eye Time Out 04/04/2024. 10:09. Confirmed correct patient, procedure, site, and patient consented. Anesthesia Topical anesthesia was used. Anesthetic medications included Proparacaine 0.5%, Tetracaine 0.5%. Procedure Preparation included 5% betadine to ocular surface, eyelid speculum. A 30 gauge needle was used. Injection: 1.25 mg bevacizumab Route: intravitreal, Site: Right Eye [facility]: [id number], Lot: [id number], Expiration date: 04/09/2024 Post-op Post injection exam found visual acuity of at least counting fingers. The patient tolerated the procedure well. There were no complications. The patient received written and verbal post procedure care education. Post injection medications were not given. DIAGNOSES: 1. Exudative age-related macular degeneration of right eye with active choroidal neovascularization([facility]) OCT, RETINA - OU - BOTH EYES INTRAVITREAL INJECTION, PHARMACOLOGIC AGENT - OD - RIGHT EYE bevacizumab (AVASTIN) ophthalmic syringe 1.25 mg 2. Intermediate stage nonexudative age-related macular degeneration of left eye OCT, RETINA - OU - BOTH EYES Assessment Wet Macular Degeneration = Parapapillary choroidal neovascular membrane right eye Resolution of subretinal fluid 4 weeks s/p Avastin #1 Offer Avastin #2 to reduce risk of vision loss Extend to 6 or 8 weeks after #3 Risks discussed Patient agreed Avastin right eye done today Intermediate Dry Macular Degeneration left eye No signs of Wet Macular Degeneration Start AREDS 2 vitamins to reduce risk of vision loss Monitor Return in about 4 weeks (around 05/02/2024), or if symptoms worsen or fail to improve, for Dilation, OCT, Avastin right. I am scribing for Dr. Henry Mercado MD while he is personally performing the service. Kermit Narvaez (Scribe) documented in this encounter Plan of Treatment Upcoming Encounters Date Type Department Care Team (Late st Contact Info) Description 05/02/2024 9:30 EST Office Visit [facility] Ophthalmology - [address] [address] Henry Mercado MD 111 [facility] [address] [place] [phone] 06/13/2024 9:30 EST Office Visit [facility] Ophthalmology - [address] [phone] Henry Mercado MD [address] [phone] documented as of this encounter Procedures Procedure [...] nonexudative age-related macular degeneration of left eye documented in this encounter Results * INTRAVITREAL INJECTION, PHARMACOLOGIC AGENT - OD - RIGHT EYE (04/04/2024 10:09 EST) Narrative [facility] POINT OF CARE - 04/04/2024 10:54 EST Time Out 04/04/2024. 10:09. Confirmed correct patient, procedure, site, and patient consented. Anesthesia Topical anesthesia was used. Anesthetic medications included Proparacaine 0.5%, Tetracaine 0.5%. Procedure Preparation included 5% betadine to ocular surface, eyelid speculum. A 30 gauge needle was used. Injection: 1.25 mg bevacizumab ??Route: intravitreal, Site: Right Eye ??[facility]: [id number], Lot: [id number], Expiration date: 04/09/2024 Post-op Post injection exam found visual acuity of at least counting fingers. The patient tolerated the procedure well. There were no complications. The patient received written and verbal post procedure care education. Post injection medications were not given. Henry Mercado MD OPHTH CLINIC PROCEDURES Final Re sult [facility] POINT OF CARE * OCT, RETINA - OU - BOTH EYES (04/04/2024 9:47 EST) Narrative [facility] OPHTHALMOLOGY - 04/04/2024 10:53 EST Right Eye Quality was good. Scan locations included extrafoveal. Progression has improved. Findings include pigment epithelial detachment, subretinal fluid. Left Eye Progression has been stable. Notes Stable PP PED with resolution of subretinal fluid far from fovea right eye Drusen, outer retinal atrophy, left eye Henry Mercado MD OPHTH TOMOGRAPHY Final Result Performing Organization Address [facility] Co de Phone Number [facility] OPHTHALMOLOGY documented in this encounter Visit Diagnoses Diagnosis Exudative age-related macular degeneration of right eye with active choroidal neovascularization (HCC-CMS)- Primary Intermediate stage nonexudative age-related macular degeneration of left eye documented in this encounter Administered Medications Inactive Administered Medications - up to 3 most recent administrations Medication Order MAR Action Action Date Dose Rate Site bevacizumab (AVASTIN) ophthalmic syringe 1.25 mg 1.25 mg, Starting on Wed04/04/24 at 1054, Until Wed04/04/24 at 1054, RoutineIndications:Exudative age-related macular degeneration of right eye with active choroidal neovascularization (HCC-CMS) Given 04/04/2024 10:54 EST 1.25 mg Right Eye documented in this encounter Orders Medications Ordered That Eagle ht Not Have Been Administered Count Last Ordered Date First Ordered Date bevacizumab (AVASTIN) ophtha lmic syringe 1.25 mg 1 04/04/2024 documented in this encounter Eye Exam Visual Acuity (Snellen - Linear) Right eye Left eye Dist sc 20/30 -1 20/50 Dist ph sc 20/30 Tonometry (Applanation, 9:20) Right eye Left eye Pressure 12 13 Neuro/Psych Oriented x3: Yes Mood/Affect: Normal Dilation Both eyes: Tropicamide 1%, P henylephrine 2.5% @ 9:20 Slit Lamp Exam Right eye Left eye Lids/Lashes ed, Dermatochalasis - upper lid ed, Dermatochalasis - upper lid Conjunctiva/Sclera White and quiet fluid filled cyst nasally Cornea Clear Clear Anterior Chamber Deep and quiet Deep and quiet Iris Dilated, no TID's Dilated, no TI D's Lens 1+ Nuclear sclerosis , 2+ Cortical cataract 1+ Nuclear sclerosis, 2+ Cortical cataract Anterior Vitreous Lagunas ring Lagunas ring Fundus Exam Right eye Left eye Disc PPA PED and SRH Intact Rim Macula no drusen RPE clumping and atrophy, Drusen Vessels Normal Normal Periphery attached attached Care Teams Service Correspondent Relationship Specialty Start Date End Date Henry Lehman MD [address] [place] [address] PCP - General 11/22/18 documented as of this encounter
--- OUTSIDE RECORDS SUMMARY | 2024-04-05 13:13 | XMS_ITS | Encounter Summary ---
Author Organization [facility] Address [address] [place] [address] Care Team Providers Care Lumber Tying Machine Operator Name Role Phone Unknown, Provider MD Primary Care Provider Unava ilable Encounter Details Date Type Department Care Team (Late st Contact Info) Description 06/09/2016 Results Only [facility] [phone] Frida Silva MD [address] [place] [phone] Social History Tobacco Use Types Packs/Day Years Used Date Smoking Tobacco: Never Assessed Sex and Gender Information Value Date Recorded Sex Assigned at Not on file Legal Sex Male 16:26 EST Gender Identity Not on file Sexual Orientation Not on file documented as of this encounter Plan of Treatment Upcoming Encounters Date Type Department Care Team (Late st Contact Info) Description 05/02/2024 9:30 EST Office Visit [address] [phone] Henry Mercado MD [address] [place] [phone] 06/13/2024 9:30 EST Office Visit [address] [phone] Henry Mercado MD [address] [place] [phone] (work) documented as of this encounter Procedures Procedure Name Priority Date/Time Associated Diagnosis Comments SURGICAL PATHOLOGY Routine 06/09/2016 8:38 EST documented in this encounter Results * SURGICAL PATHOLOGY (06/09/2016 8:38 EST) Pathology Report: SURGICAL PATHOLOGY REPORT Reports generated via electronic interface contain original data; however they are lacking the format of the original report. Caution should be taken when reading/interpret ing unformatted reports. Name: ? REBECCA BAY ? Accession #: ? [id number] ? : ? 1935 (Age: 81) ??M ? Collect Date: ? 06/09/2016 ? Location: ? [facility] ? Receive Date: ? 06/10/2016 ? Provider: FRIDA SILVA MD Copy to: ? Final Pathologic Diagnosis: COLON, TRANSVERSE POLYP, BIOPSY: - ??Tubular adenoma. Document reviewed and electronically signed by: CRISTOPHER LAST MD Report ??Date: 06/11/2016 10:06 By the signature above, the attending physician certifies that he/she has personally conducted a gross and/or microscopic examination of the described specimens and rendered or confirmed the above diagnosis. Specimen(s) Received: Transverse colon polyp Clinical History: F/U polyps; two small polyps Gross Description: ? Received in formalin labelled with proper patient identification (initials F, B) and transverse colon polyp is a single pink-slater tissue fragment (0.3 x 0.2 x 0.2 cm). Submitted intact in 1. JAIMIE Puente (ASCP) 06/10/2016 9:42 AM End of Report [facility] 06/09/2016 8:38 EST 06/10/2016 8:38 EST us Frida Silva MD PATHOLOGY ORDERABLES Final Resu lt [facility] [address] [place] [address] documented in this encounter Visit Diagnoses Not on filedocumented in this encounter Care Teams Lumber Tying Machine Operator Relationship Specialty Start Date End Date Unknown, Provider, PCP - General 06/09/16 11/21/18 documented as of this encounter
--- OUTSIDE RECORDS SUMMARY | 2024-04-05 13:13 | XMS_ITS | Encounter Summary ---
Author Organization [facility] Address [address] [place] [address] Care Team Providers Care Bricklayer Helper Name Role Phone Henry Lehman MD Primary Care Provider [phone] Encounter Details Date Type Department Care Team (Late st Contact Info) Description 01/12/2023 Lab Requisition [facility] Pathology & Laboratory Medicine - [address] [address] Outr Resulting Lab, Provider Social History Tobacco [...] Info) Description 05/02/2024 9:30 EST Office Visit [facility] Ophthalmology - [address] [phone] Henry Mercado MD [address] [place] [address] [address] [place] [phone] 06/13/2024 9:30 EST Office Visit [facility] Ophthalmology - [address] [phone] Henry Mercado MD [address] [place] [phone] documented as of this encounter Procedures Procedure Name Priority Date/Time Associated Diagnosis Comments PSA TOTAL, DIAGNOSTIC Routine 01/11/2023 16:20 EDT documented in this encounter Results * (ABNORMAL) PSA TOTAL, DIAGNOSTIC (01/11/2023 16:20 EDT) PSA 9.4(H) <=6.5 ng/mL 01/12/2023 18:27 EDT [facility] Blood VENOUS BLOOD / Unknown 01/11/2023 16:20 EDT 01/12/2023 16:52 EDT Narrative [facility] - 01/12/2023 18:27 EDT NOTE: Serum PSA concentration should not be interpreted as absolute evidence for the presence or absence of malignant disease. Assayed on Siemens ADVIA Centaur XPT using chemiluminescent technology.??Values obtained by using different assay methods cannot be used interchangeably. us Provider Outr Resulting Lab CHEMISTRY & BLOOD GA S ORDERABLES Final Result [facility] [address] [place] [address] documented in this encounter Visit Diagnoses Not on filedocumented in this encounter Care Teams Bricklayer Helper Relationship Specialty Start Date End Date Henry Lehman MD [address] [place] [address] PCP - General 11/22/18 documented as of this encounter
--- OUTSIDE RECORDS SUMMARY | 2024-04-05 13:13 | XMS_ITS | Encounter Summary ---
Author Organization [facility] Address [address] [place] [address] Care Team Providers Care Spouting Installer Name Role Phone Henry Lehman MD Primary Care Provider [phone] Reason for Visit * Reason Comments Referral Request By Breana Barbosa OD for eval of retinal hemorrhage / edema. * Consult, Test and Treat (Routine) - Authorization Not Required Specialty Diagnoses / Procedures Referred By Indu baum Referred To Contact Diagnoses Retinal hemorrhage Procedures [place] PROPH RETINAL DTCHMNT W/O DRG PHOTOCOAGULATION Henry Mercado MD [address] [place] [phone] Phone: tel: fax: [facility] Ophthalmology [address] [address] Phone: tel: fax: Referral ID Status Reason Start Date Expiration Date Visits Requested Visits Authorized [id number] Authorization Not Required 1 1 Encounter Details Date Type Department Care Team (Late st Contact Info) Description 03/02/2024 8:00 EDT Office Visit [facility] Ophthalmology [address] [address] Henry Mercado MD [address] [place] [phone] Social History Tobacco Use Types Packs/Day Years [...] Progress Notes * Henry Mercado MD - 03/02/2024 0800 EDT Chief Complaint Patient presents with Referral Request By Breana Barbosa OD for eval of retinal hemorrhage / edema. HPI Referral Request Comments: By Breana Barbosa OD for eval of retinal hemorrhage / edema. 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 No vision changes either eye since seeing Dr. Barbosa. No eye pain. Right eye is a little sensitive + 3/10 sensitivity right eye currently. + quick spot of red or yellow spot in vision that turns right eye. Most noticed when going to bed. No floaters. No prior h/o diabetes. No frequent BARAJAS pain. POHx: No prior h/o eye surgery or eye laser tx. No prior h/o head or eye trauma. Eye drops: none Base Eye Exam Visual Acuity (Snellen - Linear) Right Left Dist sc 20/40 -1 20/50 Dist ph sc 20/40 +2 20/40 -2 Tonometry (Applanation, 8:16) Right Left Pressure 17 18 Pupils Dark Light Shape React APD Right 2 1.5 Round Minimal None Left 2.5 2 Round Minimal None Visual Toro Right Left Full Full Extraocular Movement Right Left Full Full Neuro/Psych Oriented x3: Yes Mood/Affect: Normal Dilation Both eyes: Phenylephrine 2.5%, Tropicamide 1% @ 8:19 Slit Lamp and Fundus Exam Slit Lamp Exam Right Left Lids/Lashes ed, Dermatochalasis - upper lid ed, Dermatochalasis - upper lid Conjunctiva/Sclera White and quiet fluid filled cyst nasally Cornea Clear Clear Anterior Chamber Deep and quiet Deep and quiet Iris round, resactive, no TID's round, resactive, no TID's Lens 1+ Nuclear sclerosis, 2+ [...] - OD - Right Eye Time Out 03/02/2024. 8:58. Confirmed correct patient, procedure, site, and patient consented. Anesthesia Topical anesthesia was used. Anesthetic medications included Proparacaine 0.5%, Tetracaine 0.5%. Procedure Preparation included 5% betadine to ocular surface, eyelid speculum. A 30 gauge needle was used. Injection: 1.25 mg bevacizumab Route: intravitreal, Site: Right Eye [facility]: [id number], Lot: [id number], Expiration date: 03/03/2024 Post-op Post injection exam found visual acuity of at least counting fingers. The patient tolerated the procedure well. There were no complications. Post injection medications were not given. DIAGNOSES: 1. Exudative age-related macular degeneration of right eye with active choroidal neovascularization([facility]) OCT, RETINA - OU - BOTH EYES INTRAVITREAL INJECTION, PHARMACOLOGIC AGENT - OD - RIGHT EYE bevacizumab (AVASTIN) ophthalmic syringe 1.25 mg 2. Intermediate stage nonexudative age-related macular degeneration of left eye OCT, RETINA - OU - BOTH EYES Assessment Wet Macular Degeneration = Parapapillary choroidal neovascular membrane right eye Diagnosis and treatment discussed with patient and family Recommend starting Avastin injections today to reduce risk of vision loss Risks discussed Patient agreed Avastin right eye done today Intermediate Dry Macular Degeneration left eye No signs of Wet Macular Degeneration Start AREDS 2 vitamins to reduce risk of vision loss Monitor Return in about 4 weeks (around 03/30/2024) for oct, avastin. I am scribing for Dr. Henry Mercado MD while he is personally performing the service. WALLACE Cortés (Scribe) documented in this encounter Plan of Treatment Upcoming Encounters Date Type Department Care Team (Late st Contact Info) Description 05/02/2024 9:30 EST Office Visit [facility] Ophthalmology - [address] [phone] Henry Mercado MD [address] [place] [phone] 06/13/2024 9:30 EST Office Visit [address] [phone] Henry Mercado MD [address] [place] [phone] documented as of this encounter Procedures Procedure Name Priority Date/Time Associated Diagnosis Comments OCT, RETINA - OU - BOTH EYES Routine 03/02/2024 9:07 EDT Exudative age-related macular degeneration of right eye with active choroidal neovascularization (HCC-CMS) Intermediate stage nonexudative age-related macular degeneration of left eye INTRAVITREAL INJECTION, PHARMACOLOGIC AGENT - OD - RIGHT EYE Routine 03/02/2024 9:05 EDT Exudative age-related macular degeneration of right eye with active choroidal neovascularization (HCC-CMS) documented in this encounter Results * OCT, RETINA - OU - BOTH EYES (03/02/2024 9:07 EDT) Narrative [facility] OPHTHALMOLOGY - 03/02/2024 13:36 EDT Right Eye Quality was good. Scan locations included extrafoveal. Progression has no prior data. Findings include pigment epithelial detachment, subretinal fluid. Left Eye Progression has no prior data. Notes Parapapillary choroidal neovascular membrane with pp subretinal fluid far from fovea right eye Drusen, outer retinal atrophy, left eye Henry Mercado MD OPHTH TOMOGRAPHY Final Result Performing Organization Address [facility] Co de Phone Number [facility] OPHTHALMOLOGY * INTRAVITREAL INJECTION, PHARMACOLOGIC AGENT - OD - RIGHT EYE (03/02/2024 9:05 EDT) Narrative [facility] POINT OF CARE - 03/02/2024 13:36 EDT Time Out 03/02/2024. 8:58. Confirmed correct patient, procedure, site, and patient consented. Anesthesia Topical anesthesia was used. Anesthetic medications included Proparacaine 0.5%, Tetracaine 0.5%. Procedure Preparation included 5% betadine to ocular surface, eyelid speculum. A 30 gauge needle was used. Injection: 1.25 mg bevacizumab ??Route: intravitreal, Site: Right Eye ??[facility]: [id number], Lot: [id number], Expiration date: 03/03/2024 Post-op Post injection exam found visual acuity of at least counting fingers. The patient tolerated the procedure well. There were no complications. Post injection medications were not given. Result [facility] Henry Mercado MD OPH CLINIC PROCEDURES Final Re sult Performing Organization Address [facility] de Phone Number [facility] POINT [facility] CARE documented in this encounter Visit Diagnoses Diagnosis [...] syringe 1.25 mg 1.25 mg, Starting on Kyra 03/02/24 at 1336, Until Kyra 03/02/24 at 1336, RoutineIndications:Exudative age-related macular degeneration of right eye with active choroidal neovascularization (HCC-CMS) Given 03/02/2024 13:36 EDT 1.25 mg Right Eye documented in this encounter Historical Medications * This list may reflect changes made after this encounter. TAMSulosin (FLOMAX) 0.4 mg capsule Take 1 Capsule by mouth daily. added in this encounter Eye Exam Visual Acuity (Snellen - Linear) Right eye Left eye Dist sc 20/40 -1 20/50 Dist ph sc 20/40 +2 20/40 -2 Tonometry (Applanation, 8:16) Right eye Left eye Pressure 17 18 Pupils Dark Light Shape React APD Right eye 2 1.5 Round Minimal None Left eye 2.5 2 Round Minimal None Visual Toro Right eye Left eye Full Full Extraocular Movement Right eye Left eye Full Full Neuro/Psych Oriented x3: Yes Mood/Affect: Normal Dilation Both eyes: Phenylephrine 2.5 %, Tropicamide 1% @ 8:19 Slit Lamp Exam Right eye Left eye Lids/Lashes ed, Dermatochalasis - upper lid ed, Dermatochalasis - upper lid Conjunctiva/Sclera White and quiet fluid filled cyst nasally Cornea Clear Clear Anterior Chamber Deep and quiet Deep and quiet Iris round, resactive, no TID's round , resactive, no TID's Lens 1+ Nuclear sclerosis , 2+ Cortical cataract 1+ Nuclear sclerosis, 2+ Cortical cataract Anterior Vitreous Lagunas ring Lagunas ring Fundus Exam Right eye Left eye Disc PPA PED and SRH Intact Rim Macula no drusen RPE clumping and atrophy, Drusen Vessels Normal Normal Periphery attached attached Care Teams Spouting Installer Relationship Specialty Start Date End Date Henry Lehman MD [address] [place] [address] PCP - General 11/22/18 documented as of this encounter
--- OUTSIDE RECORDS SUMMARY | 2024-04-05 13:13 | XMS_ITS | Encounter Summary ---
Author Organization [facility] Address [address] [place] [address] Care Team Providers Care Photo Engraver Name Role Phone Henry Lehman MD Primary Care Provider [phone] Encounter Details Date Type Department Care Team (Late st Contact Info) Description 01/17/[address] [facility] Pathology & Laboratory Medicine - [address] [address] Outr Resulting Lab, Provider Social History Tobacco [...] Info) Description 05/02/2024 9:[address] [facility] Ophthalmology - [address] [phone] Henry Mercado MD [address] [place] [address] 5 [place] [phone] 06/13/2024 9:30 EST Office Visit [facility] Ophthalmology - [facility] [address] [place], [place] [address] Henry Mercado MD [address] [place] [phone] documented as of this encounter Procedures Procedure Name Priority Date/Time Associated Diagnosis Comments PSA TOTAL, DIAGNOSTIC Routine 01/16/2022 14:10 EDT documented in this encounter Results * (ABNORMAL) PSA TOTAL, DIAGNOSTIC (01/16/2022 14:10 EDT) PSA 10.7(H) <=6.5 ng/mL 01/19/2022 9:29 EDT [facility] Blood VENOUS BLOOD / Unknown 01/16/2022 14:10 EDT 01/18/2022 16:08 EDT Narrative [facility] - 01/19/2022 9:29 EDT NOTE: Serum PSA concentration should not be interpreted as absolute evidence for the presence or absence of malignant disease. Assayed on Siemens ADVIA Centaur XPT using chemiluminescent technology.??Values obtained by using different assay methods cannot be used interchangeably. us Provider Outr Resulting Lab CHEMISTRY & BLOOD GA S ORDERABLES Final Result [facility] [address] [place] [address] documented in this encounter Visit Diagnoses Not on filedocumented in this encounter Care Teams Photo Engraver Relationship Specialty Start Date End Date Henry Lehman MD [address] [place] [address] PCP - General 11/22/18 documented as of this encounter
--- OUTSIDE RECORDS SUMMARY | 2024-04-05 13:13 | XMS_ITS | Encounter Summary ---
Author Organization [facility] Address [address] [place] [address] Care Team Providers Care Hospitality Housekeeper Name Role Phone Henry Lehman MD Primary Care Provider [phone] Reason for Visit * Reason Onset Date Comments Appointment Related 10/20/2022 Encounter Details Date Type Department Care Team ([facility] st Contact Info) Description 10/20/[address] [facility] Nephrology - [address] [phone] Agata Sierra, RN Appointment Related Social History Tobacco Use Types [...] encounter Miscellaneous Notes * Telephone Encounter - Agata Sierra RN - 10/20/2022 2537 EDT Attempted to reach pt to inquire if he has had any recent labs drawn in the last month. Reached .Requested he return call to advise if any labs drawn in the last month so we can obtain a copy before his appt. documented in this encounter Plan of Treatment Upcoming Encounters Date Type Department Care Team (Late st Contact Info) Description 05/02/2024 9:30 EST Office Visit [address] [phone] Henry Mercado MD [address] [place] [phone] 06/13/2024 9:30 EST Office Visit [address] [phone] Henry Mercado MD [address] [place] [phone] documented as of this encounter Visit Diagnoses Not on filedocumented in this encounter Care Teams Hospitality Housekeeper Relationship Specialty Start Date End Date Henry Lehman MD [address] [place] [address] PCP - General 11/22/18 documented as of this encounter
--- OUTSIDE RECORDS SUMMARY | 2024-04-05 13:13 | XMS_ITS | Encounter Summary ---
Author Organization [facility] Address [address] [place] [address] Care Team Providers Care Cane Flume Watcher Name Role Phone Henry Lehman MD Primary Care Provider [phone] Encounter Details Date Type Department Care Team (Late st Contact Info) Description 10/23/[address] [facility] Nephrology - [address] [phone] Armida Engle NP Stage 3b chronic kidney [...] Info) Description 05/02/2024 9:30 EST Office Visit [facility] Ophthalmology - [facility] [place] [address] [place], [place] [phone] Henry Mercado MD 111 [facility], [facility] 5 [place] [phone] 06/13/2024 9:30 EST Office Visit [facility] Ophthalmology - [facility] [address] [place], [place] [phone] Henry Mercado MD 111 [facility] 5 [place] [phone] documented as of this encounter Procedures Procedure Name Priority Date/Time Associated Diagnosis Comments NEPHROLOGY PROFILE (INCLUDES BUN, CREATININE, CALCULATED GFR, ELECTROLYTES, CALCIUM, PHOSPHORUS, ALBUMIN) Routine 10/07/2022 Stage 3b chronic kidney disease ([facility]) PTH INTACT Routine 10/07/2022 Stage 3b chronic kidney disease ([facility]) PROTEIN, TOTAL, RANDOM, URINE Routine 10/07/2022 Stage 3b chronic kidney disease ([facility]) CREATININE, URINE RANDOM Routine 10/07/2022 Stage 3b chronic kidney disease ([facility]) COMPLETE BLOOD COUNT Routine 10/07/2022 Stage 3b chronic kidney disease ([facility]) documented in this encounter Results * COMPLETE BLOOD COUNT (10/07/2022) HCT, External 42.3 [facility] MCH, External 32.0 g/dL [facility] MCV, External 95 [facility] MCHC, External 33.6 g/dL [facility] Hemoglobin, External 14.2 % [facility] WBC, External 7.94 [facility] RBC, External 4.44 [facility] PLT, External 307 [facility] RDW-CV, External 12.9 [facility] Blood VENOUS BLOOD / Unknown 10/07/2022 us Naveed Brady MD HEMATOLOGY & PF4 ORDERABL ES Final Result Performing Organization Address [facility] Co de Phone Number [facility] * PTH INTACT (10/07/2022) PTH, External 198 [facility] Blood VENOUS BLOOD / Unknown 10/07/2022 us Naveed Brady MD CHEMISTRY & BLOOD GAS ORD ERABLES Final Result Performing Organization Address [facility] Co de Phone Number [facility] * NEPHROLOGY PROFILE (INCLUDES BUN, CREATININE, CALCULATED GFR, ELECTROLYTES, CALCIUM, PHOSPHORUS, ALBUMIN) (10/07/2022) Phosphorus, External 2.8 [facility] Albumin, External 3.6 [facility] BUN, External 36 mg/dL [facility] Chloride, External 105 mmol/L [facility] Creatinine, External 2.0 mg/dL [facility] Potassium, External 4.2 mmol/L [facility] GFR, Calculated, External 32.10 [facility] Calculated Calcium, External [facility] Calcium, External 9.4 mg/dL [facility] Sodium, External 140 mmol/L [facility] CO2, External 28.4 mmol/L [facility] Blood VENOUS BLOOD / Unknown 10/07/2022 us Naveed Brady MD PACKAGES & DNA PROBE ORDE RABLI Final Result Performing Organization Address [facility]/ZIP Co de Phone Number [facility] * CREATININE, URINE RANDOM (10/07/2022) Creatinine, Random U (UCRR), External 293.37 mg/dL [facility] Urine URINE SPECIMEN COLLECTION, CLEAN CATCH / Unknown 10/07/2022 us Naveed Brady MD URINALYSIS ORDERABLES Fin al Result Performing Organization Address [facility] Co de Phone Number [facility] * PROTEIN, TOTAL, RANDOM, URINE (10/07/2022) Tot Prot,Ur Random, External 24.1 [facility] Urine URINE SPECIMEN COLLECTION, CLEAN CATCH / Unknown 10/07/2022 Naveed Brady MD URINALYSIS ORDERABLES Fin al Result Performing Organization Address [facility] de Phone Number [facility] documented in this encounter Visit Diagnoses Diagnosis Stage 3b chronic kidney disease ([facility] Primary documented in this encounter Care Teams Cane Flume Watcher Relationship Specialty Start Date End Date Henry Lehman MD [address] [place] [address] PCP - General 11/22/18 documented as of this encounter
--- OUTSIDE RECORDS SUMMARY | 2024-04-05 13:13 | XMS_ITS | Encounter Summary ---
Author Organization [facility] Address [address] [place] [address] Care Team Providers Care Electronic Health Records Specialist Name Role Phone Henry Lehman MD Primary Care Provider [phone] Encounter Details Date Type Department Care Team (Late st Contact Info) Description 10/30/2021 Abstract [facility] Nephrology - [address] [address] Naveed Brady MD [address] [facility], Level [address] [place] [phone] Social History Tobacco Use Types Packs/Day Years [...] Info) Description 05/02/2024 9:30 EST Office Visit [address] [phone] Henry Mercado MD [address] [place] [phone] 06/13/2024 9:30 EST Office Visit [address] [phone] Henry Mercado MD [address] [place] [phone] documented as of this encounter Procedures Procedure Name Priority Date/Time Associated Diagnosis Comments COMPLETE BLOOD COUNT Routine 10/15/2021 11:00 EDT NEPHROLOGY PROFILE (INCLUDES BUN, CREATININE, CALCULATED GFR, ELECTROLYTES, CALCIUM, PHOSPHORUS, ALBUMIN) Routine 10/14/2021 13:00 EDT documented in this encounter Results * COMPLETE BLOOD COUNT (10/15/2021 11:00 EDT) HCT, External 40.0 [facility] MCH, External 32.1 [facility] MCV, External 95 [facility] MCHC, External 33.8 [facility] Hemoglobin, External 13.5 [facility] WBC, External 11.09 [facility] RBC, External 4.20 [facility] PLT, External 247 [facility] RDW-CV, External 13.0 [facility] Blood VENOUS BLOOD / Unknown 10/15/2021 11:00 EDT us Historical Provider HEMATOLOGY & PF4 ORDERABL ES Final Result [facility] * NEPHROLOGY PROFILE (INCLUDES BUN, CREATININE, CALCULATED GFR, ELECTROLYTES, CALCIUM, PHOSPHORUS, ALBUMIN) (10/14/2021 13:00 EDT) Phosphorus, External 2.8 [facility] Albumin, External 3.5 [facility] BUN, External 39 [facility] Chloride, External 110 [facility] Creatinine, External 1.9 [facility] Potassium, External 4.6 [facility] GFR, Calculated, External 33.94 [facility] Calculated Calcium, External [facility] Calcium, External 9.1 [facility] Sodium, External 145 [facility] CO2, External 26.2 [facility] Blood VENOUS BLOOD / Unknown 10/14/2021 13:00 EDT us Historical Provider PACKAGES & DNA PROBE HERBERTH PAUL Final Result [facility] documented in this encounter Visit Diagnoses Not on filedocumented in this encounter Care Teams Electronic Health Records Specialist Relationship Specialty Start Date End Date Henry Lehman MD [address] [place] [address] PCP - General 11/22/18 documented as of this encounter
--- OUTSIDE RECORDS SUMMARY | 2024-04-05 13:13 | XMS_ITS | Encounter Summary ---
Author Organization [facility] Address [address] [place] [address] Care Team Providers Care Mill Turner Name Role Phone Henry Lehman MD Primary Care Provider [phone] Reason for Referral * Laboratory Services (Routine) - New Request Specialty Diagnoses / Procedures Referred By Contac t Referred To Contact Diagnoses Stage 3b chronic kidney disease ([facility]) Procedures PROTEIN, TOTAL, RANDOM, URINE Manisha Brady MD Phone: tel: fax: Referral ID Status Reason Start Date Expiration Date V isits Requested Visits Authorized [id number] New Request 10/30/2021 1 1 * Laboratory Services (Routine) - New Request Specialty Diagnoses / Procedures Referred By Contac t Referred To Contact Diagnoses Stage 3b chronic kidney disease ([facility]) Procedures CREATININE, URINE RANDOM Manisha Brady MD Phone: tel: fax: Referral ID Status Reason Start Date Expiration Date V isits Requested Visits Authorized [id number] New Request 10/30/2021 1 1 * Laboratory Services (Routine) - New Request Specialty Diagnoses / Procedures Referred By Contac t Referred To Contact Diagnoses Stage 3b chronic kidney disease ([facility]) Procedures PTH INTACT Manisha Brady MD Phone: tel: fax: Referral ID Status Reason Start Date Expiration Date V isits Requested Visits Authorized [id number] New Request 10/30/2021 1 1 * Laboratory Services (Routine) - New Request Specialty Diagnoses / Procedures Referred By Contac t Referred To Contact Diagnoses Stage 3b chronic kidney disease ([facility]) Procedures NEPHROLOGY PROFILE (INCLUDES BUN, CREATININE, CALCULATED GFR, ELECTROLYTES, CALCIUM, PHOSPHORUS, ALBUMIN) Manisha Brady MD Phone: tel: fax: Referral ID Status Reason Start Date Expiration Date V isits Requested Visits Authorized [id number] New Request 10/30/2021 1 1 * Laboratory Services (Routine) - New Request Specialty Diagnoses / Procedures Referred By Contac t Referred To Contact Diagnoses Stage 3b chronic kidney disease ([facility]) Procedures COMPLETE BLOOD COUNT Manisha Brady MD Phone: tel: fax: Referral ID Status Reason Start Date Expiration Date V isits Requested Visits Authorized [id number] New Request 10/30/2021 1 1 Reason for Visit * Reason Comments Chronic Kidney Disease Encounter Details Date Type Department Care Team (Late st Contact Info) Description 10/30/2021 10:20 EDT Office Visit [facility] Nephrology - [address] [phone] Manisha Brady MD [address] [place] [address], Level [address] [place] [phone] Stage 3b chronic kidney disease (HCC) (Primary Dx) Social History Tobacco Use Types [...] Sign Reading Time Taken Comments Blood Pressure 150/69 10/30/2021 0957 EDT Pulse 62 10/30/202157 EDT Temperature - - Respiratory Rate - - Oxygen Saturation - - Inhaled Oxygen Concentration - - Weight 78.5 kg (173 lb) 10/30/2021 0957 EDT Height 167 cm (5' 5.75) 10/30/2021 0957 EDT Body Mass Index 28.14 10/30/2021 0957 EDT documented in this encounter Functional Status [...] documented in this encounter Progress Notes * Manisha Brady MD - 10/30/2021 1020 EDT Images from the original note were not included. Nephrology Clinic Progress Note (Est Patient) Henry Romaine Fallon Date of Visit: 10/30/2021 Current symptoms, medications, vital signs, and recent laboratory data were being reviewed. Reason for Visit: Anup Stanton is being seen in follow-up for chronic kidney disease in the setting of hypertension Chronic Kidney Disease Stage III Patient Active Problem List Diagnosis ??? Stage 3b chronic kidney disease (HCC) ??? Essential hypertension Trajectory of eGFR: ?? The patient was last seen 21years ago. ?? Changes to therapy made at that time or since the last visit?: No ?? Since the last visit, there have been no intercurrent illnesses or hospitalizations. ?? Today, the patient has no complaints. He is very active, walking 1-2 miles daily, working in garden. He had a bladder stone removed over the past year and is followed by Urology ASSESSMENT: Mr. Stanton is a 86 y.o. 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 The kidney disease is not progressing. Over the past 4 years, his GFR has fallen 3 ml/min. Hypertension; on nifedipine, losartan, hydrochlorothiazide. Well controlled at home with SBP 120-125 (per patient). Electrolytes: normal Anemia of chronic kidney disease: none PLAN: Diagnostic studies ordered this visit: Therapeutic: 1. Medications to have a change in dose: 2. Medications to be added: 3. Medications to be discontinued: 4. Other: Follow-up: in approximately 12 months with our nurse practitioner. Subjective: With regard to symptoms related to chronic kidney disease, the patient's energy level is the same and his appetite is good without dysgeusia. He has no overt uremic symptoms including nausea, vomiting, generalized pruitus, insomnia. There is no change in the amount, color, or frequency of micturition. At this time, he denies any chest pain, shortness of breath, or peripheral edema. Anup does no t have dyspnea on exertion, orthopnea, or PND. In addition, there are no constitutional symptoms, skin rash, joint pains, headache, abdominal pain, nausea, vomiting, constipation, diarrhea, flank pain, dysuria, gross hematuria, focal weakness, ordifficulty walking. Review of Systems: A complete ten-point review of systems was obtained. The pertinent positives andnegatives are noted above and all other systems are negative. Medications: Prior to this visit, the patient is taking the following medications. Current Outpatient Medications Medication Sig Dispense Refill [...] No current facility-administered medications for this visit. Physical Examination (limited): BP (!) 150/69 (BP Cuff Location: Right arm, BP Patient Position: Sitting, BP Cuff Sizes: Adult, large) Pulse 62 Ht 167 cm (65.75) Wt 78.5 kg (173 lb) BMI 28.14 kg/m?? Constitutional: He is comfortable and in no acute distress. Extracellular volume is assessed as normal. Wt Readings from Last 3 Encounters: 10/30/21 78.5 kg (173 lb) 10/31/20 77.1 kg (169 lb 14.4 oz) 11/23/18 74.8 kg (165 lb) BP (!) 150/69 (BP Cuff Location: Right arm, BP Patient Position: Sitting, BP Cuff Sizes: Adult, large) Pulse 62 Ht 167 cm (65.75) Wt 78.5 kg (173 lb) BMI 28.14 kg/m?? Psychiatric: Alert and oriented x 3, answers questions appropriately Respiratory: normal respiratory pattern, able to talk in full sentences Neurologic: Grossly non-focal (facial symmetry). No dysarthria. Vascular Access: A dialysis access is not present. Labs: UrinalysisNo results found for this visit on 10/30/21. Kidney Function: Lab Results Component Value Date CREATININEEX 1.9 10/14/2021 CREATININEEX 1.8 10/10/2020 CREATININEEX 1.79 12/11/2019 CREATININEEX 1.71 11/11/2018 CREATININEEX 1.82 06/06/2018 CREATININEEX 1.76 05/28/2017 Lab Results Component Value Date CALCGFREXT 33.94 10/14/2021 CALCGFREXT 36.21 10/10/2020 CALCGFREXT 36.54 12/11/2019 Proteinuria: Lab Results Component Value Date UABCR 6.5 06/09/2018 ALBUMINEXT 3.5 10/14/2021 ALBUMINEXT 4.1 10/10/2020 ALBUMINEXT 3.7 12/11/2019 Electrolytes: Lab Results Component Value Date KEXT 4.6 10/14/2021 CO2EXT 26.2 10/14/2021 Hematology: Lab Results Component Value Date HGBEXTA 13.5 10/15/2021 Mineral and Bone Disorder (CKD-MBD): Lab Results Component Value Date PHOSEXT 2.8 10/14/2021 PTH 142 (H) 10/10/2020 PTHEXT 94 11/11/2018 RISK FACTORS FOR PROGRESSION OF CKD: Proteinuria (791.0): none He is on an ACEI or ARB. Double therapy with a mineralocorticoid antagonist (MRA):No Hypertension (404.90): The most recent BP's are: BP Readings from Last 3 Encounters: 10/30/21 (!) 150/69 10/31/20 123/61 11/23/18 114/59 Target BP <130 systolic. He is at target. Diabetes: No results found for: HGBA1C COMPLICATIONS OF CKD Anemia of chronic kidney disease : Treatment started at hgb <10 g/dL. No treatment indicated at this time. Metabolic bone disease: . Vitamin D (activated) started at PTH levels >3x ULN. OTHER: Gout:No results found for: URICACID Lipid: Statins appear to improve overall survival in patients with CKD stages III-V. Patient is on a statin Yes MANISHA BRADY MD 10/30/2021 10:49 documented in this encounter Plan of Treatment Upcoming Encounters Date Type Department Care Team (Late st Contact Info) Description 05/02/2024 9:30 EST Office Visit [address] [phone] Henry Mercado MD [address] [place] [phone] 06/13/2024 9:30 EST Office Visit [facility] Ophthalmology [address] [phone] Henry Mercado MD [address] [place] [phone] documented as of this encounter Results * PROTEIN, TOTAL, RANDOM, URINE (10/07/2022) Tot Prot,Ur Random, External 24.1 [facility] Urine URINE SPECIMEN COLLECTION, CLEAN CATCH / Unknown 10/07/2022 us Manisha Brady MD URINALYSIS ORDERABLES Fin al Result Performing Organization Address [facility] Co de Phone Number [facility] * CREATININE, URINE RANDOM (10/07/2022) Creatinine, Random U (UCRR), External 293.37 mg/dL [facility] Urine URINE SPECIMEN COLLECTION, CLEAN CATCH / Unknown 10/07/2022 Manisha Brady MD URINALYSIS ORDERABLES Fin al Result Performing Organization Address [facility] Co de Phone Number [facility] * PTH INTACT (10/07/2022) PTH, External 198 [facility] Blood VENOUS BLOOD / Unknown 10/07/2022 Manisha Brady MD CHEMISTRY & BLOOD GAS ORD ERABLES Final Result Performing Organization Address [facility] Co de Phone Number [facility] * NEPHROLOGY PROFILE (INCLUDES BUN, CREATININE, CALCULATED GFR, ELECTROLYTES, CALCIUM, PHOSPHORUS, ALBUMIN) (10/07/2022) Phosphorus, External 2.8 [facility] Albumin, External 3.6 [facility] BUN, External 36 mg/dL [facility] Chloride, External 105 mmol/L [facility] Creatinine, External 2.0 mg/dL [facility] Potassium, External 4.2 mmol/L [facility] GFR, Calculated, External 32.10 [facility] Calculated Calcium, External [facility] Calcium, External 9.4 mg/dL [facility] Sodium, External 140 mmol/L [facility] CO2, External 28.4 mmol/L [facility] Blood VENOUS BLOOD / Unknown 10/07/2022 us Manisha Brady MD PACKAGES & DNA PROBE HERBERTH PAUL Final Result Performing Organization Address [facility] Co de Phone Number [facility] * COMPLETE BLOOD COUNT (10/07/2022) HCT, External 42.3 [facility] MCH, External 32.0 g/dL [facility] MCV, External 95 [facility] MCHC, External 33.6 g/dL [facility] Hemoglobin, External 14.2 % [facility] WBC, External 7.94 [facility] RBC, External 4.44 [facility] PLT, External 307 [facility] RDW-CV, External 12.9 [facility] Blood VENOUS BLOOD / Unknown 10/07/2022 us Manisha Brady MD HEMATOLOGY & PF4 ORDERABL ES Final Result Performing Organization Address [facility] Co de Phone Number [facility] documented in this encounter Visit Diagnoses Diagnosis Stage 3b chronic kidney disease ([facility]CC-CMS)- Primary documented in this encounter Care Teams Mill Turner Relationship Specialty Start Date End Date Henry Lehman MD [address] [place] [address] PCP - General 11/22/18 documented as of this encounter
--- OUTSIDE RECORDS SUMMARY | 2024-04-05 13:13 | XMS_ITS | Encounter Summary ---
Author Organization [facility] Address [address] [place] [address] Care Team Providers Care Ripsawyer Name Role Phone Henry Lehman MD Primary Care Provider [phone] Encounter Details Date Type Department Care Team (Late st Contact Info) Description 06/18/2021 Lab Requisition [facility] Pathology & Laboratory Medicine - [address] [address] Outr Resulting Lab, Provider Social History Tobacco [...] Info) Description 05/02/2024 9:30 EST Office Visit [facility] Ophthalmology - [address] [phone] Henry Mercado MD [address] [place] [address] [address] [place] [phone] 06/13/2024 9:30 EST Office Visit [facility] Ophthalmology - [facility] [address], [place] [phone] Henry Mercado MD [address] [place] [phone] documented as of this encounter Procedures Procedure Name Priority Date/Time Associated Diagnosis Comments PSA TOTAL, DIAGNOSTIC Routine 06/17/2021 16:00 EST documented in this encounter Results * (ABNORMAL) PSA TOTAL, DIAGNOSTIC (06/17/2021 16:00 EST) PSA 12.4(H) 0.0 - 6.5 ng/mL 06/18/2021 17:49 EST [facility] Blood VENOUS BLOOD / Unknown 06/17/2021 16:00 EST 06/18/2021 16:58 EST Narrative [facility] - 06/18/2021 17:49 EST NOTE: Serum PSA concentration should not be interpreted as absolute evidence for the presence or absence of malignant disease. Assayed on Siemens ADVIA Centaur XPT using chemiluminescent technology.??Values obtained by using different assay methods cannot be used interchangeably. us Provider Outr Resulting Lab CHEMISTRY & BLOOD GA S ORDERABLES Final Result [facility] [address] [place] [address] documented in this encounter Visit Diagnoses Not on filedocumented in this encounter Care Teams Ripsawyer Relationship Specialty Start Date End Date Henry Lehman MD [address] [place] [address] PCP - General 11/22/18 documented as of this encounter
--- OUTSIDE RECORDS SUMMARY | 2024-04-05 13:13 | XMS_ITS | Encounter Summary ---
Author Organization [facility] Address [address] [place] [address] Care Team Providers Care Drug Regulatory Affairs Specialist Name Role Phone Henry Lehman MD Primary Care Provider [phone] Reason for Visit * Reason Comments Chronic Kidney Disease Encounter Details Date Type Department Care Team (Late st Contact Info) Description 10/31/2020 11:00 EDT Office Visit [facility] Nephrology - [address] [address] Naveed Brady MD 1 [facility], Level 2 [place] [phone] Stage 3b chronic kidney disease (Primary Dx) Social History Tobacco Use Types [...] Sign Reading Time Taken Comments Blood Pressure 123/61 10/31/2020 1055 EDT Pulse 47 10/31/2020 1055 EDT Temperature - - Respiratory Rate - - Oxygen Saturation - - Inhaled Oxygen Concentration - - Weight 77.1 kg (169 lb 14.4 oz) 10/31/2020 1055 EDT Height 167 cm (5' 5.75) 10/31/2020 1055 EDT Body Mass Index 27.63 10/31/2020 1055 EDT documented in this encounter Functional Status [...] documented in this encounter Progress Notes * Naveed Brady MD - 10/31/2020 1100 EDT Images from the original note were not included. Nephrology Clinic Progress Note (Est Patient) Henry Gavin Fallon Date of Visit: 10/31/2020 Current symptoms, medications, vital signs, and recent laboratory data were being reviewed. Reason for Visit: Anup Stanton is being seen in follow-up for chronic kidney disease in the setting of hypertension Chronic Kidney Disease Stage III There is no problem list on file for this patient. Trajectory of eGFR: ?? The patient was last seen [address] Dutta. ?? Changes to therapy made at that time or since the last visit?: No ?? Since the last visit, there have been no intercurrent illnesses or hospitalizations. ?? Today, the patient has no complaints. He is very active, walking 1-2 miles daily, working in garden. ASSESSMENT: Mr. Stanton is a 85 y.o. 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 The kidney disease is not progressing. Hypertension; on amlodipine, losartan, hydrochlorothiazide. Well controlled. Electrolytes: normal Anemia of chronic kidney disease: none PLAN: Diagnostic studies ordered this visit: Therapeutic: 1. Medications to have a change in dose: 2. Medications to be added: 3. Medications to be discontinued: 4. Other: Follow-up: in approximately 12 months; earlier if needed. Subjective: With regard to symptoms related to [...] for this visit. Physical Examination (limited): BP 123/61 (BP Cuff Location: Right arm, BP Patient Position: Sitting, BP Cuff Sizes: Adult, regular) Pulse (!) 47 Ht 167 cm (65.75) Wt 77.1 kg (169 lb 14.4 oz) BMI 27.63 kg/m?? Constitutional: He is comfortable and in no acute distress. Extracellular volume is assessed as normal. Wt Readings from Last 3 Encounters: 10/31/20 77.1 kg (169 lb 14.4 oz) 11/23/18 74.8 kg (165 lb) 06/09/18 75.6 kg (166 lb 11.2 oz) BP 123/61 (BP Cuff Location: Right arm, BP Patient Position: Sitting, BP Cuff Sizes: Adult, regular) Pulse (!) 47 Ht 167 cm (65.75) Wt 77.1 kg (169 lb 14.4 oz) BMI 27.63 kg/m?? Psychiatric: Alert and oriented x 3, answers questions appropriately Respiratory: normal respiratory pattern, able to talk in full sentences Neurologic: Grossly non-focal (facial symmetry). No dysarthria. Vascular Access: A dialysis access is not present. Labs: UrinalysisNo results found for this visit on 10/31/20. Kidney Function: Lab Results Component Value Date CREATININEEX 1.8 10/10/2020 CREATININEEX 1.79 12/11/2019 CREATININEEX 1.71 11/11/2018 CREATININEEX 1.82 06/06/2018 CREATININEEX 1.76 05/28/2017 CREATININEEX 1.47 05/27/2016 Lab Results Component Value Date CALCGFREXT 36.21 10/10/2020 CALCGFREXT 36.54 12/11/2019 CALCGFREXT 38.61 11/11/2018 Proteinuria: Lab Results Component Value Date UABCR 6.5 06/09/2018 ALBUMINEXT 4.1 10/10/2020 ALBUMINEXT 3.7 12/11/2019 ALBUMINEXT 3.8 11/11/2018 Electrolytes: Lab Results Component Value Date KEXT 4.1 10/10/2020 CO2EXT 27.3 10/10/2020 Hematology: Lab Results Component Value Date HGBEXTA 14.4 10/10/2020 Mineral and Bone Disorder (CKD-MBD): Lab Results Component Value Date PHOSEXT 3.2 10/10/2020 PTH 142 (H) 10/10/2020 PTHEXT 94 11/11/2018 RISK FACTORS FOR PROGRESSION OF CKD: Proteinuria (791.0): none He is on an ACEI or ARB. Double therapy with a mineralocorticoid antagonist (MRA):No Hypertension (404.90): The most recent BP's are: BP Readings from Last 3 Encounters: 10/31/20 123/61 11/23/18 114/59 06/09/18 138/70 Target BP <130 systolic. He is at [...] III-V. Patient is on a statin Yes Naveed Brady MD 10/31/2020 11:24 documented in this encounter Plan of Treatment Upcoming Encounters Date Type Department Care Team (Late st Contact Info) Description 05/02/2024 9:30 EST Office Visit [facility] Ophthalmology [address] [phone] Henry Mercado MD [address] [place] [phone] 06/13/2024 9:30 EST Office Visit [address] [phone] Henry Mercado MD [address] [place] [phone] documented as of this encounter Visit Diagnoses Diagnosis Stage 3b chronic kidney disease ([facility])- Primary documented in this encounter Discontinued Medications Medication Sig Discontinue Reason Start Date End Da te aspirin 81 mg EC tablet Take 81 mg by mouth daily. Therapy completed 10/31/2020 losartan-hydrochlorothiaz azalea (HYZAAR) 100-25 mg per tablet Take 1 Tab by mouth daily. Alternate therapy 10/31/2020 meclizine (ANTIVERT) 25 mg tablet Take 25 mg by mouth 3 times daily as needed. Therapy completed 10/31/2020 documented as of this encounter Historical Medications * This list may reflect changes made after this encounter. hydroCHLOROthiazi de (HYDRODIURIL) 25 mg tablet Take 1 Tablet by mouth daily. losartan (COZAAR) 100 mg tablet Take 100 mg by mouth daily. added in this encounter Care Teams Drug Regulatory Affairs Specialist Relationship Specialty Start Date End Date Henry Lehman MD [address] [place] [address] PCP - General 11/22/18 documented as of this encounter
--- OUTSIDE RECORDS SUMMARY | 2024-04-05 13:13 | XMS_ITS | Encounter Summary ---
Author Organization [facility] Address [address] [place] [address] Care Team Providers Care Rn Examiner Name Role Phone Henry Lehman MD Primary Care Provider [phone] Encounter Details Date Type Department Care Team (Late st Contact Info) Description 07/16/2022 Lab Requisition [facility] Pathology & Laboratory Medicine - [address] [address] Outr Resulting Lab, Provider Social History Tobacco [...] Info) Description 05/02/2024 9:30 EST Office Visit [facility] Ophthalmology - [address] [phone] Henry Mercado MD [address] [place] [address] 5 [place] [phone] 06/13/2024 9:30 EST Office Visit [facility] Ophthalmology - [facility] [address] [place], [place] [phone] Henry Mercado MD [address] [place] [phone] documented as of this encounter Procedures Procedure Name Priority Date/Time Associated Diagnosis Comments PSA TOTAL, DIAGNOSTIC Routine 07/15/2022 14:10 EST documented in this encounter Results * (ABNORMAL) PSA TOTAL, DIAGNOSTIC (07/15/2022 14:10 EST) PSA 13.3(H) <=6.5 ng/mL 07/16/2022 18:04 EST [facility] Blood VENOUS BLOOD / Unknown 07/15/2022 14:10 EST 07/16/2022 16:53 EST Narrative [facility] - 07/16/2022 18:04 EST NOTE: Serum PSA concentration should not be interpreted as absolute evidence for the presence or absence of malignant disease. Assayed on Siemens ADVIA Centaur XPT using chemiluminescent technology.??Values obtained by using different assay methods cannot be used interchangeably. us Provider Outr Resulting Lab CHEMISTRY & BLOOD GA S ORDERABLES Final Result [facility] [address] [place] [address] documented in this encounter Visit Diagnoses Not on filedocumented in this encounter Care Teams Rn Examiner Relationship Specialty Start Date End Date Henry Lehman MD [address] [place] [address] PCP - General 11/22/18 documented as of this encounter
--- OUTSIDE RECORDS SUMMARY | 2024-04-05 13:13 | XMS_ITS | Encounter Summary ---
Author Organization [facility] Address [address] [place] [address] Care Team Providers Care Brick Paver Name Role Phone Henry Lehman MD Primary Care Provider [phone] Encounter Details Date Type Department Care Team (Late st Contact Info) Description 10/15/2020 Abstract [facility] Nephrology - [address] [address] Naveed Brady MD 1 [facility], Level 2 [place] [phone] Social History Tobacco Use Types Packs/Day Years [...] 05/02/2024 9:30 EST Office Visit [facility] Ophthalmology [address] [phone] Henry Mercado MD [address] [place] [phone] 06/13/2024 9:30 EST Office Visit [address] [phone] Henry Mercado MD [address] [place] [phone] documented as of this encounter Procedures Procedure Name Priority Date/Time Associated Diagnosis Comments NEPHROLOGY PROFILE (INCLUDES BUN, CREATININE, CALCULATED GFR, ELECTROLYTES, CALCIUM, PHOSPHORUS, ALBUMIN) Routine 10/10/2020 8:00 EDT PROFILE IRON STUDIES (INCLUDES IRON, IBC, AND FERRITIN) Routine 10/10/2020 8:00 EDT URINE DRHUEAH-DY-FMFPUOENW E RATIO (ACR) Routine 10/10/2020 8:00 EDT COMPLETE BLOOD COUNT Routine 10/10/2020 8:00 EDT documented in this encounter Results * URINE WZEZQOP-EW-RUSVLMDPRJ RATIO (ACR) (10/10/2020 8:00 EDT) Microalb ug/mg Crea, External 23.9 [facility] Microalb mg/dl, External 24.4 [facility] Creatinine, Random U (UCRR), External 102.17 [facility] Urine URINE SPECIMEN COLLECTION, CLEAN CATCH / Unknown 10/10/2020 8:00 EDT us Historical Provider CHEMISTRY & BLOOD GAS ORD ERABLES Final Result [facility] * DIALYSIS IRON (INCLUDES IRON, IBC, AND FERRITIN) - NEPHROLOGY USE ONLY (10/10/2020 8:00 EDT) Ferritin, External 94 [facility] Iron, External 118 [facility] TIBC, External 338 [facility] Iron Saturation, External 35 [facility] Blood VENOUS BLOOD / Unknown 10/10/2020 8:00 EDT us Historical Provider MD CHEMISTRY & BLOOD GAS ORD ERABLES Final Result [facility] * NEPHROLOGY PROFILE (INCLUDES BUN, CREATININE, CALCULATED GFR, ELECTROLYTES, CALCIUM, PHOSPHORUS, ALBUMIN) (10/10/2020 8:00 EDT) Phosphorus, External 3.2 [facility] Albumin, External 4.1 [facility] BUN, External 41 [facility] Chloride, External 105 [facility] Creatinine, External 1.8 [facility] Potassium, External 4.1 [facility] GFR, Calculated, External 36.21 [facility] Calculated Calcium, External [facility] Calcium, External 9.4 [facility] Sodium, External 140 [facility] CO2, External 27.3 [facility] Blood VENOUS BLOOD / Unknown 10/10/2020 8:00 EDT us Historical Provider PACKAGES & DNA PROBE ORDE RABLES Final Result [facility] * COMPLETE BLOOD COUNT (10/10/2020 8:00 EDT) HCT, External 43.9 [facility] MCH, External 30.9 [facility] MCV, External 94.2 [facility] MCHC, External 32.8 [facility] Hemoglobin, External 14.4 [facility] WBC, External 7.39 [facility] RBC, External 4.66 [facility] PLT, External 260 [facility] RDW-CV, External 13.1 [facility] Blood VENOUS BLOOD / Unknown 10/10/2020 8:00 EDT us Historical Provider HEMATOLOGY & PF4 ORDERABL ES Final Result [facility] documented in this encounter Visit Diagnoses Not on filedocumented in this encounter Care Teams Brick Paver Relationship Specialty Start Date End Date Henry Lehman MD [address] [place] [address] PCP - General 11/22/18 documented as of this encounter
--- OUTSIDE RECORDS SUMMARY | 2024-04-05 13:13 | XMS_ITS | Encounter Summary ---
Author Organization [facility] Address [address] [place] [address] Care Team Providers Care Diabetes Nurse Name Role Phone Henry Lehman MD Primary Care Provider [phone] Encounter Details Date Type Department Care Team (Late st Contact Info) Description 11/23/2018 Abstract [facility] Nephrology - [address] [address] Dayday Dutta MD [address] [place] [phone] Social History Tobacco Use Types Packs/Day Years [...] 05/02/2024 9:30 EST Office Visit [facility] Ophthalmology - [facility] [place] [address] [place] [address] Henry Mercado MD [address] [place] [address] 5 [place] [phone] 06/13/2024 9:30 EST Office Visit [facility] Ophthalmology - [address] [phone] Henry Mercado MD [address] [place] [phone] documented as of this encounter Visit Diagnoses Not on filedocumented in this encounter Care Teams Diabetes Nurse Relationship Specialty Start Date End Date Henry Lehman MD [address] [place] [address] PCP - General 11/22/18 documented as of this encounter
--- OUTSIDE RECORDS SUMMARY | 2024-04-05 13:13 | XMS_ITS | Encounter Summary ---
Author Organization [facility] Address [address] [place] [address] Care Team Providers Care Guyline Operator Name Role Phone Henry Lehman MD Primary Care Provider [phone] Encounter Details Date Type Department Care Team (Late st Contact Info) Description 03/15/2024 Lab Requisition [facility] Pathology & Laboratory Medicine - [address] [address] Scott Garcia, [address] [place] [phone] Neoplasm of unspecified behavior of bone, soft tissue, and skin Social History Tobacco Use Types Packs/Day [...] Description 05/02/2024 9:30 EST Office Visit [facility] Ophthalmology [address] [phone] Henry Mercado MD [address] [place] [phone] 06/13/2024 9:30 EST Office Visit [facility] Ophthalmology [address] [phone] Henry Mercado MD [address] [place] [phone] documented as of this encounter Procedures Procedure Name Priority Date/Time Associated Diagnosis Comments SURGICAL PATHOLOGY Today 03/14/2024 13 :30 EDT Neoplasm of unspecified behavior of bone, soft tissue, and skin documented in this encounter Results * SURGICAL PATHOLOGY (03/14/2024 13:30 EDT) Note to Patient The following pathology results have been interpreted by your pathologist and may be available to you before your health provider has had the opportunity to review them. Please allow time for your provider to receive these results and explore management options, if applicable. 03/16/2024 15:53 T [facility] Final Diagnosis A. SKIN OF ABDOMEN, RIGHT, SHAVE BIOPSY: - Dermal scar. See comment. B. SKIN OF FOREARM, LEFT, SHAVE BIOPSY: - Hypertrophic actinic keratosis. - Lesion extends to biopsy edge and base. C. SKIN OF PRE-AURICULAR REGION, LEFT, SHAVE BIOPSY: - Squamous cell carcinoma, moderately differentiated, invasive. - Lesion extends to biopsy base. 03/16/2024 15:53 T [facility] Diagnosis Comment In specimen A, the etiology the scar is uncertain. 03/16/2024 15:53 [facility] Attestation By the signature below, the attending physician certifies that they have 1) personally conducted a gross and/or microscopic examination of the described specimen(s), and/or personally interpreted the results of laboratory testing of the described specimen(s), and 2) personally rendered or confirmed the above diagnosis. 03/16/2024 15:53 [facility] at 1553 Clinical History Abnormal skin growth; clinical diagnosis code: D49.2 03/16/2024 15:53 [facility] Gross Description A. Received [...] C1. [place] Dayday 03/16/2024 7:26 03/16/2024 15:53 [facility] Performing Lab [facility] 03/16/2024 15:53 [facility] Scanned Images 03/16/2024 15:53 [facility] Tissue SPECIMEN FROM SKIN / Unknown 03/14/2024 13:30 EDT 03/15/2024 20:47 EDT Tissue specimen (specimen) SPECIMEN FROM SKIN / Unknown 03/14/2024 13:30 EDT 03/15/2024 20:47 EDT Tissue specimen (specimen) SPECIMEN FROM SKIN / Unknown 03/14/2024 13:30 EDT 03/15/2024 20:47 EDT us Scott ETIENNE PATHOLOGY ORDERABLES Final Result [facility] [address] [place] [address] documented in this encounter Visit Diagnoses Diagnosis Neoplasm of unspecified behavior of bone, soft tissue, and skin documented in this encounter Care Teams Guyline Operator Relationship Specialty Start Date End Date Henry Lehman MD [address] [place] [address] PCP - General 11/22/18 documented as of this encounter
--- OUTSIDE RECORDS SUMMARY | 2024-04-05 13:13 | XMS_ITS | Encounter Summary ---
Author Organization [facility] Address [address] [place] [address] Care Team Providers Care Education Manager Name Role Phone Henry Lehman MD Primary Care Provider [phone] Encounter Details Date Type Department Care Team (Late st Contact Info) Description 07/19/2023 Lab Requisition [facility] Pathology & Laboratory Medicine - [facility] [address] [place] [address] Henry Lehman MD [address] [place], [place] [phone] Encounter for other general examination Social History Tobacco Use Types Packs/Day Years [...] Info) Description 05/02/2024 9:30 EST Office Visit [facility] Ophthalmology [address] [phone] Henry Mercado MD [address] [place] [phone] 06/13/2024 9:30 EST Office Visit [address] [phone] Henry Mercado MD [address] [place] [phone] documented as of this encounter Procedures Procedure Name Priority Date/Time Associated Diagnosis Comments SURGICAL PATHOLOGY Today 07/16/2023 11 :15 EST Encounter for other general examination documented in this encounter Results * SURGICAL PATHOLOGY (07/16/2023 11:15 EST) Note to Patient The following pathology results have been interpreted by your pathologist and may be available to you before your health provider has had the opportunity to review them. Please allow time for your provider to receive these results and explore management options, if applicable. 07/20/2023 15:29 [facility] Final Diagnosis A. SKIN OF TRUNK, LEFT, PUNCH BIOPSY: - Squamous cell carcinoma in situ, involving the biopsy peripheral edge. 07/20/2023 15:29 [facility] Attestation By the signature below, the attending physician certifies that they have 1) personally conducted a gross and/or microscopic examination of the described specimen(s), and/or personally interpreted the results of laboratory testing of the described specimen(s), and 2) personally rendered or confirmed the above diagnosis. 07/20/2023 15:29 [facility] at 1529 Clinical History L trunk flat red macule with slightly raised papule in the center (10 x 8 mm); SCC vs hemangioma vs other; clinical diagnosis code: C44.91 07/20/2023 15:29 EST [facility] Gross Description A. Received in formalin labelled with proper patient identification (initials F, B) and L abd is a punch biopsy of slater skin (0.5 cm in diameter by 0.7 cm in depth). On the skin surface there is a ill-defined slater-white flattened papule (0.4 x 0.4 cm). The specimen is inked, bisected and submitted entirely in A1. JAIMIE BATISTA(ASCP) 07/19/2023 17:25 07/20/2023 15:29 EST [facility] Performing Lab [facility] 07/20/2023 15:29 EST [facility] Scanned Images 07/20/2023 15:29 EST [facility] Tissue SPECIMEN FROM SKIN / Unknown 07/16/2023 11:15 EST 07/19/2023 16:21 EST us Henry Lehman MD PATHOLOGY ORDERABLES Final R esult [facility] [address] [place] [address] documented in this encounter Visit Diagnoses Diagnosis Encounter for other general examination documented in this encounter Care Teams Education Manager Relationship Specialty Start Date End Date Henry Lehman MD [address] [place] [address] PCP - General 11/22/18 documented as of this encounter
--- OUTSIDE RECORDS SUMMARY | 2024-04-05 13:13 | XMS_ITS | Encounter Summary ---
Author Organization [facility] Address [address] [place] [address] Care Team Providers Care Bun Machine Operator Name Role Phone Unknown, Provider MD Primary Care Provider Unava ilable Encounter Details Date Type Department Care Team (Late st Contact Info) Description 06/09/[address] [facility] Nephrology - [address] [address] Dayday Dutta MD [address] [place] [phone] Social History Tobacco Use Types Packs/Day Years [...] Info) Description 05/02/2024 9:[address] [facility] Ophthalmology - [address] [address] Henry Mercado MD [address] [facility], [facility] [address] [place] [phone] 06/13/2024 9:[address] [facility] Ophthalmology - [facility] [address] [place], [place] [phone] Henry Mercado MD [address] [facility], [facility] [address] [place] [phone] documented as of this encounter Procedures Procedure Name Priority Date/Time Associated Diagnosis Comments COMPLETE BLOOD COUNT Routine 06/06/2018 ALT Routine 06/06/2018 PHOSPHORUS Routine 06/06/2018 ALBUMIN Routine 06/06/2018 BASIC METABOLIC PANEL (BMP) Routine 06/06/2018 UA CHEMICAL ONLY Routine 09/29/2017 PROTEIN/CREATININE RATIO, URINE Routine 06/01/2017 BASIC METABOLIC PANEL (BMP) Routine 05/28/2017 COMPLETE BLOOD COUNT Routine 05/27/2016 LIPID PROFILE (INCLUDES CHOLESTEROL, TRIGLYCERIDES, HDL, LDL) Routine 05/27/2016 BASIC METABOLIC PANEL (BMP) Routine 05/27/2016 BASIC METABOLIC PANEL (BMP) Routine 05/29/2015 documented in this encounter Results * ALBUMIN (06/06/2018) Albumin, External 3.8 [facility] Blood specimen (specimen) 06/06/2018 us Historical Provider CHEMISTRY & BLOOD GAS ORD ERABLES Final Result Performing Organization Address City/[facility]/ZIP Co de Phone Number [facility] * ALT (06/06/2018) ALT, External 28 [facility] Blood specimen (specimen) 06/06/2018 Historical Provider CHEMISTRY & BLOOD GAS ORD ERABLES Final Result Performing Organization Address [facility]/ZIP Co de Phone Number [facility] * PHOSPHORUS (06/06/2018) Phosphorus, External 3.0 [facility] Blood specimen (specimen) 06/06/2018 Historical Provider CHEMISTRY & BLOOD GAS ORD ERABLES Final Result Performing Organization Address [facility] Co de Phone Number [facility] * BASIC METABOLIC PANEL (BMP) (06/06/2018) GFR, Calculated, External 35.93 [facility] Glucose, Serum, External 104 [facility] Calculated Calcium, External [facility] BUN, External 32 [facility] Calcium, External 9.3 [facility] Chloride, External 104 [facility] CO2, External 30.0 [facility] Creatinine, External 1.82 [facility] Fasting?, External [facility] Potassium, External 4.1 [facility] Sodium, External 141 [facility] Blood specimen (specimen) 06/06/2018 Historical Provider CHEMISTRY & BLOOD GAS ORD ERABLES Final Result Performing Organization Address City/[facility]/ZIP Co de Phone Number [facility] * COMPLETE BLOOD COUNT (06/06/2018) HCT, External 44.2 [facility] MCH, External 31.0 [facility] MCV, External 94.4 [facility] MCHC, External [facility] Hemoglobin, External 14.5 [facility] WBC, External 7.59 [facility] RBC, External 4.68 [facility] PLT, External 236 [facility] RDW-CV, External 13.1 [facility] Blood specimen (specimen) 06/06/2018 Historical Provider HEMATOLOGY & PF4 ORDERABL ES Final Result Performing Organization Address [facility] Co de Phone Number [facility] * UA CHEMICAL (DIPSTICK ONLY) (09/29/2017) Color UA, External light yellow [facility] Clarity UA, External clear [facility] Glucose UA, External neg [facility] Bilirubin UA, External neg [facility] Ketones UA, External neg [facility] Specific [place] UA, External 1.020 [facility] Blood UA, External neg [facility] pH UA, External 6 [facility] Protein UA, External trace [facility] Urobilinogen UA, External normal [facility] Nitrite UA, External neg [facility] Leukocyte Esterase UA, External neg [facility] Urine specimen (specimen) 09/29/2017 Historical Provider URINALYSIS ORDERABLES Fin al Result Performing Organization Address [facility]/ZIP Co de Phone Number [facility] * PROTEIN/CREATININE RATIO, URINE (06/01/2017) Protein, Total, Ur Random, External 11.6 [facility] Creatinine, Ur Random, External 103.23 [facility] UPRO mg/mg Cr, Ur External 0.11 [facility] Urine specimen (specimen) 06/01/2017 Historical Provider URINALYSIS ORDERABLES Fin al Result Performing Organization Address [facility]/ZIP Co de Phone Number [facility] * BASIC METABOLIC PANEL (BMP) (05/28/2017) GFR, Calculated, External 37.44 [facility] Glucose, Serum, External 98 [facility] Calculated Calcium, External [facility] BUN, External 35 [facility] Calcium, External 9.8 [facility] Chloride, External 105 [facility] CO2, External 30.1 [facility] Creatinine, External 1.76 [facility] Fasting?, External [facility] Potassium, External 4.2 [facility] Sodium, External 141 [facility] Blood specimen (specimen) 05/28/2017 us Historical Provider MD CHEMISTRY & BLOOD GAS ORD ERABLES Final Result Performing Organization Address [facility] Co de Phone Number [facility] * LIPID PROFILE (INCLUDES CHOLESTEROL, TRIGLYCERIDES, HDL, LDL) (05/27/2016) Cholesterol, External 158 [facility] Triglycerides, External 116 [facility] HDL, External 47 [facility] LDL, External 89 [facility] Chol/HDL Ratio, External [facility] Fasting?, External [facility] Blood specimen (specimen) 05/27/2016 us Historical Provider MD CHEMISTRY & BLOOD GAS ORD ERABLES Final Result [facility] * BASIC METABOLIC PANEL (BMP) (05/27/2016) GFR, Calculated, External 46.21 [facility] Glucose, Serum, External 87 [facility] Calculated Calcium, External [facility] BUN, External 22 [facility] Calcium, External 9.4 [facility] Chloride, External 103 [facility] CO2, External 32.2 [facility] Creatinine, External 1.47 [facility] Fasting?, External [facility] Potassium, External 4.2 [facility] Sodium, External 143 [facility] Blood specimen (specimen) 05/27/2016 Historical Provider CHEMISTRY & BLOOD GAS ORD ERABLES Final Result [facility] * COMPLETE BLOOD COUNT (05/27/2016) HCT, External 44.2 [facility] MCH, External 31.1 [facility] MCV, External 94.0 [facility] MCHC, External [facility] Hemoglobin, External 14.6 [facility] WBC, External 7.92 [facility] RBC, External 4.7 [facility] PLT, External 218 [facility] RDW-CV, External 13.4 [facility] Blood specimen (specimen) 05/27/2016 Historical Provider HEMATOLOGY & PF4 ORDERABL ES Final Result Performing Organization Address [facility]/ZIP Co de Phone Number [facility] * BASIC METABOLIC PANEL (BMP) (05/29/2015) GFR, Calculated, External 42.63 [facility] Glucose, Serum, External 102 [facility] Calculated Calcium, External [facility] BUN, External 25 [facility] Calcium, External 9.3 [facility] Chloride, External 106 [facility] CO2, External 30.1 [facility] Creatinine, External 1.58 [facility] Fasting?, External [facility] Potassium, External 4.3 [facility] Sodium, External 143 [facility] Blood specimen (specimen) 05/29/2015 us Historical Provider CHEMISTRY & BLOOD GAS ORD ERABLES Final Result [facility] documented in this encounter Visit Diagnoses Not on filedocumented in this encounter Historical Medications * This list may reflect changes made after this encounter. citalopram (CELEXA) 20 mg tablet Take 1 Tablet by mouth daily. NIFEdipine XL (PROCARDIA-XL) 60 mg tablet Take 1 Tablet by mouth daily. atorvastatin (LIPITOR) 20 mg tablet Take 1 Tablet by mouth daily. losartan-hydrochl orothiazide (HYZAAR) 100-25 mg per tablet Take 1 Tab by mouth daily. 10/31/2020 aspirin 81 mg EC tablet Take 81 mg by mouth daily. 10/31/2020 meclizine (ANTIVERT) 25 mg tablet Take 25 mg by mouth 3 times daily as needed. 10/31/2020 added in this encounter Care Teams Bun Machine Operator Relationship Specialty Start Date End Date Unknown, Provider, PCP - General 06/09/16 11/21/18 documented as of this encounter
--- OUTSIDE RECORDS SUMMARY | 2024-04-05 13:13 | XMS_ITS | Encounter Summary ---
Author Organization [facility] Address [address] [place] [address] Care Team Providers Care Western Philosophy Professor Name Role Phone Henry Lehman MD Primary Care Provider [phone] Encounter Details Date Type Department Care Team (Late st Contact Info) Description 09/12/2020 Orders Only [facility] Nephrology - [address] [address] Naveed Brady MD [address] [place], [place] [id number], [address] [place] [phone] Stage 3b chronic kidney disease (Primary Dx) [...] Info) Description 05/02/2024 9:30 EST Office Visit [facility] Ophthalmology [address] [phone] Henry Mercado MD [address] [place] [phone] 06/13/2024 9:30 EST Office Visit [address] [phone] Henry Mercado MD [address] [place] [phone] documented as of this encounter Visit Diagnoses Diagnosis Stage 3b chronic kidney disease ([facility])- Primary documented in this encounter Care Teams Western Philosophy Professor Relationship Specialty Start Date End Date Henry Lehman MD [address] [place] [address] PCP - General 11/22/18 documented as of this encounter
--- OUTSIDE RECORDS SUMMARY | 2024-04-05 13:13 | XMS_ITS | Encounter Summary ---
Author Organization [facility] Address [address] [place] [address] Care Team Providers Care Wrapper Layer And Examiner Soft Work Name Role Phone Henry Lehman MD Primary Care Provider [phone] Encounter Details Date Type Department Care Team (Late st Contact Info) Description 12/13/2019 Abstract [facility] Nephrology - [address] [address] Dayday Dutta MD [address] [place] [phone] Social History Tobacco Use Types Packs/Day Years [...] Info) Description 05/02/2024 9:30 EST Office Visit [facility] Ophthalmology - [address] [place] [address] Henry Mercado MD 111 [facility], [facility] [address] [place] [phone] 06/13/2024 9:30 EST Office Visit [facility] Ophthalmology - [facility] [address] [place], [place] [phone] Henry Mercado MD [address] [place] [phone] documented as of this encounter Procedures Procedure Name Priority Date/Time Associated Diagnosis Comments NEPHROLOGY PROFILE (INCLUDES BUN, CREATININE, CALCULATED GFR, ELECTROLYTES, CALCIUM, PHOSPHORUS, ALBUMIN) Routine 12/11/2019 COMPLETE BLOOD COUNT Routine 12/11/2019 documented in this encounter Results * COMPLETE BLOOD COUNT (12/11/2019) HCT, External 40.3 [facility] MCH, External 31.6 [facility] MCV, External 95.7 [facility] MCHC, External 33.0 [facility] Hemoglobin, External 13.3 [facility] WBC, External 7.49 [facility] RBC, External 4.21 [facility] PLT, External 244 [facility] RDW-CV, External 13.6 [facility] Blood VENOUS BLOOD / Unknown 12/11/2019 us Historical Provider HEMATOLOGY & PF4 ORDERABL ES Final Result [facility] [address] [place] [address] * NEPHROLOGY PROFILE (INCLUDES BUN, CREATININE, CALCULATED GFR, ELECTROLYTES, CALCIUM, PHOSPHORUS, ALBUMIN) (12/11/2019) Phosphorus, External 2.9 [facility] Albumin, External 3.7 [facility] BUN, External 41 [facility] Chloride, External 105 [facility] Creatinine, External 1.79 [facility] Potassium, External 4.1 [facility] GFR, Calculated, External 36.54 [facility] Calculated Calcium, External [facility] Calcium, External 8.8 [facility] Sodium, External 139 [facility] CO2, External 26.1 [facility] Blood VENOUS BLOOD / Unknown 12/11/2019 us Historical Provider PACKAGES & DNA PROBE HERBERTH PAUL Final Result Performing Organization Address City/State/[facility] Co de Phone Number [facility] [address] [place] [address] documented in this encounter Visit Diagnoses Not on filedocumented in this encounter Care Teams Wrapper Layer And Examiner Soft Work Relationship Specialty Start Date End Date Henry Lehman MD [address] [place] [address] PCP - General 11/22/18 documented as of this encounter
--- OUTSIDE RECORDS SUMMARY | 2024-04-05 13:13 | XMS_ITS | Encounter Summary ---
Author Organization [facility] Address [address] [place] [address] Care Team Providers Care Technical Intern Name Role Phone Henry Lehman MD Primary Care Provider [phone] Reason for Visit * Reason Comments Chronic Kidney Disease Encounter Details Date Type Department Care Team (Late st Contact Info) Description 11/23/2018 11:00 EDT Office Visit [facility] Nephrology - [address] [address] Dayday Dutta MD [address] [place] [phone] CKD (chronic kidney disease) stage 3, GFR 30-59 ml/min ([facility]) (Primary Dx) Social History Tobacco Use Types Packs/Day Years Used Date Smoking Tobacco: Former Smokeless Tobacco: Never Sex and Gender Information Value Date Recorded Sex Assigned at Not on file Legal Sex Male 16:26 EST Gender Identity Not on file Sexual Orientation Not on file documented as of this encounter Last Filed Vital Signs Vital Sign Reading Time Taken Comments Blood Pressure 114/59 11/23/2018 1048 EDT Pulse 56 11/23/2018 1048 EDT Temperature - - Respiratory Rate - - Oxygen Saturation - - Inhaled Oxygen Concentration - - Weight 74.8 kg (165 lb) 11/23/2018 1048 EDT Height 167 cm (5' 5.75) 11/23/2018 1048 EDT Body Mass Index 26.83 11/23/2018 1048 EDT documented in this encounter Functional Status [...] * Patient Instructions* Dayday Dutta MD - 11/23/2018 11:00 EDT - Continue your present medications - Avoid NSAIDs (e.g., ibuprofen, Advil, Motrin, Aleve, Naprosyn) - Get blood tests 7-10 days before your next appointment - Follow-up with me in 8 months documented in this encounter Progress Notes * Dayday Dutta MD - 11/23/2018 1100 EDT Images from the original note were not included. Subjective: Patient ID: Anup Stanton is an 83 y.o. male. Chief Complaint Patient presents with ??? Chronic Kidney Disease HPI: Mr. Stanton is being seen in follow-up at the request of Dr. Lehman for the problem of chronic kidney disease. He comes to the office today accompanied by his of 60 years. Other than having to drive 110 miles to see me, he has no complaints of symptoms. Indeed, he has felt well and done well since his 1st visit with me this past May. His energy and appetite are good and he does not get fatigued or have shortness of breath. He had his blood drawn10 days ago, and his creatinine was 1.71 mg/dL, which is a bit better than it was in May. He continues to be very active and walks 2-3 miles per day outside or on his treadmill. He has no complaints referable to the kidneys or urinary tract. Social Social History Socioeconomic History ??? Marital status: Spouse name: Not on file ??? Number of children: Not on file ??? Years of education: Not on file ??? Highest education level: Not on file Occupational History ??? Not on file Social Needs ??? Financial resource strain: Not on file ??? Food insecurity: Worry: Not on file Inability: Not on file ??? Transportation needs: Medical: Not on file Non-medical: Not on file Tobacco Use ??? Smoking status: Former Smoker ??? Smokeless tobacco: Never Used Substance and Sexual Activity ??? Alcohol use: Not on file ??? Drug use: Not on file ??? Sexual activity: Not on file Lifestyle ??? Physical activity: Days per week: Not on file Minutes per session: Not on file ??? Stress: Not on file Relationships ??? Social connections: Talks on phone: Not on file Gets together: Not on file Attends moravian service: Not on file Active member of club or organization: Not on file Attends meetings of clubs or organizations: Not on file Relationship status: Not on file ??? Intimate partner violence: Fear of current or ex partner: Not on file Emotionally abused: Not on file Physically abused: Not on file Forced sexual activity: Not on file Other Topics Concern ??? Not on file Social History Narrative ??? Not on file Current Outpatient Medications on File Prior to Visit Medication Sig Dispense Refill ??? aspirin 81 mg EC tablet Take 81 mg by mouth daily. ??? atorvastatin (LIPITOR) 20 mg tablet Take 20 mg by mouth daily. ??? citalopram (CELEXA) 20 mg tablet Take 20 mg by mouth daily. ??? losartan-hydrochlorothiazide (HYZAAR) 100-25 mg per tablet Take 1 Tab by mouth daily. ??? meclizine (ANTIVERT) 25 mg tablet Take 25 mg by mouth 3 times daily as needed. ??? NIFEdipine XL (PROCARDIA-XL) 60 mg tablet Take 60 mg by mouth daily. No current facility-administered medications on file prior to visit. Allergies Allergen Reactions ??? Lisinopril Review of Systems Constitutional: Negative. HENT: Negative. Eyes: Negative. Respiratory: Negative. Cardiovascular: Negative. Gastrointestinal: Negative. Genitourinary: Negative. Negative for dysuria, flank pain, frequency, hematuria and urgency. Musculoskeletal: Negative. Skin: Negative. Neurological: Negative. Endo/Heme/Allergies: Negative. Psychiatric/Behavioral: Negative. - See HPI Objective: BP 114/59 (BP Cuff Location: Right arm, Patient Position: Sitting, BP Cuff Sizes: Adult, regular) Pulse 56 Ht 167 cm (65.75) Wt 74.8 kg (165 lb) BMI 26.83 kg/m?? Physical Exam Constitutional: He is oriented to person, place, and time. He appears well- developed and well-nourished. No distress. HENT: Mouth/Throat: Mucous membranes are moist. Eyes: Conjunctivae are normal. No scleral icterus. Neck: Neck supple. Cardiovascular: Normal rate, regular rhythm and normal heart sounds. Exam reveals no gallop and no friction rub. No murmur heard. Pulmonary/Chest: Effort normal and breath sounds normal. No respiratory distress. He has no wheezes. He has no rales. Abdominal: Soft. Bowel sounds are normal. He exhibits no distension. Musculoskeletal: Normal range of motion. He exhibits no edema. Neurological: He is alert and oriented to person, place, and time. Skin: Skin is warm and dry. No rash noted. Psychiatric: He has a normal mood and affect. His behavior is normal. Judgment and thought content normal. Vitals reviewed. Labs: Ref. Range 11/11/2018 00:00 Sodium, External Unknown 143 Potassium, External Unknown 4.3 CO2, External Unknown 28.8 Chloride, External Unknown 107 BUN, External Unknown 39 Creatinine, External Unknown 1.71 GFR, Calculated, External Unknown 38.61 Calcium, External Unknown 9.1 Phosphorus, External Unknown 2.8 Albumin, External Unknown 3.8 Ref. Range 11/11/2018 00:00 WBC, External Unknown 6.51 Hemoglobin, External Unknown 14.6 HCT, External Unknown 45.4 PLT, External Unknown 234 Urine total protein to creatinine ratio = 0.184 g/g Urine albumin to creatinine ratio = 16.3 mg/g Assessment/Plan: Stage 3 Chronic Kidney Disease: Mr. Stanton has an eGFR of 39 mL/min per 1.73m^2. His only risk factor for CKD is a history of hypertension, and his blood pressure is now well controlled on a 2-drug regimen that includes and ARB. His estimated risk to progress to ESRD is extremely low, as shown: Proteinuria: None or normal albuminuria. Blood Pressure: Normal ECF Fluid Volume: Clinically euvolemic. Electrolytes: Normal Anemia: Not present. CKD-MBD: No measurable abnormalities. Need for Renal Replacement Therapy: No need for dialysis or transplant planning at this time. Other: Statin therapy has been shown to benefit patients with stage 3 (or worse) CKD, and he is already onatorvastatin. RECOMMENDATIONS: - Continue present medications - Avoid NSAIDs (e.g., ibuprofen, Advil, Motrin, Aleve, Naprosyn) - Get blood tests 7-10 days before next appointment - Follow-up with me in 8 months documented in this encounter Plan of Treatment Upcoming Encounters Date Type Department Care Team (Late st Contact Info) Description 05/02/2024 9:30 EST Office Visit [address] [id number] Henry Mercado MD [address] [place] [phone] 06/13/2024 9:30 EST Office Visit [address] [phone] Henry Mercado MD [address] [place] [phone] documented as of this encounter Procedures Procedure Name Priority Date/Time Associated Diagnosis Comments NEPHROLOGY PROFILE (INCLUDES BUN, CREATININE, CALCULATED GFR, ELECTROLYTES, CALCIUM, PHOSPHORUS, ALBUMIN) Routine 11/11/2018 PTH INTACT Routine 11/11/2018 URINE [id number] RATIO (ACR) Routine 11/11/2018 PROTEIN, TOTAL, RANDOM, URINE Routine 11/11/2018 CREATININE, URINE RANDOM Routine 11/11/2018 COMPLETE BLOOD COUNT Routine 11/11/2018 documented in this encounter Results * ALBUMIN, URINE (11/11/2018) Microalb ug/mg Crea, External 16.3 [facility] Microalb mg/dl, External 1.55 [facility] Creatinine, Random U (UCRR), External 94.82 [facility] Urine specimen (specimen) 11/11/2018 Historical Provider CHEMISTRY & BLOOD GAS ORD ERABLES Final Result [facility] * CREATININE, URINE RANDOM (11/11/2018) Creatinine, Random U (UCRR), External 94.82 [facility] Urine specimen (specimen) 11/11/2018 Historical Provider URINALYSIS ORDERABLES Fin al Result Performing Organization Address [facility]/ZIP Co de Phone Number [facility] * COMPLETE BLOOD COUNT (11/11/2018) HCT, External 45.4 [facility] MCH, External 30.6 [facility] MCV, External 95.2 [facility] MCHC, External 32.2 [facility] Hemoglobin, External 14.6 [facility] WBC, External 6.51 [facility] RBC, External 4.77 [facility] PLT, External 234 [facility] RDW-CV, External [facility] Blood specimen (specimen) 11/11/2018 Historical Provider HEMATOLOGY & PF4 ORDERABL ES Final Result Performing Organization Address City/[facility]/ZIP Co de Phone Number [facility] * NEPHROLOGY PROFILE (INCLUDES BUN, CREATININE, CALCULATED GFR, ELECTROLYTES, CALCIUM, PHOSPHORUS, ALBUMIN) (11/11/2018) Phosphorus, External 2.8 [facility] Albumin, External 3.8 [facility] BUN, External 39 [facility] Chloride, External 107 [facility] Creatinine, External 1.71 [facility] Potassium, External 4.3 [facility] GFR, Calculated, External 38.61 [facility] Calculated Calcium, External [facility] Calcium, External 9.1 [facility] Sodium, External 143 [facility] CO2, External 28.8 [facility] Blood specimen (specimen) 11/11/2018 Result [facility] Provider PACKAGES & DNA PROBE ORDE RABLES Final Result Performing Organization Address [facility] Co de Phone Number [facility] * PROTEIN, TOTAL, RANDOM, URINE (11/11/2018) Tot Prot,Ur Random, External 17.4 [facility] Urine specimen (specimen) 11/11/2018 Result [facility] Provider URINALYSIS ORDERABLES Fin al Result Performing Organization Address [facility]/ZIP Co de Phone Number [facility] * PTH INTACT (11/11/2018) PTH, External 94 [facility] Blood specimen (specimen) 11/11/2018 Result [facility] Provider CHEMISTRY & BLOOD GAS ORD ERABLES Final Result Performing Organization Address [facility] Co de Phone Number [facility] documented in this encounter Visit Diagnoses Diagnosis CKD (chronic kidney disease) stage 3, GFR 30-59 ml/min ([facility])- Primary Chronic kidney disease, Stage III (moderate) documented in this encounter Orders Lab Orders Without Results Count Last Ordered D ate First Ordered Date COMPLETE BLOOD COUNT 1 11/24/2018 NEPHROLOGY PROFILE (INCLUDES BUN, CREATININE, CALCULATED GFR, ELECTROLYTES, CALCIUM, PHOSPHORUS, ALBUMIN) 1 11/24/2018 documented in this encounter Care Teams Technical Intern Relationship Specialty Start Date End Date Henry Lehman MD [address] [place] [address] PCP - General 11/22/18 documented as of this encounter
--- OUTSIDE RECORDS SUMMARY | 2024-04-05 13:13 | XMS_ITS | Referral Summary ---
Author Organization [facility] Address [address] [place] [address] Care Team Providers Care Costumer Assistant Name Role Phone Henry Lehman MD Primary Care Provider [phone] Encounters Date Type Department Care Team Description 04/04/2024 9:15 EST Office Visit [facility] Ophthalmology [address] [address] Henry Mercado MD Arrived 03/15/2024 Lab Requisition [facility] Pathology & Laboratory Medicine [address] [address] Scott Garcia, JAIMIE Neoplasm of unspecified behavior of bone, soft tissue, and skin 03/02/2024 8:00 EDT Office Visit [address] [address] Henry Mercado MD from Last 3 Months Allergies Active Allergy Reactions Criticality Noted Date [...] Coordination No te Formatting of this note [facility] sarika be different from the original. Patient has given permission for [facility] to verbally discuss the following information with Lan Maximino who has the following relationship to the [...] it. Patient has given permission for [facility] to verbally discuss the following information with Krystyna Diegosheryl who has the following relationship to the patient: Granddaughter : Scheduling/Appt/Billing/Payment Information (does not include clinical information unless specifically indicated with separate option) Medical Information including symptoms, diagnosis, medications, test results and treatment plan (does not include Mental Health unless specifically indicated with separate option) Permission remains in effect until the patient elects to revoke it. 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 No medication changes Social History Tobacco Use Types Packs/Day Years [...] Body Mass Index 27.97 10/29/2022 1026 EDT Functional Status * Because of a physical, mental, or emotional condition, does this person have difficulty doing errands alone such as visiting a doctor's office or shopping? Answer Date of Assessment Author No 06/09/2018 13:29 EST Mental Status * Because of a physical, mental, or emotional condition, does this person have serious difficulty concentrating, remembering, or making decisions? Answer Entry Date Author Yes 06/09/2018 13:29 EST Plan of Treatment Upcoming Encounters Date Type Department Care Team (Late st Contact Info) Description 05/02/2024 9:30 EST Office Visit [address] [phone] Henry Mercado MD [address] [place] [address], [address] [place] [phone] 06/13/2024 9:30 EST Office Visit [address] [address] Henry Mercado MD [address] [facility], [address] [place] [phone] Procedures Procedure Name Priority Date/Time Associated Diagnosis [...] - RIGHT EYE (04/04/2024 10:09 EST) Narrative [facility] POINT OF CARE - 04/04/2024 10:54 EST Time Out 04/04/2024. 10:09. Confirmed correct patient, procedure, site, and patient consented. Anesthesia Topical anesthesia was used. Anesthetic medications included Proparacaine 0.5%, Tetracaine 0.5%. Procedure Preparation included 5% betadine to ocular surface, eyelid speculum. A 30 gauge needle was used. Injection: 1.25 mg bevacizumab ??Route: intravitreal, Site: Right Eye [facility]: [address]-27, Lot: [id number], Expiration date: 04/09/2024 Post-op Post injection exam found visual acuity of at least counting fingers. The patient tolerated the procedure well. There were no complications. The patient received written and verbal post procedure care education. Post injection medications were not given. Henry Mercado MD OPHTH CLINIC PROCEDURES Final Re sult Performing Organization Address [facility]/ZIP Co de Phone Number [facility] POINT OF CARE * OCT, RETINA - OU - BOTH EYES (04/04/2024 9:47 EST) Narrative [facility] OPHTHALMOLOGY - 04/04/2024 10:53 EST Right Eye Quality was good. Scan locations included extrafoveal. Progression has improved. Findings include pigment epithelial detachment, subretinal fluid. Left Eye Progression has been stable. Notes Stable PP PED with resolution of subretinal fluid far from fovea right eye Drusen, outer retinal atrophy, left eye Henry Mercado MD OPHTH TOMOGRAPHY Final Result Performing Organization Address [facility] de Phone Number [facility] OPHTHALMOLOGY * SURGICAL PATHOLOGY (03/14/2024 13:30 EDT) Note to Patient The following pathology results have been interpreted by your pathologist and may be available to you before your health provider has had the opportunity to review them. Please allow time for your provider to receive these results and explore management options, if applicable. 03/16/2024 15:53 T [facility] Final Diagnosis A. SKIN OF ABDOMEN, RIGHT, SHAVE BIOPSY: - Dermal scar. See comment. B. SKIN OF FOREARM, LEFT, SHAVE BIOPSY: - Hypertrophic actinic keratosis. - Lesion extends to biopsy edge and base. C. SKIN OF PRE-AURICULAR REGION, LEFT, SHAVE BIOPSY: - Squamous cell carcinoma, moderately differentiated, invasive. - Lesion extends to biopsy base. 03/16/2024 15:53 T [facility] Diagnosis Comment In specimen A, [...] bisected and entirely submitted in C1. Brooklyn Naylor 03/16/2024 7:26 03/16/2024 15:53 T [facility] Performing Lab [facility] 03/16/2024 15:53 T [facility] Scanned Images 03/16/2024 15:53 [facility] Tissue SPECIMEN FROM SKIN / Unknown 03/14/2024 13:30 EDT 03/15/2024 20:47 EDT Tissue specimen (specimen) SPECIMEN FROM SKIN / Unknown 03/14/2024 13:30 EDT 03/15/2024 20:47 EDT Tissue specimen (specimen) SPECIMEN FROM SKIN / Unknown 03/14/2024 13:30 EDT 03/15/2024 20:47 EDT Scott ETIENNE PATHOLOGY ORDERABLES Final Result Performing Organization Address [facility] Co de Phone Number [facility] [address] [place] [address] * OCT, RETINA - OU - BOTH EYES (03/02/2024 9:07 EDT) Narrative [facility] OPHTHALMOLOGY - 03/02/2024 13:36 [...] OPHTH TOMOGRAPHY Final Result Performing Organization Address [facility] de Phone Number [facility] OPHTHALMOLOGY * INTRAVITREAL INJECTION, PHARMACOLOGIC AGENT - OD - RIGHT EYE (03/02/2024 9:05 EDT) Narrative [facility] POINT OF CARE - 03/02/2024 13:36 EDT Time Out 03/02/2024. 8:58. Confirmed correct patient, procedure, site, and patient consented. Anesthesia Topical anesthesia was used. Anesthetic medications included Proparacaine 0.5%, Tetracaine 0.5%. Procedure Preparation included 5% betadine to ocular surface, eyelid speculum. A 30 gauge needle was used. Injection: 1.25 mg bevacizumab ??Route: intravitreal, Site: Right Eye [facility]: [address]-47, Lot: [id number], Expiration date: 03/03/2024 Post-op Post injection exam found visual acuity of at least counting fingers. The patient tolerated the procedure well. There were no complications. Post injection medications were not given. Henry Mecrado MD OPHTH CLINIC PROCEDURES Final Re sult Performing Organization Address [facility]/State/ZIP Co de Phone Number [facility] from Last 3 Months Insurance [place] [phone] , [place] [id number] Care Teams Costumer Assistant Relationship Specialty Start Date End Date Henry Lehman MD [address] [place] [address] PCP - General 11/22/18
--- OUTSIDE RECORDS SUMMARY | 2024-04-05 13:13 | XMS_ITS | Encounter Summary ---
Author Organization [facility] Address [address] [place] [address] Care Team Providers Care Cmo & President Name Role Phone Henry Lehman MD Primary Care Provider [phone] Encounter Details Date Type Department Care Team (Late st Contact Info) Description 12/02/2022 Lab Requisition [facility] Pathology & Laboratory Medicine - [address] [id number] Brock Cordero MD [address] [place] [phone] Encounter for other general examination Social History [...] Info) Description 05/02/2024 9:30 EST Office Visit [facility] Ophthalmology [address] [id number] Henry Mercado MD [address] [place] [phone] 06/13/2024 9:30 EST Office Visit [facility] Ophthalmology [address] [id number] Henry Mercado MD [address] [place] [phone] documented as of this encounter Procedures Procedure Name Priority Date/Time Associated Diagnosis Comments SURGICAL PATHOLOGY Today 12/01/2022 13 :00 EDT documented in this encounter Results * SURGICAL PATHOLOGY (12/01/2022 13:00 EDT) Note to Patient The following pathology results have been interpreted by your pathologist and may be available to you before your health provider has had the opportunity to review them. Please allow time for your provider to receive these results and explore management options, if applicable. 12/04/2022 13:25 EDT [facility] Final Diagnosis A. SKIN OF LEG, LEFT, BIOPSY: - Verruca vulgaris. B. SKIN OF ARM, RIGHT, BIOPSY: - Verruca vulgaris. C. SKIN OF LIP, UPPER, BIOPSY: - Actinic keratosis. 12/04/2022 13:25 EDT [facility] Attestation By the signature below, the attending physician certifies that they have 1) personally conducted a gross and/or microscopic examination of the described specimen(s), and/or personally interpreted the results of laboratory testing of the described specimen(s), and 2) personally rendered or confirmed the above diagnosis. 12/04/2022 13:25 EDT [facility] at 1325 Microscopic Description A., B. The stratum corneum is thickened by compact orthohyperkeratosis with tiers of parakeratosis and foci of hemorrhage. The epidermis is hyperplastic with papillomatosis and acanthosis. The acanthotic rete ridges have an inward-bending configuration. The superficial keratinocytes have perinuclear vacuoles. The granular layer is accentuated. C. The stratum corneum is thickened by orthohyperkeratosis with foci of parakeratosis. The epidermis is focally thickened with elongate and bulbous rete ridges. The basal keratinocytes show a variable degree of atypia including nuclear enlargement, dispolarity, and hyperchromasia. The dermis is marked by solar elastosis, vascular ectasia and a lymphohistiocytic infiltrate. 12/04/2022 13:25 [facility] Clinical History Skin lesions 12/04/2022 13:25 [facility] Gross Description A. Received in formalin labelled with proper patient identification (initials F, B) and A. L leg is a punch biopsy of slater-white skin (0.5 cm in diameter and 0.5 cm in depth). There is a slater waxy papule (0.3 x 0.3 x 0.2 cm) present. The margins are inked blue. The tissue is bisected and entirely submitted in A1. B. Received in formalin labelled with proper patient identification (initials F, B) and B. R arm is an unoriented elliptical excision of slater skin (1.4 x 0.8 cm, excised to a depth of 0.4 cm). There is a slater keratotic papule (1.0 x 0.7 x 0.6 cm) present. The margins are inked black. The specimen is serially sectioned and entirely submitted as B1 tips, reverse en face and B2 and B3 central sections. C. Received in formalin labelled with proper patient identification (initials F, B) and C. Upper lip is a presumed punch biopsy of white-brown crusted skin (0.3 cm in diameter and 0.4 cm in depth). The margin is inked blue and the tissue is submitted intact in C1. JAIMIE MCKEON(ASCP) 12/03/2022 11:09 12/04/2022 13:25 [facility] Performing Lab [facility] 12/04/2022 13:25 EDT [facility] Scanned Images 12/04/2022 13:25 EDT [facility] Tissue TISSUE SPECIMEN FROM SKIN / Unknown 12/01/2022 13:00 EDT 12/03/2022 8:20 EDT Tissue specimen (specimen) SPECIMEN FROM SKIN / Unknown 12/01/2022 13:00 EDT 12/03/2022 8:21 EDT Tissue specimen (specimen) SPECIMEN FROM SKIN / Unknown 12/01/2022 13:00 EDT 12/03/2022 8:21 EDT us Brock Cordero MD PATHOLOGY ORDERABLES Final Resul t [facility] [address] [place] [address] documented in this encounter Visit Diagnoses Diagnosis Encounter for other general examination documented in this encounter Care Teams Cmo & President Relationship Specialty Start Date End Date Henry Lehman MD [address] [place] [address] PCP - General 11/22/18 documented as of this encounter
--- OUTSIDE RECORDS SUMMARY | 2024-04-05 13:13 | XMS_ITS | Encounter Summary ---
Author Organization [facility] Address [address] [place] [address] Care Team Providers Care Fabric Worker Fitter Name Role Phone Henry Lehman MD Primary Care Provider [phone] Reason for Visit * Reason Onset Date Comments Appointment Related 06/26/2020 Encounter Details Date Type Department Care Team ([facility] st Contact Info) Description 06/26/[address] [facility] Nephrology - [address] [phone] Unknown, Doctor Appointment Related Social History Tobacco Use Types [...] * Telephone Encounter - Isabella Ortiz - 06/26/2020 1514 EST Left message with the language line to schedule follow up. documented in this encounter Plan of Treatment Upcoming Encounters Date Type Department Care Team (Late st Contact Info) Description 05/02/2024 9:30 EST Office Visit [address] [phone] Henry Mercado MD [address] [place] [address] [phone] 06/13/2024 9:30 EST Office Visit [address] [phone] Henry Mercado MD [address] [place] [phone] documented as of this encounter Visit Diagnoses Not on filedocumented in this encounter Care Teams Fabric Worker Fitter Relationship Specialty Start Date End Date Henry Lehman MD [address] [place] [address] PCP - General 11/22/18 documented as of this encounter
[2024-04-05 20:02] LABS: Anion Gap 8.3 mmol/L (3-11); BUN 35 mg/dL (7-18); CO2 31.7 mmol/L (21.0-32.0); CREATININE 1.9 mg/dL (0.70-1.30); Calcium 10.1 mg/dL (8.5-10.1); Chloride 105 mmol/L (98-107); Estimated GFR 33.72 (mL/min/1.73m2); Glucose 100 mg/dL (74-106); Potassium 4.3 mmol/L (3.5-5.1); Sodium 145 mmol/L (136-145)
== END 2024-04-05 13:12 | disposition home or self-care (01) ==
LOC: NCHCN 13:11
PROVIDERS: PCP Internal Medicine; Visit Provider Internal Medicine
DX: I10 Essential (primary) hypertension (principal); R97.20 Elevated prostate specific antigen [PSA]
CPT/HCPCS: 80048; 84154

== ENCOUNTER 2024-08-03 13:49 | Outpatient (REF) | payer MEDICARE, SELFPAY ==
--- NOTE | 2024-08-03 12:10 | SKI_PTH ---
PATIENT: Anup Stanton LOC: [facility]#:[id number] AGE/SX: 89/M ROOM: RE08/03/[address]: Henry Lehman : 1935 BED: DIS: 08/03/2024 SPEC #: [id number] RECD: 08/03/24 18:28 STATUS: TEDDY RUBIO #: [id number] KOURTNEY: 08/03/24 12:[address]: Henry Lehman DEPT: Surgical Specimen RECD BY: Allison Cali Tissues: 1 - SKIN BIOPSY(SHAVE/PUNCH) Procedures: SKIN LEVEL 4 Comments: [id number]
== END 2024-08-03 13:50 | disposition home or self-care (01) ==
LOC: NCHCN 13:49
PROVIDERS: PCP Internal Medicine; Visit Provider Internal Medicine
DX: D04.62 Carcinoma in situ of skin of left upper limb, including shoulder (principal)
CPT/HCPCS: 88305

== ENCOUNTER 2024-11-01 19:13 | Outpatient (REF) | payer MEDICARE, SELFPAY ==
[2024-11-01 21:46] LABS: HCT 39.6 % (40.0-50.0); HGB 13.1 g/dL (13.5-17.5); MCHC 33.1 % (32.0-36.0); MCV 94 fL (80-95); MPV 10.8 fL (8.0-11.0); Platelet Count 252 10^3/uL (130-400); RBC 4.23 10^6/uL (4.36-5.78); RDW 13.7 % (11.8-14.1); RDW-SD 46.8 fL; WBC 9.63 10^3/uL (4.4-10.8)
[2024-11-01 22:24] LABS: C-Reactive Protein < 0.50 mg/dL (<or=0.5); Creatine Kinase 121 U/L (39-308); LDH 274 U/L (85-227); TSH 1.01 uIU/mL (0.36-3.74)
[2024-11-01 23:16] LABS: Vitamin B12 522 pg/mL (193-986)
[2024-11-07 08:38] LABS: Methylmalonic Acid 0.28 nmol/mL (<=0.40)
== END 2024-11-01 19:14 | disposition home or self-care (01) ==
LOC: NCHCN 19:13
PROVIDERS: PCP Internal Medicine; Visit Provider Internal Medicine
DX: R27.8 Other lack of coordination (principal); R53.1 Weakness
CPT/HCPCS: 80186; 82550; 85027; 82607; 83615; 84443; 86140

== ENCOUNTER 2025-02-07 15:45 | Outpatient (REF) | payer MEDICARE, SELFPAY ==
[2025-02-07 20:57] LABS: Anion Gap 7.3 mmol/L (3-11); BUN 46 mg/dL (7-18); CO2 31.7 mmol/L (21.0-32.0); Calcium 9.8 mg/dL (8.5-10.1); Chloride 102 mmol/L (98-107); Estimated GFR 28.10 (mL/min/1.73m2); Glucose 98 mg/dL (74-106); Potassium 4.6 mmol/L (3.5-5.1); Sodium 141 mmol/L (136-145)
== END 2025-02-07 15:46 | disposition home or self-care (01) ==
LOC: NCHCN 15:45
PROVIDERS: PCP Internal Medicine; Visit Provider Nurse Practitioner Family
DX: N18.30 Chronic kidney disease, stage 3 unspecified (principal)
CPT/HCPCS: 80048